=== PATIENT | female | born 1985 | race Caucasian/White ===

== ENCOUNTER 2018-11-04 23:02 | Inpatient (IN) | payer OTHER ==
[2018-11-05] MEDS ORDERED: ALBUTEROL SO4 2.5/IPRATROPIUM 0.5 INH SOL 3 ML VIAL.NEB. NEB ONE ×8 (00:03→16:30)
[2018-11-05] MEDS ORDERED: predniSONE 20 MG TABLET (UD) PO ONE (00:04)
--- NOTE | 2018-11-05 00:13 | PDOC ---
History of Present Illness - General Chief Complaint: Asthma Stated Complaint: ASTHMA History Source: Patient Exam Limitations: No Limitations - History of Present Illness Initial Comments: 11/05/18 00:06 33 yo F with h/o asthma, with frequent exacerbations since 04/24. has been on steroids over 6 times since then. pt states today she is here with sob, wheezing sore throat and cough. has been coughing up blood tinged sputum and yellow phlegm. no f/c no n/v no sickcontacts. pt states she took 20 mg prednisone prior to arrival and used albuterol 1 pump earlier. sees a trucker hand dr Rojas, states she has seen ENT and hasn't seen sandblast operator yet. 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 Past History - Past Medical History Allergies/Adverse Reactions: Allergies Allergy/AdvReac Type Severity Reaction Status Date / Time No Known Allergies Allergy Verified 11/04/18 23:29 Home Medications: Ambulatory Orders Metoclopramide HCl [Reglan] 10 mg PO Q6H PRN #20 tablet 04/08/16 Naproxen [Naprosyn -] 500 mg PO BID PRN #20 tablet 04/08/16 Asthma: Yes COPD: No - Surgical History Appendectomy: Yes - Suicide/Smoking/Psychosocial Hx Smoking History: Former smoker Have you smoked in the past 12 months: No Information on smoking cessation initiated: No Hx Alcohol Use: No Drug/Substance Use Hx: No Substance Use Type: None Hx Substance Use Treatment: No Review of Systems - Review of Systems Constitutional: No: Chills, Diaphoresis, Fever, Loss of Appetite HEENTM: Yes: Throat Pain. No: Eye Pain Respiratory: Yes: Cough, Shortness of Breath, Wheezing Cardiac (ROS): No: Chest Pain Musculoskeletal: No: Back Pain, Gout, Joint Pain Integumentary: Yes: Rash All Other Systems: Reviewed and Negative *Physical Exam - Vital Signs Last Vital Signs Temp Pulse Resp BP Pulse Ox 99.6 F 111 H 20 132/75 99 11/04/18 23:29 11/04/18 23:29 11/04/18 23:29 11/04/18 23:29 11/04/18 23:29 - Physical Exam Comments: 11/05/18 00:08 awake alert bilat expiratory wheezing. normal effort. no retractions. heart reg tacycardia. no mrg abd soft nt nd. ext [facility] ED Treatment Course - LABORATORY CBC & Chemistry Diagram: 11/05/18 03:45 11/05/18 03:45 Medical Decision Making - Medical Decision Making 11/05/18 00:10 33 yo F with h/o asthma, frequent exacerbations poorly controlled. suspect environmental triggers. plan nebs cxr r/o pneumonia. reassess. recommend allergy fu. pt on symbicort, also d/w possiblity of dog worsening sxs. or other exposers in home. 11/05/18 04:10 pt cxr with pna, due to asthma exacerbation and asthma, will admit. pt recently on abx, outpt. cally treat with azithromycin, ceftriaxone. microblog sent to [facility]. pt sees pulmonary dr quinonez, states no primary. *DC/Admit/Observation/Transfer Diagnosis at time of Disposition: Pneumonia, Asthma attack - Discharge Dispostion Decision to Admit order: Yes - Referrals - Patient Instructions - Post Discharge Activity
[2018-11-05] MEDS ORDERED: predniSONE 20 MG TABLET (UD) ONE (01:36)
[2018-11-05] MEDS ORDERED: AZITHROMYCIN IVPB 250 MG in DEXTROSE 5%-WATER - 250 ML IVPB ONE (03:06)
[2018-11-05] MEDS ORDERED: CEFTRIAXONE 1,000 MG in DEXTROSE 5%-WATER - 50 ML IVPB ONE (03:06)
[2018-11-05] MEDS ORDERED: CEFTRIAXONE 1 GM/50 ML BAG ONE (03:49)
[2018-11-05 04:13] LABS: BASO % 0.2 % (0-2.0); EOS % 0.3 % (0-4.5); HEMATOCRIT 37.9 % (32.4-45.2); HEMOGLOBIN 12.9 GM/dL (10.7-15.3); LYMPH % 3.4 % (8-40); MCH 28.3 pg (25.7-33.7); MCHC 34.1 g/dl (32.0-36.0); MEAN CELL VOLUME 83.1 fl (80-96); MEAN PLT VOLUME 8.9 fl (7.5-11.1); MONO % 2.1 % (3.8-10.2); PLATELET COUNT 214 K/MM3 (134-434); RBC 4.56 M/mm3 (3.60-5.2); RDW 13.4 % (11.6-15.6); WHITE BLOOD COUNT 10.3 K/mm3 (4.0-10.0)
--- NOTE | 2018-11-05 04:31 | PN ---
Teaching Attending Note Name of Resident: Jesse Rob ATTENDING PHYSICIAN STATEMENT I saw and evaluated the patient. I reviewed the resident's note and discussed the case with the resident. I agree with the resident's findings and plan as documented. SUBJECTIVE: Patient is a 33 year old woman with PMH of asthma, with frequent exacerbations since 04/24 presents with SOB, wheezing sore throat and cough . She has been on steroids over 6 times since 04/24. Has been coughing up blood tinged sputum and yellow phlegm. Says she took 20 mg prednisone prior to arrival and used albuterol 1 pump earlier. Sees a corporate learning consultant Dr Rojas. Also saw ENT but hasn' t seen train operations supervisor yet. 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 Denies fever, chills, nausea, vomiting or dizziness. Feels congested with sorethroat and pain in her posterior lower chest area due to coughing. Cough is productive of greenish sputum. Has urinary frequency but no dysuria. Has TREVINO and sleeps with four pillows at home. No leg swelling. Admits to alcohol use, cocaine and marijuana use. Generally nonadherent with medical care - cant remember her medications and does not remember whether she had Flu vaccination or not. LMP was 2 weeks ago, but says peiods are irregular due to an IUD. OBJECTIVE: Alert and in no respiratory distress Vital Signs Period Temp Pulse Resp BP Sys/Garcia Pulse Ox Last 24 Hr 99.6 F 111 20 132/75 99 HEENT: No Jaundice, eye redness or discharge, PERRLA, EOMI. Normocephalic, atraumatic. External ears are normal and hearing is grossly intact. No nasal discharge. Neck: Supple, nontender. No palpable adenopathy or thyromegaly. No JVD Chest: Good effort. Diminished breath sounds. Clear to auscultation and percussion. Heart: Regular. No S3, rub or murmur Abdomen: Not distended, soft, nontender and no HSM. No rebound or guarding. Normal bowel sounds. Ext: Peripheral pulses intact. No leg edema. Skin: Warm and dry. No petechiae, rash or ecchymosis. Neuro: Alert. Oriented x3. CN 2-12 grossly intact. Sensation grossly intact in all four extremities and DTR are symmetric. Psych: Appropriate mood and affect. Good insight. Home Medications Medication Instructions Recorded Metoclopramide HCl [Reglan] 10 mg PO Q6H PRN #20 tablet 04/08/16 Naproxen [Naprosyn -] 500 mg PO BID PRN #20 tablet 04/08/16 Abnormal Lab Results 11/05/18 03:45 WBC 10.3 H Absolute Neuts (auto) 9.7 H Neutrophils % 94.0 H D Lymphocytes % 3.4 L D Monocytes % 2.1 L ASSESSMENT AND PLAN: 1. Asthma exacerbation and Pneumonia - CXR shows cardiomegaly and RLL infiltrate with pulmonary congestion. EKG shows sinus tachycardia with T wave inversion in leads 3, V1 and V2. Will strept throat swab, flu swab and urine legionella antigen and UA. Blood cultures done in the ER. Will treat with Rocephin, azithromycin, duoneb and solumedrol 40 mg q 8 hours. Repeat EKG and get troponin. May have undiagnosed CHF. Will get ECHO, but in the meantime give 40 mg IV lasix , restrict dietary salt intake and get daily standing weight. Consult cardiology and get outpatient PFTs. May have a component of sleep apnea/obesity- hypoventilation syndrome. Most important, patient needs continuous education about her comorbid conditions and the importance of strict adherence to prescribed care. 2. Morbid obesity Counseled on the risks associated with obesity. Will provide patient all the necessary assistance, counseling and positive reinforcement to facilitate weight loss. Consult restaurant area manager. 3. DVT prophylaxis - Lovenox 40 mg SQ q 12 hours. 4. Advance directives - Full code
[2018-11-05 04:36] LABS: ALBUMIN 3.8 g/dl (3.4-5.0); ALK PHOS 53 U/L (45-117); ANION GAP 8 MMOL/L (8-16); BILIRUBIN,TOTAL 0.7 mg/dL (0.2-1); BLOOD UREA NITROGEN 12 mg/dL (7-18); CALCIUM 8.4 mg/dL (8.5-10.1); CHLORIDE 106 mmol/L (98-107); CO2 24 mmol/L (21-32); CREATININE 0.6 mg/dL (0.55-1.3); GLUCOSE,RANDOM 141 mg/dL (74-106); SGOT/AST 24 U/L (15-37); SGPT/ALT 20 U/L (13-61); SODIUM 137 mmol/L (136-145); TOT PROT 7.2 g/dl (6.4-8.2)
[2018-11-05] MEDS ORDERED: AZITHROMYCIN IVPB 500 MG/250 ML BAG IVPB ONE (04:40)
[2018-11-05 04:48] LABS: POTASSIUM 4.5 mmol/L (3.5-5.1)
--- NOTE | 2018-11-05 06:04 | HP ---
CHIEF COMPLAINT: Asthma exacerbation PCP: [facility] Axle And Frame Mechanic: Dr. Bob Salgado HISTORY OF PRESENT ILLNESS: Pt. is a 33 y.o. F presenting with shortness of breath, wheezing and and sinus congestions. Pt. states that she has been having multiple asthma exacerbations since April 2018 necessitating six courses of Prednisone and "5-12" Urgent Care/ Hospital visits over that time. Pt. states that she recently (last week)completed an antibiotic course for her sinus congestion per her visit with an ENT. Pt. states that she does not have a PCP and that she visits different Urgent Care centers and hospitals to receive treatment for her asthma exacerbations. Pt. states she was receiving "injections " for her asthma. Pt. does not remember her current medication list or her Pharmacy exactly but states that she was started on Symbicort by her Axle And Frame Mechanic and a Ventolin inhaler. Pt. endorses taking Prednisone on her own regimen that differs from what she was prescribed. She states that her last prescription was for 60mg x 5 days without taper. Pt. took 40 mg for 3 days and then stopped until she started feeling the current asthma exacerbation. Pt. endorses coughing up blood-tinged sputum at home six times, however has not recurred in the hospital. Pt. endorses 4 pillow orthopnea, inability to climb 2 flight of stairs without becoming short of breath even when she is not in the middle of an asthma exacerbation. Pt. states that the dyspnea on exertion has adversely affect her sex life. Pt. states that she "cant even bend down to tie her shoe without becoming short of breath. Pt. endorses chest soreness from coughing, nasal congestion, productive cough of now yellow-white sputum, increased urination, hoarse voice, sore throat, headache and fever of 103.1 at home. Pt. denies any diarrhea, constipation, blood in stool or urine, changes in vision, or any vomiting. ER course was notable for: (1)Duonebs x3, Azithro/Ceftriaxone, Prednisone 40mg (2)EKG, BCx. labs (3) Recent Travel: No PAST MEDICAL HISTORY: Asthma, Obesity PAST SURGICAL HISTORY: Appendectomy, x 2, B/l Bunionectomy Social History: Smoking: Quit in April, used to smoke socially (unable to quantify) Alcohol: Drinks more than 5 drinks on weekends, "states she drinks alot on weekends" Drugs: Tried Cocaine( last use was 1 month ago, inhaled, never IV), tried Marijuana oils (unable to use because it causes shortness of breath) Work: DRIVER SALES Living: Pt. endorses having dog, lives with and kids alone. Family History: Father- Asthma; Mother- Asthma, Myasthenia Gravis, HTN, Lupus; Aunt- Intubated for Asthma on multiple occasions and "hospitalized for Asthma every 3 months for exacerbations" Allergies Heat, Cold, Dust, mold HOME MEDICATIONS: Home Medications Medication Instructions Recorded Albuterol Sulfate Inhaler - 1 - 2 inh PO Q4H 11/05/18 [Ventolin Hfa Inhaler -] Prednisone [Deltasone] 40 mg PO DAILY 11/05/18 REVIEW OF SYSTEMS As per HPI PHYSICAL EXAMINATION Vital Signs - 24 hr 11/04/18 23:29 Temperature 99.6 F Pulse Rate 111 H Respiratory 20 Rate Blood Pressure 132/75 O2 Sat by Pulse 99 Oximetry (%) GENERAL: Awake, alert, and fully oriented, in no acute distress. HEAD: Normal with no signs of trauma. EYES: Pupils equal, round and reactive to light, extraocular movements intact, sclera anicteric, conjunctiva clear. No lid lag. EARS, NOSE, THROAT: B/l erythematous TM, nares patent with boggy erythematous nasal polyps?, oropharynx with mild erythema. Moist mucous membranes. NECK: Normal range of motion, supple, JVD +, without lymphadenopathy or masses. LUNGS: Breath sounds equal, clear to auscultation bilaterally. No wheezes, and no crackles. No accessory muscle use. HEART: Tachycardic regular rate and rhythm, normal S1 and S2 without murmur ABDOMEN: Soft, nontender, obese, not distended, normoactive bowel sounds, no guarding, no rebound, no masses. MUSCULOSKELETAL: Normal range of motion at all joints. No bony deformities or tenderness. No CVA tenderness. UPPER EXTREMITIES: 2+ radial pulses, warm, well-perfused. No cyanosis. No clubbing. No peripheral edema. LOWER EXTREMITIES: 2+ dorsal pedal pulses, warm, well-perfused. No calf tenderness. No peripheral edema. NEUROLOGICAL: Normal speech. PSYCHIATRIC: Cooperative. Good eye contact. Appropriate mood and affect. SKIN: Warm, dry, normal turgor, no rashes or lesions noted, normal capillary refill. Laboratory Results - last 24 hr 11/05/18 11/05/18 11/05/18 00:55 03:45 03:45 WBC 10.3 H RBC 4.56 Hgb 12.9 Hct 37.9 MCV 83.1 MCH 28.3 MCHC 34.1 RDW 13.4 Plt Count 214 D MPV 8.9 Absolute Neuts (auto) 9.7 H Neutrophils % 94.0 H D Lymphocytes % 3.4 L D Monocytes % 2.1 L Eosinophils % 0.3 D Basophils % 0.2 Nucleated RBC % 0 Sodium 137 Potassium 4.5 Chloride 106 Carbon Dioxide 24 Anion Gap 8 BUN 12 Creatinine 0.6 Creat Clearance w eGFR 113.77 Random Glucose 141 H Lactic Acid Calcium 8.4 L Total Bilirubin 0.7 AST 24 ALT 20 Alkaline Phosphatase 53 Total Protein 7.2 Albumin 3.8 Urine HCG, Qual Negative 11/05/18 03:45 WBC RBC Hgb Hct MCV MCH MCHC RDW Plt Count MPV Absolute Neuts (auto) Neutrophils % Lymphocytes % Monocytes % Eosinophils % Basophils % Nucleated RBC % Sodium Potassium Chloride Carbon Dioxide Anion Gap BUN Creatinine Creat Clearance w eGFR Random Glucose Lactic Acid 0.9 Calcium Total Bilirubin AST ALT Alkaline Phosphatase Total Protein Albumin Urine HCG, Qual ASSESSMENT/PLAN: Pt. is a 33 y.o. F w/ PMHx. of Asthma presents with shortness of breath, wheezing and and sinus congestions. #Asthma Exacerbation 2/2 Allergies vs. Pnuemonia? Medication Reconciliation Duonebs RQID Prednisone 40mg Q8H Pulmonology consult (Dr. Morejon) appreciated CXR appreciated: shows increased pulmonary vasculature and developing RLL PNA? Given Azithromycin and Ceftriaxone in ED f/u BCx. f/u UA, polyuria may be d/t prednisone use vs. UTI. LA: 0.9 f/u Influenza swab Would consider giving Pneumococal Vaccine Would consider referral to talkback host on discharge would consider starting daily antihistamine, Pt. states she has tried this in the past but unsure of compliance and duration. #R/o new onset CHF Pt. stated that her Axle And Frame Mechanic referred her to see marketing operations intern, however she has been unable to see one d/t Prior-authorization issues. f/u Echo Cardiology consult (Dr. Valenzuela) appreciated 40mg IV Lasix- Diagnostic and Therapeutic f/u Trop f/u BNP #FEN no IVF, encourage PO intake monitor electrolytes and replete as needed Na/cholesterol restricted diet #DVT Ppx. Lovenox 40mg SQ Visit type - Emergency Visit Emergency Visit: Yes ED Registration Date: 11/05/18 Care time: The patient presented to the Emergency Department on the above date and was hospitalized for further evaluation of their emergent condition. - New Patient This patient is new to me today: Yes Date on this admission: 11/05/18 - Critical Care Critical Care patient: No
[2018-11-05] MEDS ORDERED: FUROSEMIDE 40 MG/4 ML INJECTABLE VIAL IVPUSH ONE (06:05)
[2018-11-05 06:33] LABS: N-TERMINAL BNP 11.7 pg/ml (5-125)
[2018-11-05 07:59] LABS: ANISOCYTOSIS 1+; MACROCYTOSIS 0; PLATELET ESTIMATE NORMAL
[2018-11-05] MEDS ORDERED: FUROSEMIDE 40 MG/4 ML INJECTABLE VIAL ONE (08:23)
[2018-11-05] MEDS: ALBUTEROL SO4 2.5/IPRATROPIUM 0.5 INH SOL 3 ML VIAL.NEB. NEB SCH ×4 (09:13→20:37)
[2018-11-05] MEDS ORDERED: ACETAMINOPHEN 325 MG TABLET (FP) ONE (09:22)
[2018-11-05] MEDS: ACETAMINOPHEN 500 MG TABLET (FP) PO PRN (09:26)
--- NOTE | 2018-11-05 09:36 | CON.CARD ---
Consult Consult Specialty:: cardio - History of Present Illness Chief Complaint: sob History of Present Illness: 33 F here with sob. Pt with asthma and multiple recent exacerbations treated at multiple outside locations with fragmentation of care. Pt. endorses chest soreness from coughing, nasal congestion, productive cough of now yellow-white sputum, increased urination, hoarse voice, sore throat, headache and fever of 103.1 at home. Pt reports baseline, chronic/stable orthopnea and sob on stairs. CXR here read as PNA and vascular congestion also suspected--hence we are consulted for possibility of CHF. BNP is 11 she states that she has had no chest pain other than above related to coughing. at times chest feels "tight" related to airflow/asthma--this is stable sx long time. at times notes feet swollen when on her feet a lot of the day--can't say when it started but not recent onset and stable finding/not severe FH: known AL's in father's relatives. knows of no h/o cardiomyop/CHF - Alcohol/Substance Use Hx Alcohol Use: No - Smoking History Smoking history: Former smoker Have you smoked in the past 12 months: No Home Medications - Allergies Allergies/Adverse Reactions: Allergies Allergy/AdvReac Type Severity Reaction Status Date / Time No Known Allergies Allergy Verified 11/04/18 23:29 - Home Medications Home Medications: Ambulatory Orders Albuterol Sulfate Inhaler - [Ventolin Hfa Inhaler -] 1 - 2 inh PO Q4H 11/05/18 Azelastine HCl 205.5 mcg NS 11/05/18 Budesonide/Formeterol Fumarate [SYMBICORT 160/4.5mcg -] 1 inh PO BID 11/05/18 Flunisolide 25 ml NS 11/05/18 Montelukast Sodium [Singulair] 10 mg PO 11/05/18 Prednisone [Deltasone] 40 mg PO DAILY 11/05/18 Review of Systems - Review of Systems Constitutional: denies: Chills, Fever Eyes: denies: Eye Pain HENT: denies: Nasal Congestion Neck: denies: Stiffness Cardiovascular: denies: Palpitations Respiratory: reports: Cough, Orthopnea, Wheezing Gastrointestinal: denies: Diarrhea, Rectal Bleeding Genitourinary: denies: Burning, Hematuria Musculoskeletal: denies: Muscle Pain Integumentary: denies: Rash Neurological: denies: Numbness, Seizure, Syncope Endocrine: denies: Excessive Sweating Hematology/Lymphatic: denies: Excessive Bleeding Vital Signs: Vital Signs Temperature 98.0 F 11/05/18 08:00 Pulse Rate 100 H 11/05/18 08:00 Respiratory Rate 18 11/05/18 08:00 Blood Pressure 113/69 11/05/18 08:00 O2 Sat by Pulse Oximetry (%) 95 11/05/18 08:00 Constitutional: Yes: Well Nourished, No Distress Eyes: No: Sclera Icterus HENT: No: Nasal Congestion Neck: No: Decreased ROM Respiratory: Yes: CTA Bilaterally (signif decr airflow sounds diffusely). No: Accessory Muscle Use, Rales, Wheezes Gastrointestinal: Yes: Normal Bowel Sounds. No: Distention, Hepatomegaly, Palpable Mass, Tenderness Cardiovascular: Yes: Regular Rate and Rhythm JVD: No Carotid Bruit: No PMI: Non-Displaced Heart Sounds: Yes: S1, S2. No: Gallop Murmur: No: Systolic Murmur, Diastolic Murmur Musculoskeletal: Yes: Other (No kyphosis) Extremities: No: Cool, Cyanosis Edema: No Peripheral Pulses: 2+ Left Carotid, 2+ Right Carotid, 2+ Left Doralis Pedis, 2+ Right Dorsalis Pedis Integumentary: No: Jaundice Neurological: Yes: Alert, Oriented (x3) Psychiatric: No: Agitated - Other Data Labs, Other Data: CBC, BMP 11/05/18 03:45 11/05/18 03:45 Troponin, BNP 11/05/18 03:45 Troponin I < 0.02 B-Natriuretic Peptide 11.7 Troponin, BNP 11/05/18 03:45 Troponin I < 0.02 B-Natriuretic Peptide 11.7 Laboratory Tests 11/05/18 11/05/18 03:45 03:45 WBC 10.3 H Hgb 12.9 Plt Count 214 D Sodium 137 Potassium 4.5 Carbon Dioxide 24 BUN 12 Creatinine 0.6 AST 24 ALT 20 Alkaline Phosphatase 53 Troponin I < 0.02 B-Natriuretic Peptide 11.7 Assessment/Plan CXR: "new congestive changes with large heart and weak inspiration vs 2015" images reviewed: no effusions, no fluid in fissure, no pulm edema suspected, no vasc redistribution noted ECG x 2: sinus, no q's or ST-T abn SOB, a.e. asthma: -CXR not impressive for vasc congestion or other findings of heart failure in my opinion, nor does heart look impressively enlargd. BNP 11. -phys exam appears euvolemic -check echo -given lasix 40 IV x 1 in ER -do not think pt is in heart failure--defer further diuresis -asthma mgmt per pulm
--- NOTE | 2018-11-05 09:55 | EKG ---
Test Reason : Blood Pressure : / mmHG Vent. Rate : 104 BPM Atrial Rate : 104 BPM P-R Int : 162 ms QRS Dur : 080 ms QT Int : 338 ms P-R-T Axes : 056 049 020 degrees QTc Int : 444 ms SINUS TACHYCARDIA OTHERWISE NORMAL ECG WHEN COMPARED WITH ECG OF 05-NOV-2018 03:16, NO SIGNIFICANT CHANGE WAS FOUND Confirmed by YELENA DAVILA MD ([id number]) on 11/05/2018 9:55:34 AM Referred By: JOHNNIE DE LEON Confirmed By:YELENA DAVILA MD
--- NOTE | 2018-11-05 09:57 | EKG ---
Test Reason : Blood Pressure : / mmHG Vent. Rate : 104 BPM Atrial Rate : 104 BPM P-R Int : 152 ms QRS Dur : 076 ms QT Int : 348 ms P-R-T Axes : 054 065 007 degrees QTc Int : 457 ms SINUS TACHYCARDIA OTHERWISE NORMAL ECG NO PREVIOUS ECGS AVAILABLE Confirmed by YELENA DAVILA MD ([id number]) on 11/05/2018 9:57:14 AM Referred By: Confirmed By:YELENA DAVILA MD
[2018-11-05] MEDS ORDERED: PHENOL 177 ML SPRAY BOTTLE MM PRN (09:58)
--- NOTE | 2018-11-05 10:12 | PN ---
Physical Exam: SUBJECTIVE: Patient seen and examined at bedside. No new events. Continues to be short of breath but improved. She has chest discomfort when she coughs. Denies JUAN, palpitations, abdominal pain, nausea,vomiting, fever or chills. OBJECTIVE: Vital Signs Period Temp Pulse Resp BP Sys/Garcia Pulse Ox Last 24 Hr 98.0 F-100.6 F 100-111 18-20 113-132/69-75 95-99 GENERAL: AAOx3, NAD HEAD: NCAT EYES: PERRL, EOMI, sclera anicteric, conjunctiva clear. No ptosis. ENT: moist mucous membranes. NECK: Trachea midline, full range of motion, supple. LUNGS:Diminished breath sounds bilat., scattered expiratory wheezing > R, no crackles, no accessory muscle use. HEART:Tachycardic, S1, S2 without murmur, rub or gallop. ABDOMEN: Soft, Obese,NTND, NABS, no guarding, no rebound, no hepatosplenomegaly , no masses. EXTREMITIES: 2+ pulses, warm, well-perfused, trace LE edema. NEUROLOGICAL: Cranial nerves II through XII grossly intact. Normal speech, gait not observed. PSYCH: Normal mood, normal affect. SKIN: Warm, dry, normal turgor, no rashes or lesions noted Laboratory Results - last 24 hr 11/05/18 11/05/18 11/05/18 00:55 03:45 03:45 WBC 10.3 H RBC 4.56 Hgb 12.9 Hct 37.9 MCV 83.1 MCH 28.3 MCHC 34.1 RDW 13.4 Plt Count 214 D MPV 8.9 Absolute Neuts (auto) 9.7 H Neutrophils % 94.0 H D Neutrophils % (Manual) 98.0 H Band Neutrophils % 0.0 Lymphocytes % 3.4 L D Lymphocytes % (Manual) 2.0 L Monocytes % 2.1 L Monocytes % (Manual) 0 L Eosinophils % 0.3 D Eosinophils % (Manual) 0.0 Basophils % 0.2 Basophils % (Manual) 0.0 Myelocytes % (Man) 0 Promyelocytes % (Man) 0 Blast Cells % (Manual) 0 Nucleated RBC % 0 Metamyelocytes 0 Hypochromia 0 Platelet Estimate Normal Polychromasia 0 Poikilocytosis 0 Anisocytosis 1+ Microcytosis 1+ Macrocytosis 0 Sodium 137 Potassium 4.5 Chloride 106 Carbon Dioxide 24 Anion Gap 8 BUN 12 Creatinine 0.6 Creat Clearance w eGFR 113.77 Random Glucose 141 H Lactic Acid Calcium 8.4 L Total Bilirubin 0.7 AST 24 ALT 20 Alkaline Phosphatase 53 Troponin I < 0.02 B-Natriuretic Peptide 11.7 Total Protein 7.2 Albumin 3.8 Urine HCG, Qual Negative 11/05/18 03:45 WBC RBC Hgb Hct MCV MCH MCHC RDW Plt Count MPV Absolute Neuts (auto) Neutrophils % Neutrophils % (Manual) Band Neutrophils % Lymphocytes % Lymphocytes % (Manual) Monocytes % Monocytes % (Manual) Eosinophils % Eosinophils % (Manual) Basophils % Basophils % (Manual) Myelocytes % (Man) Promyelocytes % (Man) Blast Cells % (Manual) Nucleated RBC % Metamyelocytes Hypochromia Platelet Estimate Polychromasia Poikilocytosis Anisocytosis Microcytosis Macrocytosis Sodium Potassium Chloride Carbon Dioxide Anion Gap BUN Creatinine Creat Clearance w eGFR Random Glucose Lactic Acid 0.9 Calcium Total Bilirubin AST ALT Alkaline Phosphatase Troponin I B-Natriuretic Peptide Total Protein Albumin Urine HCG, Qual Active Medications Generic Name Dose Route Start Last Admin Trade Name Freq PRN Reason Stop Dose Admin Acetaminophen 1,000 mg 11/05/18 08:55 11/05/18 09:26 Tylenol - PO 975 mg Q6H PRN Administration PAIN OR FEVER Albuterol/Ipratropium 1 amp 11/05/18 08:00 11/05/18 09:13 Duoneb - NEB 1 amp RQID ELIZABETH Administration Enoxaparin Sodium 40 mg 11/05/18 10:00 Lovenox - SQ DAILY [facility] Methylprednisolone Sodium Succinate 40 mg 11/05/18 10:00 Solu-Medrol - IVPUSH Q8H-IV [facility] Phenol/Menthol 1 spray 11/05/18 09:58 Chloraseptic - MM Q6HPO PRN SORE THROAT ASSESSMENT/PLAN: 33 y.o. F w/ PMHx. of Asthma presents with shortness of breath, wheezing and and sinus congestions. Problem List - Problems (1) Chronic asthma with acute exacerbation Assessment/Plan: Severe persistent asthma with nightly attacks(sleeps with Inhaler under pillow) * Pulmonology consult pending. * Solumedrol 40mg IV Q6H * Azithro and Ceftriaxone x1 given in ED. * Continue Singulair 10mg PO daily. . * Duonebs QID * Albuterol PRN. * Supplemental O2 PRN , Maintain SpO2 >90% * Peak Flow measurement 350- for her age and height should be 408 (2) Pneumonia Assessment/Plan: * She recently (last week) completed a 5 day course of Azithromycin (Z-Pack) * Azithro and Ceftriaxone given in ER. * Will await Pulmonology recs to continue Abx. * blood and sputum cultures pending * Urine for PNA antigen pending. * Influenza and RSV pending. Qualifiers: Pneumonia type: due to unspecified organism Laterality: unspecified laterality Lung location: unspecified part of lung Qualified Code(s): J18.9 - Pneumonia, unspecified organism (3) Orthopnea Assessment/Plan: * Cardiology consult appreciated. * BNP 11 * CXR shows possible congestion * ECHO pending * Lasix 40 IV given in ED * monitor output. (4) Obesity, Class III, BMI 40-49.9 (morbid obesity) Assessment/Plan: * Counseled on the risks associated with obesity and how it can affect asthma severity. * Will provide patient all the necessary assistance, counseling and positive reinforcement to facilitate weight loss. * Consult metal weather stripper. (5) DVT prophylaxis Assessment/Plan: Lovenox 40mg SQ daily Visit type - Emergency Visit Emergency Visit: Yes ED Registration Date: 11/05/18 Care time: The patient presented to the Emergency Department on the above date and was hospitalized for further evaluation of their emergent condition. - New Patient This patient is new to me today: Yes Date on this admission: 11/06/18 - Critical Care Critical Care patient: No
[2018-11-05] MEDS: ENOXAPARIN NA (PORCINE) 40 MG/0.4 ML DISP.SYRIN SQ SCH (10:24)
[2018-11-05] MEDS: methylPREDNISolone NA SUCC 40 MG/1 ML VIAL IVPUSH SCH ×2 (10:24→18:19)
--- NOTE | 2018-11-05 12:32 | PN ---
Teaching Attending Note Name of Resident: Rakan Maddox ATTENDING PHYSICIAN STATEMENT I saw and evaluated the patient. I reviewed the resident's note and discussed the case with the resident. I agree with the resident's findings and plan as documented. SUBJECTIVE: Patient feels less SOB. She reports a cough with green sputum. OBJECTIVE: Vital Signs Period Temp Pulse Resp BP Sys/Garcia Pulse Ox Last 24 Hr 98.0 F-100.6 F 100-111 18-20 113-132/69-75 95-99 HEART: S1S2, tachycardic LUNGS: BS diminished throughout, bilateral wheezes ABDOMEN: Obese, soft, non-tender, non-distended, normal BS EXTREMITIES: No edema Laboratory Results - last 24 hr 11/05/18 11/05/18 11/05/18 00:55 03:45 03:45 WBC 10.3 H RBC 4.56 Hgb 12.9 Hct 37.9 MCV 83.1 MCH 28.3 MCHC 34.1 RDW 13.4 Plt Count 214 D MPV 8.9 Absolute Neuts (auto) 9.7 H Neutrophils % 94.0 H D Neutrophils % (Manual) 98.0 H Band Neutrophils % 0.0 Lymphocytes % 3.4 L D Lymphocytes % (Manual) 2.0 L Monocytes % 2.1 L Monocytes % (Manual) 0 L Eosinophils % 0.3 D Eosinophils % (Manual) 0.0 Basophils % 0.2 Basophils % (Manual) 0.0 Myelocytes % (Man) 0 Promyelocytes % (Man) 0 Blast Cells % (Manual) 0 Nucleated RBC % 0 Metamyelocytes 0 Hypochromia 0 Platelet Estimate Normal Polychromasia 0 Poikilocytosis 0 Anisocytosis 1+ Microcytosis 1+ Macrocytosis 0 Sodium 137 Potassium 4.5 Chloride 106 Carbon Dioxide 24 Anion Gap 8 BUN 12 Creatinine 0.6 Creat Clearance w eGFR 113.77 Random Glucose 141 H Lactic Acid Calcium 8.4 L Total Bilirubin 0.7 AST 24 ALT 20 Alkaline Phosphatase 53 Troponin I < 0.02 B-Natriuretic Peptide 11.7 Total Protein 7.2 Albumin 3.8 Urine HCG, Qual Negative 11/05/18 03:45 WBC RBC Hgb Hct MCV MCH MCHC RDW Plt Count MPV Absolute Neuts (auto) Neutrophils % Neutrophils % (Manual) Band Neutrophils % Lymphocytes % Lymphocytes % (Manual) Monocytes % Monocytes % (Manual) Eosinophils % Eosinophils % (Manual) Basophils % Basophils % (Manual) Myelocytes % (Man) Promyelocytes % (Man) Blast Cells % (Manual) Nucleated RBC % Metamyelocytes Hypochromia Platelet Estimate Polychromasia Poikilocytosis Anisocytosis Microcytosis Macrocytosis Sodium Potassium Chloride Carbon Dioxide Anion Gap BUN Creatinine Creat Clearance w eGFR Random Glucose Lactic Acid 0.9 Calcium Total Bilirubin AST ALT Alkaline Phosphatase Troponin I B-Natriuretic Peptide Total Protein Albumin Urine HCG, Qual Current Medications Generic Name Dose Route Start Last Admin Trade Name Freq PRN Reason Stop Dose Admin Acetaminophen 1,000 mg 11/05/18 08:55 11/05/18 09:26 Tylenol - PO 975 mg Q6H PRN Administration PAIN OR FEVER Albuterol/Ipratropium 1 amp 11/05/18 08:00 11/05/18 12:27 Duoneb - NEB 1 amp RQID ELIZABETH Administration Enoxaparin Sodium 40 mg 11/05/18 10:00 11/05/18 10:24 Lovenox - SQ 40 mg DAILY ELIZABETH Administration Methylprednisolone Sodium Succinate 40 mg 11/05/18 10:00 11/05/18 10:24 Solu-Medrol - IVPUSH 40 mg Q8H-IV ELIZABETH Administration Montelukast Sodium 10 mg 11/05/18 22:00 Singulair - PO HS ELIZABETH Non-Formulary Medication 205.5 mcg 11/06/18 10:00 Azelastine Hcl [Azelastine Hcl] NS DAILY [facility]ETH Phenol/Menthol 1 spray 11/05/18 09:58 Chloraseptic - MM Q6HPO PRN SORE THROAT ASSESSMENT AND PLAN: This is a 33 year old woman with a history of asthma, obesity who presented to the ED with shortness of breath, wheezing, sinus congestions. 1. Acute exacerbation of chronic persistent asthma - Continue SoluMedrol, Singulair, DuoNeb - Pulmonary consult 2. SIRS, possible sepsis - Doubt pneumonia - Possible URI/acute bronchitis - Ceftriaxone, Zithromax given in ED - Blood cultures pending 3. Doubt CHF - Lasix IV given in ED - Cardiology input appreciated - Echo pending Morbid obesity with BMI 41.0
--- NOTE | 2018-11-05 14:01 | ECHO ---
Name: YENNI QUISPE Exam:Adult Echocardiogram Study Date: 11/05/2018 08:17 AM Age: 33 yrs Reason For Study: WMA Height: 60 in Weight: 210 lb BSA: 1.9 m2 MMode/2D Measurements & Calculations IVSd: 0.84 cm Ao root diam: 2.6 cm LVIDd: 4.5 cm LA dimension: 3.4 cm LVIDs: 2.6 cm LVPWd: 1.1 cm EDV(Teich): 91.0 ml LVOT diam: 2.0 cm ESV(Teich): 24.3 ml LAV (MOD-bp): 42.4 ml Doppler Measurements & Calculations MV E max jason: 98.5 cm/sec Ao V2 max: 210.4 cm/sec MV A max jason: 98.0 cm/sec Ao max P.7 mmHg MV E/A: 1.0 MV dec time: 0.07 sec JAMAL(V,D): 2.1 cm2 LV V1 max P.1 mmHg PA V2 max: 124.9 cm/sec LV V1 max: 142.1 cm/sec PA max P.2 mmHg Med Peak E' Jason: 14.7 cm/sec Med E/e': 6.7 Lat Peak E' Jason: 18.8 cm/sec Lat E/e': 5.2 Procedure A complete two-dimensional transthoracic echocardiogram was performed (2D, M-mode, Doppler and color flow Doppler). Left Ventricle The left ventricle is normal in size. Left ventricular systolic function is normal. Ejection Fraction = >70%. No regional wall motion abnormalities noted. Right Ventricle The right ventricle is normal size. The right ventricular systolic function is normal. Atria The left atrial size is normal. LA volume index is 22 ml/m2. Right atrial size is normal. Mitral Valve The mitral valve is normal in structure and function. There is no mitral regurgitation noted. Tricuspid Valve The tricuspid valve is normal in structure and function. There is mild tricuspid regurgitation. Aortic Valve The aortic valve is normal in structure and function. No aortic regurgitation is present. Pulmonic Valve The pulmonic valve is not well visualized. Great Vessels The aortic root is normal size. Pericardium/Pleura There is no pericardial effusion. Interpretation Summary The left ventricle is normal in size. Left ventricular systolic function is normal. No regional wall motion abnormalities noted. Ejection Fraction = >70%. The right ventricular systolic function is normal. The left atrial size is normal. Right atrial size is normal. There is mild tricuspid regurgitation. There is no pericardial effusion. Previous study is not available for comparison Mc Meza MD 11/05/2018 02:01 PM
--- NOTE | 2018-11-05 14:30 | CON.PULM ---
Consult Consult Specialty:: PULM/CCM Referred by:: Hospitalist Reason for Consultation:: SOB - History of Present Illness Chief Complaint: SOB History of Present Illness: 33 F, likely allergic asthma. Baseline PEF around 350. Never intubated. Not steroid dependent. Has very fragmented care. Significant rhinitis symptoms. Had an appointment to see a Program Research Specialist but missed the appointment. Reports productive cough of yellow sputum, one episode of scant hemoptysis, hoarse voice, sore throat, and headache. BNP is 11 She does snore and does have symptoms consistent with OSAS. Her has told her that she has apneas and abnormal breathing while sleeping. CXR: do not suspect CHF. No acute infiltrates. - History Source History Provided By: Patient Limitations to Obtaining History: No Limitations - Past Medical History Pulmonary: Yes: Asthma, Bronchitis, Sleep Apnea. No: COPD, O2 Dependent, Pneumonia, Previously Intubated, Pulmonary Embolus, Pulmonary Fibrosis - Alcohol/Substance Use Hx Alcohol Use: No - Smoking History Smoking history: Former smoker Have you smoked in the past 12 months: No Home Medications - Allergies Allergies/Adverse Reactions: Allergies Allergy/AdvReac Type Severity Reaction Status Date / Time No Known Allergies Allergy Verified 11/04/18 23:29 - Home Medications Home Medications: Ambulatory Orders Albuterol Sulfate Inhaler - [Ventolin Hfa Inhaler -] 1 - 2 inh PO Q4H 11/05/18 Azelastine HCl 205.5 mcg NS 11/05/18 Budesonide/Formeterol Fumarate [SYMBICORT 160/4.5mcg -] 1 inh PO BID 11/05/18 Flunisolide 25 ml NS 11/05/18 Montelukast Sodium [Singulair] 10 mg PO 11/05/18 Prednisone [Deltasone] 40 mg PO DAILY 11/05/18 Review of Systems - Review of Systems Constitutional: reports: Fever, Malaise. denies: Chills, Night Sweats, Unintentional Wgt. Loss, Weakness Eyes: reports: No Symptoms HENT: reports: No Symptoms Neck: reports: No Symptoms Cardiovascular: reports: Chest Pain, Shortness of Breath. denies: Edema, Palpitations Respiratory: reports: Cough, Hemoptysis, Snoring, SOB, SOB on Exertion, Wheezing Gastrointestinal: reports: No Symptoms Genitourinary: reports: No Symptoms Breasts: reports: No Symptoms Reported Musculoskeletal: reports: No Symptoms Integumentary: reports: No Symptoms Neurological: reports: No Symptoms Endocrine: reports: No Symptoms Hematology/Lymphatic: reports: No Symptoms Psychiatric: reports: No Symptoms Physical Exam Vital Sings: Vital Signs Temperature 98.0 F 11/05/18 08:00 Pulse Rate 100 H 11/05/18 08:00 Respiratory Rate 18 11/05/18 08:00 Blood Pressure 113/69 11/05/18 08:00 O2 Sat by Pulse Oximetry (%) 95 11/05/18 08:00 Constitutional: Yes: No Distress, Calm Eyes: Yes: Conjunctiva Clear, EOM Intact HENT: Yes: Atraumatic, Normocephalic Neck: Yes: Supple, Trachea Midline Cardiovascular: Yes: Regular Rate and Rhythm Respiratory: Yes: Cough, Diminished, Rhonchi, SOB, SOB on Exertion, Tachypnea, Wheezes. No: Accessory Muscle Use, Rales, Stridor ...Inspection: Yes: WNL ...Clubbing: No Gastrointestinal: Yes: Normal Bowel Sounds, Soft Renal/: Yes: WNL Musculoskeletal: Yes: WNL Extremities: Yes: WNL Edema: No Peripheral Pulses WNL: Yes Integumentary: Yes: WNL Neurological: Yes: WNL, Alert, Oriented ...Motor Strength: WNL Psychiatric: Yes: WNL, Alert, Oriented Labs: CBC, BMP 11/05/18 03:45 11/05/18 03:45 Imaging - Results Chest X-ray: Report Reviewed, Image Reviewed Problem List - Problems (1) URI (upper respiratory infection) Code(s): J06.9 - ACUTE UPPER RESPIRATORY INFECTION, UNSPECIFIED (2) Chronic asthma with acute exacerbation Code(s): J45.901 - UNSPECIFIED ASTHMA WITH (ACUTE) EXACERBATION Qualifiers: Asthma severity: severe Asthma persistence: persistent Qualified Code(s) : J45.51 - Severe persistent asthma with (acute) exacerbation (3) Obesity, Class III, BMI 40-49.9 (morbid obesity) Code(s): E66.01 - MORBID (SEVERE) OBESITY DUE TO EXCESS CALORIES (4) Bronchitis Code(s): J40 - BRONCHITIS, NOT SPECIFIED ACUTE OR CHRONIC Assessment/Plan Medrol BD TX Singulair Sleep screen and will need formal workup after discharge O2 as needed No smoking PFTs after D/C Daily PEF Will need allergy evaluation after D/C as her asthma seems allergic based Will follow Thank you. Dr Antonio
[2018-11-05 17:18] LABS: EPI CELLS 5.4 /HPF (0-5); PH,URINE 6.5 (5.0-8.0); URINE APPEARANCE CLEAR; URINE BACTERIA 5.4 /hpf (NEGATIVE); URINE BILIRUBIN NEGATIVE (NEGATIVE); URINE CASTS 7 /hpf (0-8); URINE COLOR YELLOW; URINE GLUCOSE (UA) NEGATIVE (NEGATIVE); URINE KETONE NEGATIVE (NEGATIVE); URINE LEUK ESTERASE TRACE (NEGATIVE); URINE NITRITE NEGATIVE (NEGATIVE); URINE PROTEIN TRACE (NEGATIVE); URINE RBC 1 /hpf (0-4); URINE WBC 2 /hpf (0-5)
[2018-11-05] MEDS ORDERED: diphenhydrAMINE HCL 25 MG CAPSULE (FP) PO ONE (20:49)
[2018-11-05] MEDS ORDERED: PT OWN MED DRAWER 7, Y5N ONE (21:54)
[2018-11-05] MEDS: MONTELUKAST NA 10 MG TABLET PO SCH (22:00)
[2018-11-06] MEDS: methylPREDNISolone NA SUCC 40 MG/1 ML VIAL IVPUSH SCH ×3 (02:00→18:59)
--- NOTE | 2018-11-06 08:12 | PN ---
Teaching Attending Note Name of Resident: Darrell Mckeon ATTENDING PHYSICIAN STATEMENT I saw and evaluated the patient. I reviewed the resident's note and discussed the case with the resident. I agree with the resident's findings and plan as documented. SUBJECTIVE: Patient is slightly better but continues to wheeze. OBJECTIVE: Vital Signs Temperature 98.3 F 11/06/18 05:54 Pulse Rate 100 H 11/06/18 05:54 Respiratory Rate 20 11/06/18 05:54 Blood Pressure 126/70 11/06/18 05:54 O2 Sat by Pulse Oximetry (%) 95 11/06/18 05:00 GENERAL: AAOx3, NAD, HEAD: NCAT EYES: PERRL, EOMI, sclera anicteric, conjunctiva clear. ENT: moist mucous membranes. NECK: Trachea midline, full range of motion, supple. LUNGS:Diminished breath sounds bilat., scattered expiratory wheezing L > R, no crackles, no accessory muscle use. HEART: Tachycardic, S1, S2 without murmur, rub or gallop. ABDOMEN: Soft, NT,ND, no guarding, no rebound, no hepatosplenomegaly, no masses. EXTREMITIES: 2+ pulses, warm, well-perfused, trace LE edema. NEUROLOGICAL: Cranial nerves II through XII grossly intact. Normal speech, gait is stable PSYCH: Normal mood, normal affect. SKIN: Warm, dry, normal turgor, no rashes or lesions noted WBC 10.3 K/mm3 (4.0-10.0) H 11/05/18 03:45 RBC 4.56 M/mm3 (3.60-5.2) 11/05/18 03:45 Hgb 12.9 GM/dL (10.7-15.3) 11/05/18 03:45 Hct 37.9 % (32.4-45.2) 11/05/18 03:45 MCV 83.1 fl (80-96) 11/05/18 03:45 MCHC 34.1 g/dl (32.0-36.0) 11/05/18 03:45 RDW 13.4 % (11.6-15.6) 11/05/18 03:45 Plt Count 214 K/MM3 (134-434) D 11/05/18 03:45 MPV 8.9 fl (7.5-11.1) 11/05/18 03:45 CMP Sodium 137 mmol/L (136-145) 11/05/18 03:45 Potassium 4.5 mmol/L (3.5-5.1) 11/05/18 03:45 Chloride 106 mmol/L (98-107) 11/05/18 03:45 Carbon Dioxide 24 mmol/L (21-32) 11/05/18 03:45 Anion Gap 8 MMOL/L (8-16) 11/05/18 03:45 BUN 12 mg/dL (7-18) 11/05/18 03:45 Creatinine 0.6 mg/dL (0.55-1.3) 11/05/18 03:45 Creat Clearance w eGFR 113.77 (>60) 11/05/18 03:45 Random Glucose 141 mg/dL (74-106) H 11/05/18 03:45 Calcium 8.4 mg/dL (8.5-10.1) L 11/05/18 03:45 Total Bilirubin 0.7 mg/dL (0.2-1) 11/05/18 03:45 AST 24 U/L (15-37) 11/05/18 03:45 ALT 20 U/L (13-61) 11/05/18 03:45 Alkaline Phosphatase 53 U/L (45-117) 11/05/18 03:45 Total Protein 7.2 g/dl (6.4-8.2) 11/05/18 03:45 Albumin 3.8 g/dl (3.4-5.0) 11/05/18 03:45 CARDIAC ENZYMES Troponin I < 0.02 ng/ml (0.00-0.05) 11/05/18 03:45 Current Medications Generic Name Dose Route Start Last Admin Trade Name Freq PRN Reason Stop Dose Admin Acetaminophen 1,000 mg 11/05/18 08:55 11/05/18 09:26 Tylenol - PO 975 mg Q6H PRN Administration PAIN OR FEVER Albuterol/Ipratropium 1 amp 11/05/18 08:00 11/05/18 20:37 Duoneb - NEB 1 amp RQID ELIZABETH Administration Enoxaparin Sodium 40 mg 11/05/18 10:00 11/05/18 10:24 Lovenox - SQ 40 mg DAILY [facility] Administration Methylprednisolone Sodium Succinate 40 mg 11/05/18 10:00 11/06/18 02:00 Solu-Medrol - IVPUSH 40 mg Q8H-IV [facility] Administration Montelukast Sodium 10 mg 11/05/18 22:00 11/05/18 22:00 Singulair - PO 10 mg HS [facility] Administration Non-Formulary Medication 205.5 mcg 11/06/18 10:00 Azelastine Hcl [Azelastine Hcl] NS DAILY [facility] Phenol/Menthol 1 spray 11/05/18 09:58 Chloraseptic - MM Q6HPO PRN SORE THROAT Home Medications Medication Instructions Recorded Albuterol Sulfate Inhaler - 1 - 2 inh PO Q4H 11/05/18 [Ventolin Hfa Inhaler -] Budesonide/Formeterol Fumarate 1 inh PO BID 11/05/18 [SYMBICORT 160/4.5mcg -] Prednisone [Deltasone] 40 mg PO DAILY 11/05/18 ASSESSMENT AND PLAN: This is a 33 year old woman with a history of asthma, obesity who presented to the ED with shortness of breath, wheezing, sinus congestions. # Acute exacerbation of chronic persistent asthma: on SoluMedrol, Singulair, DuoNeb, continue , pulmonary consult , daily peak flow # Sepsis; due to possible URI/acute bronchitis; ceftriaxone, Zithromax given in ED, pending Blood cultures pending Cardio consult appreciated , as per cardio patient is not in CHF: s/p IV Lasix in ED, cardiology input appreciated, Echo is nl # Morbid obesity with BMI 41.0 DVT PX: SCDS, lovenox
[2018-11-06] MEDS: ALBUTEROL SO4 2.5/IPRATROPIUM 0.5 INH SOL 3 ML VIAL.NEB. NEB SCH ×4 (08:57→20:50)
[2018-11-06] MEDS: ENOXAPARIN NA (PORCINE) 40 MG/0.4 ML DISP.SYRIN SQ SCH (09:23)
[2018-11-06] MEDS: ACETAMINOPHEN 500 MG TABLET (FP) PO PRN ×2 (09:23→19:00)
[2018-11-06] MEDS ORDERED: PATIENT'S OWN MEDICATION (NON-FORMULARY) (Azelastine Hcl [Azelastine Hcl] 205.5 MCG) NS SCH (10:00)
--- NOTE | 2018-11-06 10:54 | PN ---
Progress Note (short form) - Note Progress Note: Breathing feels slightly better but still with significant wheezing. No CP. Sleep screen not completed yet. No hemoptysis. PEF: 280 Intake & Output 11/03/18 11/04/18 11/05/18 11/06/18 23:59 23:59 23:59 23:59 Intake Total 185 Balance 185 Weight 210 lb 206 lb 1 oz 209 lb Last Vital Signs Temp Pulse Resp BP Pulse Ox 98.3 F 100 H 20 126/70 95 11/06/18 05:54 11/06/18 05:54 11/06/18 05:54 11/06/18 05:54 11/06/18 05:00 Active Medications Acetaminophen (Tylenol -) 1,000 mg PO Q6H PRN PRN Reason: PAIN OR FEVER Last Admin: 11/06/18 09:23 Dose: 1,000 mg Albuterol/Ipratropium (Duoneb -) 1 amp NEB RQID [facility] Last Admin: 11/06/18 08:57 Dose: 1 amp Enoxaparin Sodium (Lovenox -) 40 mg SQ DAILY [facility] Last Admin: 11/06/18 09:23 Dose: 40 mg Methylprednisolone Sodium Succinate (Solu-Medrol -) 80 mg IVPUSH Q8H-IV [facility]IZ[facility]ETH Montelukast Sodium (Singulair -) 10 mg PO HS [facility] Last Admin: 11/05/18 22:00 Dose: 10 mg Non-Formulary Medication (Azelastine Hcl [Azelastine Hcl]) 205.5 mcg NS DAILY [facility] Phenol/Menthol (Chloraseptic -) 1 spray MM Q6HPO PRN PRN Reason: SORE THROAT Constitutional: Yes: Awake and alert, No Distress Eyes: Yes: Conjunctiva Clear, EOM Intact HENT: Yes: Atraumatic, Normocephalic Neck: Yes: Supple, Trachea Midline Cardiovascular: Yes: Regular Rate and Rhythm Respiratory: Yes: Cough, Diminished, Rhonchi, SOB on Exertion, Tachypnea, Wheezes. No: Accessory Muscle Use, Rales, Stridor ...Inspection: Yes: WNL ...Clubbing: No Gastrointestinal: Yes: Normal Bowel Sounds, Soft Renal/: Yes: WNL Musculoskeletal: Yes: WNL Extremities: Yes: WNL Edema: No Peripheral Pulses WNL: Yes Integumentary: Yes: WNL Neurological: Yes: WNL, Alert, Oriented ...Motor Strength: WNL Psychiatric: Yes: WNL, Alert, Oriented Labs: Laboratory Results - last 24 hr 11/05/18 11/05/18 16:30 16:30 Urine Color Yellow Urine Appearance Clear Urine pH 6.5 Ur Specific [place] 1.020 Urine Protein Trace Urine Glucose (UA) Negative Urine Ketones Negative Urine Blood Negative Urine Nitrite Negative Urine Bilirubin Negative Urine Urobilinogen 1.0 Ur Leukocyte Esterase Trace Urine WBC (Auto) 2 Urine RBC (Auto) 1 Urine Casts (Auto) 7 U Epithel Cells (Auto) 5.4 Urine Bacteria (Auto) 5.4 Influenza A (Rapid) Negative Influenza B (Rapid) Negative Problem List - Problems (1) URI (upper respiratory infection) Code(s): J06.9 - ACUTE UPPER RESPIRATORY INFECTION, UNSPECIFIED (2) Chronic asthma with acute exacerbation Code(s): J45.901 - UNSPECIFIED ASTHMA WITH (ACUTE) EXACERBATION Qualifiers: Asthma severity: severe Asthma persistence: persistent Qualified Code(s) : J45.51 - Severe persistent asthma with (acute) exacerbation (3) Obesity, Class III, BMI 40-49.9 (morbid obesity) Code(s): E66.01 - MORBID (SEVERE) OBESITY DUE TO EXCESS CALORIES (4) Bronchitis Code(s): J40 - BRONCHITIS, NOT SPECIFIED ACUTE OR CHRONIC Assessment/Plan Increase Medrol BD TX Singulair Sleep screen and will need formal workup after discharge O2 as needed No smoking PFTs after D/C Daily PEF Will need allergy evaluation after D/C as her asthma seems allergic based Dr Antonio Problem List - Problems (1) URI (upper respiratory infection) Code(s): J06.9 - ACUTE UPPER RESPIRATORY INFECTION, UNSPECIFIED (2) Chronic asthma with acute exacerbation Code(s): J45.901 - UNSPECIFIED ASTHMA WITH (ACUTE) EXACERBATION Qualifiers: Asthma severity: severe Asthma persistence: persistent Qualified Code(s) : J45.51 - Severe persistent asthma with (acute) exacerbation (3) Obesity, Class III, BMI 40-49.9 (morbid obesity) Code(s): E66.01 - MORBID (SEVERE) OBESITY DUE TO EXCESS CALORIES (4) Bronchitis Code(s): J40 - BRONCHITIS, NOT SPECIFIED ACUTE OR CHRONIC
--- NOTE | 2018-11-06 12:49 | PN ---
Physical Exam: SUBJECTIVE: Patient seen and examined a bedside this am. Coughing and wheezing. STAT duoneb treatment given. OBJECTIVE: Vital Signs Period Temp Pulse Resp BP Sys/Garcia Pulse Ox Last 24 Hr 97.6 F-98.7 F 100-106 16-20 124-128/70-81 94-95 GENERAL: NAD HEAD: Normal with no signs of trauma. EYES: EOMI Sclera Clear ENT: MMM NECK: Trachea midline, full range of motion, supple. LUNGS: Diffuse expiratory wheezing. HEART: RRR nl S1S2 ABDOMEN: NDNT No HSM EXTREMITIES: No CCE NEUROLOGICAL: Cranial nerves II through XII grossly intact. PSYCH: Normal mood, normal affect. SKIN: Warm, dry, normal turgor, no rashes or lesions noted Laboratory Results - last 24 hr 11/05/18 11/05/18 16:30 16:30 Urine Color Yellow Urine Appearance Clear Urine pH 6.5 Ur Specific [place] 1.020 Urine Protein Trace Urine Glucose (UA) Negative Urine Ketones Negative Urine Blood Negative Urine Nitrite Negative Urine Bilirubin Negative Urine Urobilinogen 1.0 Ur Leukocyte Esterase Trace Urine WBC (Auto) 2 Urine RBC (Auto) 1 Urine Casts (Auto) 7 U Epithel Cells (Auto) 5.4 Urine Bacteria (Auto) 5.4 Influenza A (Rapid) Negative Influenza B (Rapid) Negative Active Medications Generic Name Dose Route Start Last Admin Trade Name Freq PRN Reason Stop Dose Admin Acetaminophen 1,000 mg 11/05/18 08:55 11/06/18 09:23 Tylenol - PO 1,000 mg Q6H PRN Administration PAIN OR FEVER Albuterol/Ipratropium 1 amp 11/05/18 08:00 11/06/18 08:57 Duoneb - NEB 1 amp RQID ELIZABETH Administration Enoxaparin Sodium 40 mg 11/05/18 10:00 11/06/18 09:23 Lovenox - SQ 40 mg DAILY ELIZABETH Administration Methylprednisolone Sodium Succinate 80 mg 11/06/18 10:01 Solu-Medrol - IVPUSH Q8H-IV ELIZABETH Montelukast Sodium 10 mg 11/05/18 22:00 11/05/18 22:00 Singulair - PO 10 mg HS ELIZABETH Administration Non-Formulary Medication 205.5 mcg 11/06/18 10:00 Azelastine Hcl [Azelastine Hcl] NS DAILY ELIZABETH Phenol/Menthol 1 spray 11/05/18 09:58 Chloraseptic - MM Q6HPO PRN SORE THROAT ASSESSMENT/PLAN: 33 y.o. F w/ PMHx. of Asthma presents with shortness of breath, wheezing and and sinus congestions. # Chronic asthma with acute exacerbation/ r/o URI * Dr Antonio on board * Solumedrol 40mg IV Q6H INCREASED to 80 IV Q8H * Azithro and Ceftriaxone x1 given in ED. * Continue Singulair 10mg PO daily. . * Duonebs QID * Albuterol PRN. * Supplemental O2 PRN , Maintain SpO2 >90% * Urine Legionella/Strep Pneumo both Negative * Influenza negative * blood and sputum cultures both negative # Orthopnea * Dr Mcelroy on board * BNP 11 * CXR shows possible congestion * ECHO EF 70%, mild TR. Otherwise unremarkable * Lasix 40 IV given in ED * monitor output. FEN No Standing Fluids Monitor Electrolytes Regular Diet # DVT ppx Lovenox 40mg SQ daily Dispo: Med-Surg Visit type - Emergency Visit Emergency Visit: Yes ED Registration Date: 11/06/18 Care time: The patient presented to the Emergency Department on the above date and was hospitalized for further evaluation of their emergent condition. - New Patient This patient is new to me today: Yes Date on this admission: 11/06/18 - Critical Care Critical Care patient: No - Discharge Referral Referred to [facility] Med P.[facility] No
--- NOTE | 2018-11-06 16:51 | PN ---
Progress Note (short form) - Note Progress Note: s: no cp palps dizzy; still with mild sob o: Vital Signs Period Temp Pulse Resp BP Sys/Garcia Pulse Ox Last 24 Hr 97.5 F-98.7 F 100-106 16-20 117-126/64-81 94-95 Constitutional: Yes: Well Nourished, No Distress Eyes: No: Sclera Icterus Respiratory: Yes: bl wheeze, nl eff Gastrointestinal: Yes: Normal Bowel Sounds. No: Distention, Hepatomegaly, Palpable Mass, Tenderness Cardiovascular: Yes: Regular Rate and Rhythm JVD: No Heart Sounds: Yes: S1, S2. No: Gallop Murmur: No: Systolic Murmur, Diastolic Murmur Extremities: No: Cool, Cyanosis Edema: No Integumentary: No: Jaundice Neurological: Yes: Alert, Oriented (x3) Psychiatric: No: Agitated Current Medications Generic Name Dose Route Start Last Admin Trade Name Freq PRN Reason Stop Dose Admin Acetaminophen 1,000 mg 11/05/18 08:55 11/06/18 09:23 Tylenol - PO 1,000 mg Q6H PRN Administration PAIN OR FEVER Albuterol/Ipratropium 1 amp 11/05/18 08:00 11/06/18 16:17 Duoneb - NEB 1 amp RQID ELIZABETH Administration Enoxaparin Sodium 40 mg 11/05/18 10:00 11/06/18 09:23 Lovenox - SQ 40 mg DAILY ELIZABETH Administration Methylprednisolone Sodium Succinate 80 mg 11/06/18 10:01 Solu-Medrol - IVPUSH Q8H-IV ELIZABETH Montelukast Sodium 10 mg 11/05/18 22:00 11/05/18 22:00 Singulair - PO 10 mg HS ELIZABETH Administration Non-Formulary Medication 205.5 mcg 11/06/18 10:00 Azelastine Hcl [Azelastine Hcl] NS DAILY ELIZABETH Phenol/Menthol 1 spray 11/05/18 09:58 Chloraseptic - MM Q6HPO PRN SORE THROAT CBC, BMP 11/05/18 03:45 11/05/18 03:45 Assessment/Plan CXR: "new congestive changes with large heart and weak inspiration vs 2015" images reviewed: no effusions, no fluid in fissure, no pulm edema suspected, no vasc redistribution noted ECG x 2: sinus, no q's or ST-T abn echo 11/2018: nl lv/rv, mild tr SOB, a.e. asthma: -CXR not impressive for vasc congestion or other findings of heart failure on review, nor does heart look impressively enlargd. BNP 11. -phys exam appears euvolemic -echo unremarkable here -given lasix 40 IV x 1 in ER -do not think pt is in heart failure--defer further diuresis -asthma mgmt per pulm
[2018-11-06] MEDS: MONTELUKAST NA 10 MG TABLET PO SCH (21:35)
[2018-11-07] MEDS: methylPREDNISolone NA SUCC 40 MG/1 ML VIAL IVPUSH SCH ×4 (02:00→17:37)
[2018-11-07 07:06] LABS: HEMATOCRIT 39.2 % (32.4-45.2); HEMOGLOBIN 13.2 GM/dL (10.7-15.3); MCH 28.2 pg (25.7-33.7); MCHC 33.6 g/dl (32.0-36.0); MEAN CELL VOLUME 83.7 fl (80-96); MEAN PLT VOLUME 8.6 fl (7.5-11.1); PLATELET COUNT 261 K/MM3 (134-434); RBC 4.68 M/mm3 (3.60-5.2); RDW 13.5 % (11.6-15.6); WHITE BLOOD COUNT 10.2 K/mm3 (4.0-10.0)
[2018-11-07 07:43] LABS: ANION GAP 8 MMOL/L (8-16); BLOOD UREA NITROGEN 19 mg/dL (7-18); CALCIUM 8.7 mg/dL (8.5-10.1); CHLORIDE 106 mmol/L (98-107); CO2 24 mmol/L (21-32); CREATININE 0.6 mg/dL (0.55-1.3); GLUCOSE,RANDOM 152 mg/dL (74-106); PHOSPHOROUS 2.7 mg/dL (2.5-4.9); POTASSIUM 4.1 mmol/L (3.5-5.1); SODIUM 138 mmol/L (136-145)
[2018-11-07] MEDS: ALBUTEROL SO4 2.5/IPRATROPIUM 0.5 INH SOL 3 ML VIAL.NEB. NEB SCH ×4 (07:50→21:18)
[2018-11-07] MEDS: ENOXAPARIN NA (PORCINE) 40 MG/0.4 ML DISP.SYRIN SQ SCH ×2 (09:50→09:53)
--- NOTE | 2018-11-07 10:32 | PN ---
Physical Exam: SUBJECTIVE: Patient seen and examined at bedside. No acute events overnight. OBJECTIVE: Vital Signs Period Temp Pulse Resp BP Sys/Garcia Pulse Ox Last 24 Hr 97.5 F-98.6 F 100-103 16-20 117-134/64-77 94-97 GENERAL: NAD HEAD: Normal with no signs of trauma. EYES: EOMI Sclera Clear ENT: MMM NECK: Trachea midline, full range of motion, supple. LUNGS: Expiratory wheezing appreciated HEART: RRR nl S1S2 ABDOMEN: NDNT No HSM EXTREMITIES: No CCE NEUROLOGICAL: Cranial nerves II through XII grossly intact. PSYCH: Normal mood, normal affect. SKIN: Warm, dry, normal turgor, no rashes or lesions noted Laboratory Results - last 24 hr 11/07/18 11/07/18 05:30 05:30 WBC 10.2 H RBC 4.68 Hgb 13.2 Hct 39.2 MCV 83.7 MCH 28.2 MCHC 33.6 RDW 13.5 Plt Count 261 D MPV 8.6 Sodium 138 Potassium 4.1 Chloride 106 Carbon Dioxide 24 Anion Gap 8 BUN 19 H Creatinine 0.6 Creat Clearance w eGFR 113.77 Random Glucose 152 H Calcium 8.7 Phosphorus 2.7 Magnesium 2.0 Active Medications Generic Name Dose Route Start Last Admin Trade Name Freq PRN Reason Stop Dose Admin Acetaminophen 1,000 mg 11/05/18 08:55 11/06/18 19:00 Tylenol - PO 1,000 mg Q6H PRN Administration PAIN OR FEVER Albuterol/Ipratropium 1 amp 11/05/18 08:00 11/06/18 20:50 Duoneb - NEB 1 amp RQID ELIZABETH Administration Enoxaparin Sodium 40 mg 11/05/18 10:00 11/07/18 09:53 Lovenox - SQ Not Given DAILY ELIZABETH Methylprednisolone Sodium Succinate 80 mg 11/06/18 10:01 11/07/18 09:50 Solu-Medrol - IVPUSH 80 mg Q8H-IV ELIZABETH Administration Montelukast Sodium 10 mg 11/05/18 22:00 11/06/18 21:35 Singulair - PO 10 mg HS ELIZABETH Administration Phenol/Menthol 1 spray 11/05/18 09:58 Chloraseptic - MM Q6HPO PRN SORE THROAT ASSESSMENT/PLAN: 33 y.o. F w/ PMHx. of Asthma presents with shortness of breath, wheezing and and sinus congestions. # Chronic asthma with acute exacerbation/ r/o URI * Dr Antonio on board * Solumedrol 60 IV Q8H * Azithro and Ceftriaxone x1 given in ED. * Continue Singulair 10mg PO daily. . * Duonebs QID * Albuterol PRN. * Supplemental O2 PRN , Maintain SpO2 >90% * Urine Legionella/Strep Pneumo both Negative * Influenza negative * blood and sputum cultures both negative # Orthopnea * Dr Mcelroy on board * BNP 11 * CXR shows possible congestion * ECHO EF 70%, mild TR. Otherwise unremarkable * Lasix 40 IV given in ED * monitor output. FEN No Standing Fluids Monitor Electrolytes Regular Diet # DVT ppx Lovenox 40mg SQ daily Dispo: Med-Surg Visit type - Emergency Visit Emergency Visit: Yes ED Registration Date: 11/06/18 Care time: The patient presented to the Emergency Department on the above date and was hospitalized for further evaluation of their emergent condition. - New Patient This patient is new to me today: No - Critical Care Critical Care patient: No - Discharge Referral Referred to [facility] Med P.C.: No
[2018-11-07] MEDS ORDERED: DOCUSATE NA 100 MG/10 ML UNIT-DOSE CUPS PO PRN (10:44)
--- NOTE | 2018-11-07 11:05 | PN ---
Progress Note (short form) - Note Progress Note: s: no cp palps dizzy; sob improving o: Vital Signs Period Temp Pulse Resp BP Sys/Garcia Pulse Ox Last 24 Hr 97.5 F-98.6 F 100-103 16-20 117-134/64-77 94-97 Constitutional: Yes: Well Nourished, No Distress Eyes: No: Sclera Icterus Respiratory: Yes: bl wheeze, nl eff Gastrointestinal: Yes: Normal Bowel Sounds. No: Distention, Hepatomegaly, Palpable Mass, Tenderness Cardiovascular: Yes: Regular Rate and Rhythm JVD: No Heart Sounds: Yes: S1, S2. No: Gallop Murmur: No: Systolic Murmur, Diastolic Murmur Extremities: No: Cool, Cyanosis Edema: No Integumentary: No: Jaundice Neurological: Yes: Alert, Oriented (x3) Psychiatric: No: Agitated Current Medications Acetaminophen (Tylenol -) 1,000 mg PO Q6H PRN PRN Reason: PAIN OR FEVER Last Admin: 11/06/18 19:00 Dose: 1,000 mg Albuterol/Ipratropium (Duoneb -) 1 amp NEB RQID COUNTS INCLUDE 234 BEDS AT THE [facility] Last Admin: 11/06/18 20:50 Dose: 1 amp Docusate Sodium (Colace Liquid -) 100 mg PO DAILY PRN PRN Reason: CONSTIPATION Enoxaparin Sodium (Lovenox -) 40 mg SQ DAILY COUNTS INCLUDE 234 BEDS AT THE [facility] Last Admin: 11/07/18 09:53 Dose: Not Given Methylprednisolone Sodium Succinate (Solu-Medrol -) 80 mg IVPUSH Q8H-IV COUNTS INCLUDE 234 BEDS AT THE [facility] Last Admin: 11/07/18 09:50 Dose: 80 mg Montelukast Sodium (Singulair -) 10 mg PO HS COUNTS INCLUDE 234 BEDS AT THE [facility] Last Admin: 11/06/18 21:35 Dose: 10 mg Phenol/Menthol (Chloraseptic -) 1 spray MM Q6HPO PRN PRN Reason: SORE THROAT Assessment/Plan CXR: "new congestive changes with large heart and weak inspiration vs 2015" images reviewed: no effusions, no fluid in fissure, no pulm edema suspected, no vasc redistribution noted ECG x 2: sinus, no q's or ST-T abn echo 11/2018: nl lv/rv, mild tr SOB, a.e. asthma -CXR not impressive for vasc congestion or other findings of heart failure on review, nor does heart look impressively enlargd. BNP 11. -phys exam appears euvolemic -echo unremarkable here -given lasix 40 IV x 1 in ER -do not think pt is in heart failure--defer further diuresis -asthma mgmt per pulm
--- NOTE | 2018-11-07 13:54 | PN ---
Progress Note, Physician History of Present Illness: PULMONARY ALERT,LESS CONGESTED,LESS DYSPNEIC - Current Medication List Current Medications: Active Medications Acetaminophen (Tylenol -) 1,000 mg PO Q6H PRN PRN Reason: PAIN OR FEVER Last Admin: 11/06/18 19:00 Dose: 1,000 mg Albuterol/Ipratropium (Duoneb -) 1 amp NEB RQID [facility] Last Admin: 11/07/18 11:15 Dose: 1 amp Docusate Sodium (Colace Liquid -) 100 mg PO DAILY PRN PRN Reason: CONSTIPATION Last Admin: 11/07/18 11:25 Dose: 100 mg Enoxaparin Sodium (Lovenox -) 40 mg SQ DAILY [facility] Last Admin: 11/07/18 09:53 Dose: Not Given Methylprednisolone Sodium Succinate (Solu-Medrol -) 80 mg IVPUSH Q8H-IV [facility] Last Admin: 11/07/18 09:50 Dose: 80 mg Montelukast Sodium (Singulair -) 10 mg PO HS [facility] Last Admin: 11/06/18 21:35 Dose: 10 mg Phenol/Menthol (Chloraseptic -) 1 spray MM Q6HPO PRN PRN Reason: SORE THROAT - Objective Vital Signs: Vital Signs Temperature 98.0 F 11/07/18 09:12 Pulse Rate 103 H 11/07/18 09:12 Respiratory Rate 16 11/07/18 09:12 Blood Pressure 134/77 11/07/18 09:12 O2 Sat by Pulse Oximetry (%) 97 11/07/18 09:00 Constitutional: Yes: Well Nourished, Calm Eyes: Yes: WNL HENT: Yes: WNL Neck: Yes: WNL Cardiovascular: Yes: Regular Rate and Rhythm, S1, S2 Respiratory: Yes: Wheezes (ROSA WHEEZES) Gastrointestinal: Yes: Normal Bowel Sounds, Soft Extremities: Yes: WNL Edema: No Labs: CBC, BMP 11/07/18 05:30 11/07/18 05:30 Assessment/Plan Problem List - Problems (1) URI (upper respiratory infection) Code(s): J06.9 - ACUTE UPPER RESPIRATORY INFECTION, UNSPECIFIED (2) Chronic asthma with acute exacerbation Code(s): J45.901 - UNSPECIFIED ASTHMA WITH (ACUTE) EXACERBATION Qualifiers: Asthma severity: severe Asthma persistence: persistent Qualified Code(s) : J45.51 - Severe persistent asthma with (acute) exacerbation (3) Obesity, Class III, BMI 40-49.9 (morbid obesity) Code(s): E66.01 - MORBID (SEVERE) OBESITY DUE TO EXCESS CALORIES (4) Bronchitis Code(s): J40 - BRONCHITIS, NOT SPECIFIED ACUTE OR CHRONIC Assessment/Plan Medrol taper BD TX Singulair Sleep screen and will need formal workup after discharge O2 as needed No smoking PFTs after D/C Daily PEF Will need allergy evaluation after D/C as her asthma seems allergic based IGE level outpatient DR BRITTON
--- NOTE | 2018-11-07 15:40 | PN ---
Teaching Attending Note Name of Resident: Obi Molina ATTENDING PHYSICIAN STATEMENT I saw and evaluated the patient. I reviewed the resident's note and discussed the case with the resident. I agree with the resident's findings and plan as documented. SUBJECTIVE: No fever or chills . breathing is slightly better today. cont to have dry cough OBJECTIVE: NAD CV: RRR. Lungs: generalized wheezing, good air entry Ext : no edema or erythema ASSESSMENT AND PLAN: 33 y/o lady with h/o Asthma, who presented with SOB and cough and was found to have acute asthma exacerbation 1- Acute asthma exacerbation: sightly improved - steroids : now on 60 mg q 8hr - cont Albuterol nebs - add symbicort - cont singular - out pt allergy eval. DVT px
[2018-11-07] MEDS ORDERED: PT OWN MED DRAWER 7, Y5N ONE (21:35)
[2018-11-07] MEDS: MONTELUKAST NA 10 MG TABLET PO SCH (21:36)
[2018-11-07] MEDS: BUDESONIDE/FORMETEROL FUMARATE 160/4.5 mcg INHALER IH SCH (21:36)
[2018-11-08] MEDS: methylPREDNISolone NA SUCC 40 MG/1 ML VIAL IVPUSH SCH ×3 (02:31→17:34)
[2018-11-08] MEDS: ALBUTEROL SO4 2.5/IPRATROPIUM 0.5 INH SOL 3 ML VIAL.NEB. NEB SCH ×4 (07:50→22:00)
[2018-11-08 09:37] LABS: HEMATOCRIT 40.2 % (32.4-45.2); HEMOGLOBIN 13.7 GM/dL (10.7-15.3); MCH 28.2 pg (25.7-33.7); MCHC 34.2 g/dl (32.0-36.0); MEAN CELL VOLUME 82.6 fl (80-96); MEAN PLT VOLUME 8.2 fl (7.5-11.1); PLATELET COUNT 283 K/MM3 (134-434); RBC 4.86 M/mm3 (3.60-5.2); RDW 13.5 % (11.6-15.6); WHITE BLOOD COUNT 12.7 K/mm3 (4.0-10.0)
[2018-11-08 10:11] LABS: ANION GAP 9 MMOL/L (8-16); BLOOD UREA NITROGEN 17 mg/dL (7-18); CALCIUM 9.4 mg/dL (8.5-10.1); CHLORIDE 103 mmol/L (98-107); CO2 27 mmol/L (21-32); CREATININE 0.6 mg/dL (0.55-1.3); GLUCOSE,RANDOM 180 mg/dL (74-106); MAGNESIUM 2.1 mg/dL (1.8-2.4); SODIUM 138 mmol/L (136-145)
--- NOTE | 2018-11-08 10:30 | PN ---
Progress Note (short form) - Note Progress Note: Breathing feels slightly better but still with congested cough. Overall less wheezing. No CP. No hemoptysis. PEF: 260 Intake & Output 11/05/18 11/06/18 11/07/18 11/08/18 23:59 23:59 23:59 23:59 Intake Total 810 1510 200 Balance 810 1510 200 Weight 206 lb 1 oz 209 lb 210 lb 3 oz 208 lb 8 oz Last Vital Signs Temp Pulse Resp BP Pulse Ox 98.2 F 114 H 20 129/66 98 11/08/18 06:49 11/08/18 09:13 11/08/18 09:13 11/08/18 09:13 11/07/18 21:00 Active Medications Acetaminophen (Tylenol -) 1,000 mg PO Q6H PRN PRN Reason: PAIN OR FEVER Last Admin: 11/06/18 19:00 Dose: 1,000 mg Albuterol/Ipratropium (Duoneb -) 1 amp NEB RQID [facility] Last Admin: 11/07/18 21:18 Dose: 1 amp Budesonide/Formoterol Fumarate (Symbicort 160/4.5mcg -) 2 puff IH BID [facility] Last Admin: 11/07/18 21:36 Dose: 2 puff Docusate Sodium (Colace Liquid -) 100 mg PO DAILY PRN PRN Reason: CONSTIPATION Last Admin: 11/07/18 11:25 Dose: 100 mg Enoxaparin Sodium (Lovenox -) 40 mg SQ DAILY [facility] Last Admin: 11/07/18 09:53 Dose: Not Given Methylprednisolone Sodium Succinate (Solu-Medrol -) 60 mg IVPUSH Q8H-IV [facility] Last Admin: 11/08/18 02:31 Dose: 60 mg Montelukast Sodium (Singulair -) 10 mg PO HS [facility] Last Admin: 11/07/18 21:36 Dose: 10 mg Phenol/Menthol (Chloraseptic -) 1 spray MM Q6HPO PRN PRN Reason: SORE THROAT Constitutional: Yes: Awake and alert, No Distress Eyes: Yes: Conjunctiva Clear, EOM Intact HENT: Yes: Atraumatic, Normocephalic Neck: Yes: Supple, Trachea Midline Cardiovascular: Yes: Regular Rate and Rhythm Respiratory: Yes: Cough, Diminished, Rhonchi, Wheezes. No: Accessory Muscle Use , Rales, Stridor ...Inspection: Yes: WNL ...Clubbing: No Gastrointestinal: Yes: Normal Bowel Sounds, Soft Renal/: Yes: WNL Musculoskeletal: Yes: WNL Extremities: Yes: WNL Edema: No Peripheral Pulses WNL: Yes Integumentary: Yes: WNL Neurological: Yes: WNL, Alert, Oriented ...Motor Strength: WNL Psychiatric: Yes: WNL, Alert, Oriented Labs: Laboratory Results - last 24 hr 11/08/18 11/08/18 09:08 09:08 WBC 12.7 H RBC 4.86 Hgb 13.7 Hct 40.2 MCV 82.6 MCH 28.2 MCHC 34.2 RDW 13.5 Plt Count 283 MPV 8.2 Sodium 138 Potassium 4.0 Chloride 103 Carbon Dioxide 27 Anion Gap 9 BUN 17 Creatinine 0.6 Creat Clearance w eGFR 113.77 Random Glucose 180 H Calcium 9.4 Phosphorus 4.0 Magnesium 2.1 Problem List - Problems (1) URI (upper respiratory infection) Code(s): J06.9 - ACUTE UPPER RESPIRATORY INFECTION, UNSPECIFIED (2) Chronic asthma with acute exacerbation Code(s): J45.901 - UNSPECIFIED ASTHMA WITH (ACUTE) EXACERBATION Qualifiers: Asthma severity: severe Asthma persistence: persistent Qualified Code(s) : J45.51 - Severe persistent asthma with (acute) exacerbation (3) Obesity, Class III, BMI 40-49.9 (morbid obesity) Code(s): E66.01 - MORBID (SEVERE) OBESITY DUE TO EXCESS CALORIES (4) Bronchitis Code(s): J40 - BRONCHITIS, NOT SPECIFIED ACUTE OR CHRONIC Assessment/Plan Medrol at current dose BD TX Singulair Sleep screen and will need formal workup after discharge O2 as needed No smoking PFTs after D/C Daily PEF Will need allergy evaluation after D/C as her asthma seems allergic based Dr Antonio Problem List - Problems (1) URI (upper respiratory infection) Code(s): J06.9 - ACUTE UPPER RESPIRATORY INFECTION, UNSPECIFIED (2) Chronic asthma with acute exacerbation Code(s): J45.901 - UNSPECIFIED ASTHMA WITH (ACUTE) EXACERBATION Qualifiers: Asthma severity: severe Asthma persistence: persistent Qualified Code(s) : J45.51 - Severe persistent asthma with (acute) exacerbation (3) Obesity, Class III, BMI 40-49.9 (morbid obesity) Code(s): E66.01 - MORBID (SEVERE) OBESITY DUE TO EXCESS CALORIES (4) Bronchitis Code(s): J40 - BRONCHITIS, NOT SPECIFIED ACUTE OR CHRONIC
[2018-11-08] MEDS: ENOXAPARIN NA (PORCINE) 40 MG/0.4 ML DISP.SYRIN SQ SCH (10:51)
[2018-11-08] MEDS: BUDESONIDE/FORMETEROL FUMARATE 160/4.5 mcg INHALER IH SCH ×2 (10:51→22:16)
--- NOTE | 2018-11-08 12:26 | PN ---
Teaching Attending Note Name of Resident: Darrell Mckeon ATTENDING PHYSICIAN STATEMENT I saw and evaluated the patient. I reviewed the resident's note and discussed the case with the resident. I agree with the resident's findings and plan as documented. SUBJECTIVE: Still feels dyspneic, mostly on exertion and wheezy. No chest pain/ palps/productive cough. No fever/chills. OBJECTIVE: Afebrile, Hemodynamically Stable. Last Vital Signs Temp Pulse Resp BP Pulse Ox 98.2 F 114 H 20 129/66 98 11/08/18 06:49 11/08/18 09:13 11/08/18 09:13 11/08/18 09:13 11/08/18 09:00 HEENT -Atraumatic, Normocephalic. Heart - S1, S2, Tachy Lungs - bilateral polyphonic wheeze. Abdomen - Soft, non-tender. Bowel Sounds normal. Extremities - no edema, no calf tenderness Laboratory Results - last 24 hr 11/08/18 11/08/18 09:08 09:08 WBC 12.7 H RBC 4.86 Hgb 13.7 Hct 40.2 MCV 82.6 MCH 28.2 MCHC 34.2 RDW 13.5 Plt Count 283 MPV 8.2 Sodium 138 Potassium 4.0 Chloride 103 Carbon Dioxide 27 Anion Gap 9 BUN 17 Creatinine 0.6 Creat Clearance w eGFR 113.77 Random Glucose 180 H Calcium 9.4 Phosphorus 4.0 Magnesium 2.1 Current Medications Generic Name Dose Route Start Last Admin Trade Name Freq PRN Reason Stop Dose Admin Acetaminophen 1,000 mg 11/05/18 08:55 11/06/18 19:00 Tylenol - PO 1,000 mg Q6H PRN Administration PAIN OR FEVER Albuterol/Ipratropium 1 amp 11/05/18 08:00 11/08/18 07:50 Duoneb - NEB Not Given RQID ELIZABETH Budesonide/Formoterol Fumarate 2 puff 11/07/18 22:00 11/08/18 10:51 Symbicort 160/4.5mcg - IH 2 puff BID ELIZABETH Administration Docusate Sodium 100 mg 11/07/18 10:44 11/07/18 11:25 Colace Liquid - PO 100 mg DAILY PRN Administration CONSTIPATION Enoxaparin Sodium 40 mg 11/05/18 10:00 11/08/18 10:51 Lovenox - SQ 40 mg DAILY ELIZABETH Administration Methylprednisolone Sodium Succinate 60 mg 11/07/18 14:15 11/08/18 10:51 Solu-Medrol - IVPUSH 60 mg Q8H-IV ELIZABETH Administration Montelukast Sodium 10 mg 11/05/18 22:00 11/07/18 21:36 Singulair - PO 10 mg HS ELIZABETH Administration Phenol/Menthol 1 spray 11/05/18 09:58 Chloraseptic - MM Q6HPO PRN SORE THROAT ASSESSMENT AND PLAN: 33 year old female with history of Asthma, presented with SOB and dry cough. 1. Acute asthma exacerbation - ongoing dyspnea and wheeze. Continue IV Solumedrol, DoNebs, Singulair - needs another day at least of IV Steroid. Leukocytosis sec to Steroid. Continue Smbicort. Monitor Resp Status. BAM work-up, PSG/PFTs and Allergy testing as an out-patient. DVT Px - Lovenox SQ
--- NOTE | 2018-11-08 12:55 | PN ---
Physical Exam: SUBJECTIVE: Patient seen and examined at bedside. No acute events overnight. OBJECTIVE: Vital Signs Period Temp Pulse Resp BP Sys/Garcia Pulse Ox Last 24 Hr 98.2 F-99.0 F 101-114 20-20 120-133/66-87 98-98 GENERAL: No acute distress. AAOx3 HEAD: Normal with no signs of trauma. EYES: EOMI Sclera Clear ENT: MMM NECK: Trachea midline, full range of motion, supple. LUNGS: Diffuse expiratory wheezing HEART: RRR nl S1S2 ABDOMEN: NDNT No HSM EXTREMITIES: No CCE NEUROLOGICAL: Cranial nerves II through XII grossly intact. PSYCH: Normal mood, normal affect. SKIN: Warm, dry, normal turgor, no rashes or lesions noted Laboratory Results - last 24 hr 11/08/18 11/08/18 09:08 09:08 WBC 12.7 H RBC 4.86 Hgb 13.7 Hct 40.2 MCV 82.6 MCH 28.2 MCHC 34.2 RDW 13.5 Plt Count 283 MPV 8.2 Sodium 138 Potassium 4.0 Chloride 103 Carbon Dioxide 27 Anion Gap 9 BUN 17 Creatinine 0.6 Creat Clearance w eGFR 113.77 Random Glucose 180 H Calcium 9.4 Phosphorus 4.0 Magnesium 2.1 Active Medications Generic Name Dose Route Start Last Admin Trade Name Freq PRN Reason Stop Dose Admin Acetaminophen 1,000 mg 11/05/18 08:55 11/06/18 19:00 Tylenol - PO 1,000 mg Q6H PRN Administration PAIN OR FEVER Albuterol/Ipratropium 1 amp 11/05/18 08:00 11/08/18 12:10 Duoneb - NEB 1 amp RQID ELIZABETH Administration Budesonide/Formoterol Fumarate 2 puff 11/07/18 22:00 11/08/18 10:51 Symbicort 160/4.5mcg - IH 2 puff BID ELIZABETH Administration Docusate Sodium 100 mg 11/07/18 10:44 11/07/18 11:25 Colace Liquid - PO 100 mg DAILY PRN Administration CONSTIPATION Enoxaparin Sodium 40 mg 11/05/18 10:00 11/08/18 10:51 Lovenox - SQ 40 mg DAILY ELIZABETH Administration Methylprednisolone Sodium Succinate 60 mg 11/07/18 14:15 11/08/18 10:51 Solu-Medrol - IVPUSH 60 mg Q8H-IV ELIZABETH Administration Montelukast Sodium 10 mg 11/05/18 22:00 11/07/18 21:36 Singulair - PO 10 mg HS ELIZABETH Administration Phenol/Menthol 1 spray 11/05/18 09:58 Chloraseptic - MM Q6HPO PRN SORE THROAT ASSESSMENT/PLAN: 33 y.o. F w/ PMHx. of Asthma presents with shortness of breath, wheezing and and sinus congestions. # Chronic asthma with acute exacerbation * Dr Antonio on board * Solumedrol 60 IV Q8H * Azithro and Ceftriaxone x1 given in ED. * Continue Singulair 10mg PO daily. . * Duonebs QID * Albuterol PRN. * Supplemental O2 PRN , Maintain SpO2 >90% * Urine Legionella/Strep Pneumo both Negative * Influenza negative * blood and sputum cultures both negative * Reccomend outpatient sleep study. possible. Discussion of possible Xolair as outpatient per pulm # Orthopnea * Dr Mcelroy on board * BNP 11 * CXR shows possible congestion * ECHO EF 70%, mild TR. Otherwise unremarkable * Lasix 40 IV given in ED * monitor output. FEN No Standing Fluids Monitor Electrolytes Regular Diet # DVT ppx Lovenox 40mg SQ daily Dispo: Med-Surg Visit type - Emergency Visit Emergency Visit: Yes ED Registration Date: 11/06/18 Care time: The patient presented to the Emergency Department on the above date and was hospitalized for further evaluation of their emergent condition. - New Patient This patient is new to me today: No - Critical Care Critical Care patient: No - Discharge Referral Referred to [facility] Med P.C[facility] No
[2018-11-08] MEDS: MONTELUKAST NA 10 MG TABLET PO SCH (22:16)
[2018-11-08 23:16] VITALS: BMI 40.6
[2018-11-09] MEDS: methylPREDNISolone NA SUCC 40 MG/1 ML VIAL IVPUSH SCH ×3 (01:53→18:44)
[2018-11-09] MEDS: ALBUTEROL SO4 2.5/IPRATROPIUM 0.5 INH SOL 3 ML VIAL.NEB. NEB SCH ×4 (07:40→20:27)
[2018-11-09 08:22] LABS: HEMATOCRIT 39.7 % (32.4-45.2); HEMOGLOBIN 13.3 GM/dL (10.7-15.3); MCH 27.7 pg (25.7-33.7); MCHC 33.5 g/dl (32.0-36.0); MEAN CELL VOLUME 82.7 fl (80-96); MEAN PLT VOLUME 8.2 fl (7.5-11.1); PLATELET COUNT 276 K/MM3 (134-434); RDW 13.5 % (11.6-15.6); WHITE BLOOD COUNT 11.7 K/mm3 (4.0-10.0)
[2018-11-09 08:39] LABS: ANION GAP 10 MMOL/L (8-16); BLOOD UREA NITROGEN 20 mg/dL (7-18); CALCIUM 9.1 mg/dL (8.5-10.1); CHLORIDE 102 mmol/L (98-107); CO2 27 mmol/L (21-32); CREATININE 0.6 mg/dL (0.55-1.3); GLUCOSE,RANDOM 117 mg/dL (74-106); MAGNESIUM 2.3 mg/dL (1.8-2.4); POTASSIUM 4.4 mmol/L (3.5-5.1); SODIUM 139 mmol/L (136-145)
[2018-11-09] MEDS: ENOXAPARIN NA (PORCINE) 40 MG/0.4 ML DISP.SYRIN SQ SCH (09:39)
[2018-11-09] MEDS: BUDESONIDE/FORMETEROL FUMARATE 160/4.5 mcg INHALER IH SCH ×2 (09:40→21:20)
--- NOTE | 2018-11-09 10:11 | PN ---
Physical Exam: SUBJECTIVE: Patient seen and examined at bedside. No acute events overnight. Had sleep study done overnight. OBJECTIVE: Vital Signs Period Temp Pulse Resp BP Sys/Garcia Pulse Ox Last 24 Hr 98.3 F-99.2 F 79-93 20-20 100-131/55-80 98 GENERAL: NAD resting in bed comfortably HEAD: Normal with no signs of trauma. EYES: EOMI Sclera Clear ENT: MMM NECK: Trachea midline, full range of motion, supple. LUNGS: Diffuse expiratory wheezing persists HEART: RRR nl S1S2 ABDOMEN: NDNT No HSM EXTREMITIES: No CCE NEUROLOGICAL: Cranial nerves II through XII grossly intact. PSYCH: Normal mood, normal affect. SKIN: Warm, dry, normal turgor, no rashes or lesions noted Laboratory Results - last 24 hr 11/08/18 11/09/18 11/09/18 09:08 06:25 06:25 WBC 11.7 H RBC 4.80 Hgb 13.3 Hct 39.7 MCV 82.7 MCH 27.7 MCHC 33.5 RDW 13.5 Plt Count 276 MPV 8.2 Sodium 138 139 Potassium 4.0 4.4 Chloride 103 102 Carbon Dioxide 27 27 Anion Gap 9 10 BUN 17 20 H Creatinine 0.6 0.6 Creat Clearance w eGFR 113.77 113.77 Random Glucose 180 H 117 H Calcium 9.4 9.1 Phosphorus 4.0 Magnesium 2.1 2.3 Active Medications Generic Name Dose Route Start Last Admin Trade Name Freq PRN Reason Stop Dose Admin Acetaminophen 1,000 mg 11/05/18 08:55 11/06/18 19:00 Tylenol - PO 1,000 mg Q6H PRN Administration PAIN OR FEVER Albuterol/Ipratropium 1 amp 11/05/18 08:00 11/09/18 07:40 Duoneb - NEB 1 amp RQID ELIZABETH Administration Budesonide/Formoterol Fumarate 2 puff 11/07/18 22:00 11/09/18 09:40 Symbicort 160/4.5mcg - IH 2 puff BID ELIZABETH Administration Docusate Sodium 100 mg 11/07/18 10:44 11/07/18 11:25 Colace Liquid - PO 100 mg DAILY PRN Administration CONSTIPATION Enoxaparin Sodium 40 mg 11/05/18 10:00 11/09/18 09:39 Lovenox - SQ 40 mg DAILY ELIZABETH Administration Methylprednisolone Sodium Succinate 60 mg 11/07/18 14:15 11/09/18 09:39 Solu-Medrol - IVPUSH 60 mg Q8H-IV ELIZABETH Administration Montelukast Sodium 10 mg 11/05/18 22:00 11/08/18 22:16 Singulair - PO 10 mg HS ELIZABETH Administration Phenol/Menthol 1 spray 11/05/18 09:58 Chloraseptic - MM Q6HPO PRN SORE THROAT ASSESSMENT/PLAN: 33 y.o. F w/ PMHx. of Asthma presents with shortness of breath, wheezing and and sinus congestions. # Chronic asthma with acute exacerbation * Dr Antonio on board * Solumedrol 60 IV Q8H DECREASED to 40 IV Q8H * Azithro and Ceftriaxone x1 given in ED. * Continue Singulair 10mg PO daily. * Symbicort Ih 2 puffs Daily * Duonebs QID * Albuterol PRN. * Supplemental O2 PRN , Maintain SpO2 >90% * Urine Legionella/Strep Pneumo both Negative * Influenza negative * blood and sputum cultures both negative * Per Pulm--> Will need allergy evaluation after D/C as her asthma seems allergic based FEN No Standing Fluids Monitor Electrolytes Regular Diet # DVT ppx Lovenox 40mg SQ daily Visit type - Emergency Visit Emergency Visit: Yes ED Registration Date: 11/06/18 Care time: The patient presented to the Emergency Department on the above date and was hospitalized for further evaluation of their emergent condition. - New Patient This patient is new to me today: No - Critical Care Critical Care patient: No - Discharge Referral Referred to [facility] Med P.C.: No
--- NOTE | 2018-11-09 16:40 | PN ---
Progress Note, Physician History of Present Illness: PULMONARY ALERT,FEELING BETTER,LESS DYSPNEIC,PEAK FLOW 250-300 - Current Medication List Current Medications: Active Medications Acetaminophen (Tylenol -) 1,000 mg PO Q6H PRN PRN Reason: PAIN OR FEVER Last Admin: 11/06/18 19:00 Dose: 1,000 mg Albuterol/Ipratropium (Duoneb -) 1 amp NEB RQID [facility] Last Admin: 11/09/18 11:34 Dose: 1 amp Budesonide/Formoterol Fumarate (Symbicort 160/4.5mcg -) 2 puff IH BID [facility] Last Admin: 11/09/18 09:40 Dose: 2 puff Docusate Sodium (Colace Liquid -) 100 mg PO DAILY PRN PRN Reason: CONSTIPATION Last Admin: 11/07/18 11:25 Dose: 100 mg Enoxaparin Sodium (Lovenox -) 40 mg SQ DAILY [facility] Last Admin: 11/09/18 09:39 Dose: 40 mg Methylprednisolone Sodium Succinate (Solu-Medrol -) 60 mg IVPUSH Q8H-IV [facility] Last Admin: 11/09/18 09:39 Dose: 60 mg Montelukast Sodium (Singulair -) 10 mg PO HS [facility] Last Admin: 11/08/18 22:16 Dose: 10 mg Phenol/Menthol (Chloraseptic -) 1 spray MM Q6HPO PRN PRN Reason: SORE THROAT - Objective Vital Signs: Vital Signs Temperature 98.2 F 11/09/18 15:25 Pulse Rate 87 11/09/18 15:25 Respiratory Rate 20 11/09/18 09:00 Blood Pressure 125/77 11/09/18 15:25 O2 Sat by Pulse Oximetry (%) 97 11/09/18 09:00 Constitutional: Yes: Well Nourished, Calm Eyes: Yes: WNL HENT: Yes: WNL Neck: Yes: WNL Cardiovascular: Yes: Tachycardia, S1, S2 Respiratory: Yes: Wheezes (SCATTERED ROSA WHEEZES) Gastrointestinal: Yes: Normal Bowel Sounds, Soft Extremities: Yes: WNL Edema: No Labs: CBC, BMP 11/09/18 06:25 11/09/18 06:25 Assessment/Plan Problem List - Problems (1) URI (upper respiratory infection) Code(s): J06.9 - ACUTE UPPER RESPIRATORY INFECTION, UNSPECIFIED (2) Chronic asthma with acute exacerbation Code(s): J45.901 - UNSPECIFIED ASTHMA WITH (ACUTE) EXACERBATION Qualifiers: Asthma severity: severe Asthma persistence: persistent Qualified Code(s) : J45.51 - Severe persistent asthma with (acute) exacerbation (3) Obesity, Class III, BMI 40-49.9 (morbid obesity) Code(s): E66.01 - MORBID (SEVERE) OBESITY DUE TO EXCESS CALORIES (4) Bronchitis Code(s): J40 - BRONCHITIS, NOT SPECIFIED ACUTE OR CHRONIC Assessment/Plan Medrol taper BD TX Singulair Sleep screen and will need formal workup after discharge O2 as needed No smoking PFTs after D/C Daily PEF Will need allergy evaluation after D/C as her asthma seems allergic based IGE level outpatient DR BRITTON
--- NOTE | 2018-11-09 19:00 | PN ---
Teaching Attending Note Name of Resident: Obi Molina ATTENDING PHYSICIAN STATEMENT I saw and evaluated the patient. I reviewed the resident's note and discussed the case with the resident. I agree with the resident's findings and plan as documented. SUBJECTIVE: No fever or chills. breathing is better OBJECTIVE: NAD CV: RRR. Lungs: scattered wheezing. good air entry Ext : no edema or erythema ASSESSMENT AND PLAN: 33 y/o lady with h/o Asthma, who presented with SOB and cough and was found to have acute asthma exacerbation 1- Acute asthma exacerbation:cont to improve - steroids taper - cont Albuterol nebs - cont symbicort - cont singular - out pt allergy eval and PFTs - check pre-post DVT px . ? switch to po steroids and dc tomorrow.
[2018-11-09] MEDS: MONTELUKAST NA 10 MG TABLET PO SCH (21:20)
[2018-11-10] MEDS: methylPREDNISolone NA SUCC 40 MG/1 ML VIAL IVPUSH SCH ×2 (01:30→09:00)
[2018-11-10 07:57] VITALS: BP 143/95; PULSE 75; TEMP 98.2
[2018-11-10 08:22] LABS: ANION GAP 7 MMOL/L (8-16); BLOOD UREA NITROGEN 21 mg/dL (7-18); CALCIUM 8.5 mg/dL (8.5-10.1); CHLORIDE 102 mmol/L (98-107); CO2 28 mmol/L (21-32); CREATININE 0.7 mg/dL (0.55-1.3); GLUCOSE,RANDOM 114 mg/dL (74-106); MAGNESIUM 2.3 mg/dL (1.8-2.4); POTASSIUM 4.4 mmol/L (3.5-5.1); SODIUM 138 mmol/L (136-145)
[2018-11-10 08:26] LABS: HEMATOCRIT 40.4 % (32.4-45.2); HEMOGLOBIN 13.4 GM/dL (10.7-15.3); MCH 27.7 pg (25.7-33.7); MCHC 33.3 g/dl (32.0-36.0); MEAN CELL VOLUME 83.2 fl (80-96); MEAN PLT VOLUME 8.1 fl (7.5-11.1); PLATELET COUNT 285 K/MM3 (134-434); RBC 4.85 M/mm3 (3.60-5.2); RDW 13.4 % (11.6-15.6); WHITE BLOOD COUNT 13.3 K/mm3 (4.0-10.0)
[2018-11-10] MEDS: ALBUTEROL SO4 2.5/IPRATROPIUM 0.5 INH SOL 3 ML VIAL.NEB. NEB SCH (08:30)
[2018-11-10] MEDS: BUDESONIDE/FORMETEROL FUMARATE 160/4.5 mcg INHALER IH SCH ×2 (08:59→10:19)
[2018-11-10] MEDS: ENOXAPARIN NA (PORCINE) 40 MG/0.4 ML DISP.SYRIN SQ SCH ×2 (09:00→10:16)
--- NOTE | 2018-11-10 09:55 | PN ---
Teaching Attending Note Name of Resident: Obi Molina ATTENDING PHYSICIAN STATEMENT I saw and evaluated the patient. I reviewed the resident's note and discussed the case with the resident. I agree with the resident's findings and plan as documented. SUBJECTIVE: No fever or chills . SOB is better. her IV line hurts but she refused its change . OBJECTIVE: NAD CV: RRR. Lungs: minimal scattered wheezing. good air entry Ext: no edema or erythema. ASSESSMENT AND PLAN: 33 y/o lady with h/o Asthma, who presented with SOB and cough and was found to have acute asthma exacerbation 1- Acute asthma exacerbation: much improved - steroids taper to be switched to po prednisone - cont Albuterol nebs . will prescribe nebulizer machine and medicine at dc - cont symbicort at dc - cont singular - did not require O2 with ambulation - out pt allergy eval and PFTs dispo : DC home today. d/w Pulm by team
--- NOTE | 2018-11-10 10:09 | DS ---
Physical Exam: SUBJECTIVE: Patient seen and examined OBJECTIVE: Vital Signs Period Temp Pulse Resp BP Sys/Garcia Pulse Ox Last 24 Hr 98.2 F-98.7 F 75-113 15-20 125-143/77-95 98-98 PHYSICAL EXAM GENERAL: The patient is awake, alert, and fully oriented, in no acute distress. HEAD: Normal with no signs of trauma. EYES: PERRL, extraocular movements intact, sclera anicteric, conjunctiva clear. ENT: Ears normal, nares patent, oropharynx clear without exudates, moist mucous membranes. NECK: Trachea midline, full range of motion, supple. LUNGS: Breath sounds equal, clear to auscultation bilaterally, no wheezes, no crackles, no accessory muscle use. HEART: Regular rate and rhythm, S1, S2 without murmur, rub or gallop. ABDOMEN: Soft, nontender, nondistended, normoactive bowel sounds, no guarding, no rebound, no hepatosplenomegaly, no masses. EXTREMITIES: 2+ pulses, warm, well-perfused, no edema. NEUROLOGICAL: Cranial nerves II through XII grossly intact. Normal speech, gait not observed. PSYCH: Normal mood, normal affect. SKIN: Warm, dry, normal turgor, no rashes or lesions noted. LABS Laboratory Results - last 24 hr 11/10/18 11/10/18 07:00 07:00 WBC 13.3 H RBC 4.85 Hgb 13.4 Hct 40.4 MCV 83.2 MCH 27.7 MCHC 33.3 RDW 13.4 Plt Count 285 MPV 8.1 Sodium 138 Potassium 4.4 Chloride 102 Carbon Dioxide 28 Anion Gap 7 L BUN 21 H Creatinine 0.7 Creat Clearance w eGFR 95.23 Random Glucose 114 H Calcium 8.5 Phosphorus 4.0 Magnesium 2.3 HOSPITAL COURSE: Date of Admission:11/06/18 Date of Discharge: 11/10/18 Discharge Summary Reason For Visit: PNEUMONIA EXACERBATION OF ASHMA Current Active Problems Asthma attack (Acute) DVT prophylaxis (Acute) Chronic asthma with acute exacerbation (Chronic) Obesity, Class III, BMI 40-49.9 (morbid obesity) (Chronic) Condition: Improved - Instructions Diet, Activity, Other Instructions: You were seen here for your asthma exacerbation. You were treated with steroids and improved. You were seen by our pulmonologists during your stay here. and were recommended to have a sleep study screen and an allergy testing screen. MEDICATIONS: You will be sent home with a steroid taper by mouth to take. Please follow the instructions with the medication as stopping steroids abruptly can cause adverse effects Please continue taking your Singulair 10 NIGHTLY Please continue with your Symbicort TWICE DAILY Follow-up: Please follow-up with your primary care physician Dr. Salgado. If you would prefer another primary care physician please follow-up with Dr. Molina [phone] in 1 week Please follow-up with our pulmonologists who saw you here (Dr. Antonio). His information was provided in the discharge packet for you in 1 week Referrals: Gela Salgado [Other] Griffin Antonio MD [Staff Physician] - 1 Week Andreas Madera MD [Staff Physician] - (Dr. Molina) Disposition: HOME - Home Medications Comprehensive Discharge Medication List: Ambulatory Orders Albuterol 0.083% Nebulizer Gwendolyn [Ventolin 0.083% Nebulizer Soln -] 1 amp NEB Q4H PRN #30 neb 11/10/18 Albuterol Sulfate Inhaler - [Ventolin HFA Inhaler -] 1 - 2 inh PO Q4H PRN #1 inhaler 11/10/18 Budesonide/Formeterol Fumarate [SYMBICORT 160/4.5mcg -] 1 inh IH BID #1 inhaler 11/10/18 Montelukast Sodium [Singulair] 10 mg PO HS #30 tablet 11/10/18 Nebulizer [Compact Compressor Nebulizer] 1 each MC Q4H PRN #1 each 11/10/18 Prednisone [Deltasone] See Taper PO DAILY #20 tablet 11/10/18 - Discharge Referral Referred to [facility] No
[2018-11-10] MEDS ORDERED: PT OWN MED DRAWER 7, Y5N ONE ×2 (10:18→12:16)
[2018-11-10] MEDS: ACETAMINOPHEN 500 MG TABLET (FP) PO PRN (10:19)
== END 2018-11-10 13:11 | disposition home or self-care (01) | DRG 141 ==
LOC: JER 23:02 → JERBED 11-05 04:11 → J6S 11-05 19:02 → OBSVTOIN 11-06 10:36
PROVIDERS: ADMIT Internal Medicine; ATTEND Internal Medicine
DX: J45.51 Severe persistent asthma with (acute) exacerbation (principal); E66.01 Morbid (severe) obesity due to excess calories; Z68.41 Body mass index [BMI] 40.0-44.9, adult; J06.9 Acute upper respiratory infection, unspecified; J40 Bronchitis, not specified as acute or chronic; D72.829 Elevated white blood cell count, unspecified
CPT/HCPCS: 36415; 71046-TC-FY; 80048; 80053; 81003; 83605; 83735; 83880; 84100; 84484; 84703; 85025; 85027; 87040; 87070; 87205; 87804; 87899; 93005; 93010; 93306-TC; 94150; 94640; 94761; 99283-25; G0378

== ENCOUNTER 2019-03-13 14:10 | Inpatient (IN) | payer OTHER | END 2019-03-14 19:11 | disposition home or self-care (01) | LOC: J7W 03-14 02:28 → JERFT 14:10 → JERBED 20:38 ==

== ENCOUNTER 2020-08-23 21:52 | Emergency (ER) | payer OTHER ==
[2020-08-23 22:03] VITALS: BP 136/64; PULSE 93; TEMP 98.2; BMI 41.0
== END 2020-08-24 00:52 | disposition home or self-care (01) ==
LOC: JER 21:52
DX: R22.42 Localized swelling, mass and lump, left lower limb (principal)
CPT/HCPCS: 73610-TC-LT-FY; 73630-TC-LT; 99283-25

== ENCOUNTER 2020-09-29 22:54 | Inpatient (IN) | payer OTHER ==
[2020-09-29 23:13] VITALS: BMI 42.7
[2020-09-30] MEDS ORDERED: ALBUTEROL SO4 2.5/IPRATROPIUM 0.5 INH SOL 3 ML VIAL.NEB. NEB ONE ×3 (00:07→11:55)
[2020-09-30] MEDS: ALBUTEROL SO4 2.5/IPRATROPIUM 0.5 INH SOL 3 ML VIAL.NEB. NEB SCH ×4 (00:19→12:03)
[2020-09-30] MEDS ORDERED: predniSONE 20 MG TABLET (UD) PO ONE (01:14)
[2020-09-30] MEDS ORDERED: methylPREDNISolone NA SUCC 125 MG/2 ML VIAL IVPUSH ONE (01:16)
[2020-09-30 01:18] LABS: BASO % 0.5 % (0-2.0); EOS % 8.9 % (0-4.5); HEMATOCRIT 38.1 % (32.4-45.2); LYMPH % 26.7 % (8-40); MCH 28.1 pg (25.7-33.7); MCHC 34.1 g/dl (32.0-36.0); MEAN CELL VOLUME 82.5 fl (80-96); MEAN PLT VOLUME 8.1 fl (7.5-11.1); MONO % 7.9 % (3.8-10.2); PLATELET COUNT 251 K/MM3 (134-434); RBC 4.62 M/mm3 (3.60-5.2); RDW 12.9 % (11.6-15.6); WHITE BLOOD COUNT 7.8 K/mm3 (4.0-10.0)
[2020-09-30 01:35] LABS: CHLORIDE 108 mmol/L (98-107); SODIUM 142 mmol/L (136-145)
[2020-09-30 01:37] LABS: CALCIUM 8.8 mg/dL (8.5-10.1)
[2020-09-30 01:38] LABS: ALBUMIN 3.7 g/dl (3.4-5.0); ANION GAP 8 MMOL/L (8-16); BLOOD UREA NITROGEN 23.2 mg/dL (7-18); CO2 27 mmol/L (21-32); GLUCOSE,RANDOM 94 mg/dL (74-106)
[2020-09-30 01:41] LABS: CREATININE 0.6 mg/dL (0.55-1.3); SGOT/AST 15 U/L (15-37); SGPT/ALT 24 U/L (13-61)
[2020-09-30 01:42] LABS: BILIRUBIN,TOTAL 0.4 mg/dL (0.2-1)
[2020-09-30 01:44] LABS: ALK PHOS 45 U/L (45-117)
[2020-09-30] MEDS ORDERED: diphenhydrAMINE HCL 25 MG CAPSULE (FP) PO ONE (01:45)
[2020-09-30] MEDS ORDERED: MAGNESIUM SULF 50% (8.12 MEQ/2 ML-1 GM VIAL) IVPB ONE (01:46)
[2020-09-30] MEDS ORDERED: methylPREDNISolone NA SUCC 125 MG/2 ML VIAL ONE (01:55)
[2020-09-30] MEDS ORDERED: MAGNESIUM SULFATE IN WATER 2 GM/50 ML IVPB IVPB ONE (01:55)
[2020-09-30] MEDS ORDERED: ALBUTEROL SO4 0.083% IH SOL 2.5 MG/3 ML VIAL.NEB. NEB ONE ×2 (01:58→03:29)
[2020-09-30 02:14] LABS: URINE APPEARANCE CLEAR; URINE BILIRUBIN NEGATIVE (NEGATIVE); URINE COLOR YELLOW; URINE GLUCOSE (UA) NEGATIVE (NEGATIVE); URINE KETONE NEGATIVE (NEGATIVE); URINE LEUK ESTERASE NEGATIVE (NEGATIVE); URINE NITRITE NEGATIVE (NEGATIVE); URINE PROTEIN NEGATIVE (NEGATIVE)
[2020-09-30 02:17] LABS: EPI CELLS 11 /uL (0-25.1); HYALINE CASTS 0 /uL (0-3.1); URINE BACTERIA 491 /uL (0-1359); URINE RBC 7 /uL (0-23.9); URINE WBC 10 /uL (0-25.8)
[2020-09-30 07:51] LABS: HEMATOCRIT 37.7 % (32.4-45.2); HEMOGLOBIN 12.9 GM/dL (10.7-15.3); MCH 28.8 pg (25.7-33.7); MCHC 34.3 g/dl (32.0-36.0); MEAN CELL VOLUME 83.9 fl (80-96); MEAN PLT VOLUME 8.5 fl (7.5-11.1); PLATELET COUNT 253 K/MM3 (134-434); RBC 4.49 M/mm3 (3.60-5.2); RDW 12.8 % (11.6-15.6)
[2020-09-30] MEDS ORDERED: ALBUTEROL SO4 2.5/IPRATROPIUM 0.5 INH SOL 3 ML VIAL.NEB. NEB SCH (08:00)
[2020-09-30] MEDS ORDERED: methylPREDNISolone NA SUCC 40 MG/1 ML VIAL IVPUSH SCH (10:00)
[2020-09-30] MEDS ORDERED: ENOXAPARIN NA (PORCINE) 40 MG/0.4 ML DISP.SYRIN SQ SCH (10:15)
[2020-09-30] MEDS ORDERED: ENOXAPARIN NA (PORCINE) 40 MG/0.4 ML DISP.SYRIN SQ ONE (10:29)
[2020-09-30] MEDS ORDERED: methylPREDNISolone NA SUCC 40 MG/1 ML VIAL ONE ×2 (10:29)
[2020-09-30] MEDS ORDERED: LORATADINE 10 MG TABLET PO ONE (10:34)
[2020-09-30] MEDS ORDERED: ACETAMINOPHEN 325 MG TABLET (FP) PO PRN (10:35)
[2020-09-30] MEDS ORDERED: ACETAMINOPHEN 325 MG TABLET (FP) ONE (10:51)
[2020-09-30] MEDS ORDERED: LORATADINE 10 MG TABLET ONE (10:51)
[2020-09-30 12:05] VITALS: TEMP 99
[2020-09-30 15:37] VITALS: BP 118/86; PULSE 109
== END 2020-09-30 16:00 | disposition home or self-care (01) | DRG 141 ==
LOC: JER 22:54 → JERBED 09-30 02:27
PROVIDERS: ADMIT Hospitalist; ATTEND Internal Medicine
DX: J45.51 Severe persistent asthma with (acute) exacerbation (principal); R21 Rash and other nonspecific skin eruption; R51.9 Headache, unspecified; G47.30 Sleep apnea, unspecified; D72.10 Eosinophilia, unspecified
CPT/HCPCS: 36415; 71045-TC-FY; 80053; 81003; 82550; 83735; 84484; 84703; 85025; 85027; 85379; 87077; 87086; 93005; 93010; 99285-25; C9803; U0003

== ENCOUNTER 2020-11-20 21:40 | Emergency (ER) | payer OTHER ==
[2020-11-20 21:43] VITALS: TEMP 98; BMI 42.7
[2020-11-20] MEDS ORDERED: MAGNESIUM SULF 50% (8.12 MEQ/2 ML-1 GM VIAL) IVPB ONE ×2 (22:02→22:06)
[2020-11-20] MEDS ORDERED: DEXAMETHASONE SOD PHOSPHATE 10 MG/1 ML VIAL IVPUSH ONE (22:08)
[2020-11-20] MEDS ORDERED: ALBUTEROL SO4 2.5/IPRATROPIUM 0.5 INH SOL 3 ML VIAL.NEB. NEB ONE (22:08)
[2020-11-20] MEDS ORDERED: MAGNESIUM SULFATE IN WATER 2 GM/50 ML IVPB IVPB ONE (22:11)
[2020-11-20] MEDS ORDERED: DEXAMETHASONE SOD PHOSPHATE 10 MG/1 ML VIAL ONE (22:11)
[2020-11-20 22:39] LABS: VENOUS BASE EXCESS 1.8 mmol/L (-2-2); VENOUS O2 SATURATION 42.2 % (70-80); VENOUS PCO2 56.5 mmHg (38-52); VENOUS PH 7.329 (7.310-7.410)
[2020-11-20 22:40] LABS: BASO % 0.4 % (0-2.0); EOS % 4.7 % (0-4.5); HEMATOCRIT 39.4 % (32.4-45.2); HEMOGLOBIN 13.4 GM/dL (10.7-15.3); LYMPH % 24.4 % (8-40); MCH 28.4 pg (25.7-33.7); MCHC 34.1 g/dl (32.0-36.0); MEAN CELL VOLUME 83.4 fl (80-96); MEAN PLT VOLUME 8.2 fl (7.5-11.1); MONO % 5.7 % (3.8-10.2); NEUT % 64.8 % (42.8-82.8); PLATELET COUNT 261 K/MM3 (134-434); RBC 4.73 M/mm3 (3.60-5.2); RDW 13.3 % (11.6-15.6); WHITE BLOOD COUNT 10.3 K/mm3 (4.0-10.0)
[2020-11-20 23:04] LABS: CALCIUM 9.3 mg/dL (8.5-10.1)
[2020-11-20 23:05] LABS: ALBUMIN 3.7 g/dl (3.4-5.0); BLOOD UREA NITROGEN 17.3 mg/dL (7-18)
[2020-11-20 23:08] LABS: CREATININE 0.7 mg/dL (0.55-1.3)
[2020-11-20 23:10] LABS: BILIRUBIN,TOTAL 0.3 mg/dL (0.2-1); TOT PROT 6.9 g/dl (6.4-8.2)
[2020-11-20 23:30] VITALS: BP 126/62; PULSE 92
== END 2020-11-20 23:50 | disposition home or self-care (01) ==
LOC: JER 21:40
PROC: 3E0F7GC Introduction of Other Therapeutic Substance into Respiratory Tract, Via Natural or Artificial Opening (ICD-10-PCS; principal; 2020-11-20)
PROC: 3E033GC Introduction of Other Therapeutic Substance into Peripheral Vein, Percutaneous Approach (ICD-10-PCS; 2020-11-20)
PROC: 3E033GC Introduction of Other Therapeutic Substance into Peripheral Vein, Percutaneous Approach (ICD-10-PCS; 2020-11-20)
DX: J45.901 Unspecified asthma with (acute) exacerbation (principal)
CPT/HCPCS: 36415; 71045-TC-FY; 80053; 82803; 84703; 85025; 93005; 93010; 99285-25; J1100

== ENCOUNTER 2021-01-04 08:32 | Emergency (ER) | payer OTHER ==
[2021-01-04 08:43] VITALS: BP 123/78; TEMP 98.2; BMI 43.9
[2021-01-04] MEDS ORDERED: ALBUTEROL SO4 2.5/IPRATROPIUM 0.5 INH SOL 3 ML VIAL.NEB. NEB ONE ×4 (09:18→10:43)
[2021-01-04] MEDS ORDERED: predniSONE 20 MG TABLET (UD) PO ONE (09:21)
[2021-01-04 09:22] VITALS: PULSE 81
[2021-01-04] MEDS ORDERED: predniSONE 10 MG TABLET (UD) ONE (09:33)
[2021-01-04] MEDS ORDERED: predniSONE 20 MG TABLET (UD) ONE (09:33)
[2021-01-04] MEDS ORDERED: ALBUTEROL SO4 0.042% IH SOL 1.25 MG/3 ML VIAL.NEB NEB ONE (10:32)
[2021-01-04] MEDS ORDERED: ALBUTEROL SO4 0.083% IH SOL 2.5 MG/3 ML VIAL.NEB. NEB ONE ×2 (10:43→11:36)
== END 2021-01-04 11:45 | disposition home or self-care (01) ==
LOC: JER 08:32
PROC: 3E0F7GC Introduction of Other Therapeutic Substance into Respiratory Tract, Via Natural or Artificial Opening (ICD-10-PCS; principal; 2021-01-04)
DX: J45.909 Unspecified asthma, uncomplicated (principal)
CPT/HCPCS: 99284-25

== ENCOUNTER 2021-01-10 19:19 | Emergency (ER) | payer OTHER ==
[2021-01-10 19:34] VITALS: BP 133/90; TEMP 98.4; BMI 33.2
[2021-01-10] MEDS ORDERED: DEXAMETHASONE SOD PHOSPHATE 10 MG/1 ML VIAL IVPUSH ONE (19:58)
[2021-01-10] MEDS ORDERED: MAGNESIUM SULF 50% (8.12 MEQ/2 ML-1 GM VIAL) IVPB ONE (19:59)
[2021-01-10] MEDS ORDERED: MAGNESIUM SULFATE IN WATER 2 GM/50 ML IVPB IVPB ONE (20:01)
[2021-01-10] MEDS ORDERED: DEXAMETHASONE SOD PHOSPHATE 10 MG/1 ML VIAL ONE (20:01)
[2021-01-10] MEDS ORDERED: ACETAMINOPHEN 325 MG TABLET (FP) PO ONE (20:07)
[2021-01-10] MEDS ORDERED: ACETAMINOPHEN 325 MG TABLET (FP) ONE (20:15)
[2021-01-10] MEDS: ALBUTEROL SO4 2.5/IPRATROPIUM 0.5 INH SOL 3 ML VIAL.NEB. NEB SCH ×4 (20:15→21:02)
[2021-01-10 22:10] VITALS: PULSE 79
== END 2021-01-10 22:10 | disposition home or self-care (01) ==
LOC: JER 19:19
PROC: 3E0F7GC Introduction of Other Therapeutic Substance into Respiratory Tract, Via Natural or Artificial Opening (ICD-10-PCS; principal; 2021-01-10)
PROC: 3E033GC Introduction of Other Therapeutic Substance into Peripheral Vein, Percutaneous Approach (ICD-10-PCS; 2021-01-10)
PROC: 3E033GC Introduction of Other Therapeutic Substance into Peripheral Vein, Percutaneous Approach (ICD-10-PCS; 2021-01-10)
DX: J45.41 Moderate persistent asthma with (acute) exacerbation (principal)
CPT/HCPCS: 99284-25; J1100

== ENCOUNTER 2021-01-18 13:46 | Inpatient (IN) | payer OTHER ==
[2021-01-18] MEDS ORDERED: ALBUTEROL SO4 2.5/IPRATROPIUM 0.5 INH SOL 3 ML VIAL.NEB. NEB ONE ×2 (13:57→14:06)
[2021-01-18] MEDS ORDERED: ACETAMINOPHEN INJECTION 100 ML IVPB ONE (14:15)
[2021-01-18] MEDS ORDERED: ACETAMINOPHEN 325 MG TABLET (FP) PO ONE (14:16)
[2021-01-18] MEDS ORDERED: DEXAMETHASONE SOD PHOSPHATE 10 MG/1 ML VIAL IVPUSH ONE (14:16)
[2021-01-18] MEDS ORDERED: MAGNESIUM SULF 50% (8.12 MEQ/2 ML-1 GM VIAL) IVPB ONE (14:16)
[2021-01-18] MEDS ORDERED: TERBUTALINE SULFATE 1 MG/1 ML VIAL SQ ONE ×2 (14:21→14:32)
[2021-01-18] MEDS ORDERED: DEXAMETHASONE SOD PHOSPHATE 10 MG/1 ML VIAL ONE (14:32)
[2021-01-18] MEDS ORDERED: MAGNESIUM SULFATE IN WATER 2 GM/50 ML IVPB IVPB ONE (14:33)
[2021-01-18 14:56] LABS: VENOUS BASE EXCESS -2.5 mmol/L (-2-2); VENOUS O2 SATURATION 80.9 % (70-80); VENOUS PCO2 42.1 mmHg (38-52); VENOUS PH 7.354 (7.310-7.410)
[2021-01-18 14:58] LABS: BASO % 0.1 % (0-2.0); EOS % 1.6 % (0-4.5); HEMATOCRIT 39.3 % (32.4-45.2); HEMOGLOBIN 13.3 GM/dL (10.7-15.3); LYMPH % 3.2 % (8-40); MCH 27.7 pg (25.7-33.7); MCHC 33.8 g/dl (32.0-36.0); MEAN CELL VOLUME 81.8 fl (80-96); MEAN PLT VOLUME 8.1 fl (7.5-11.1); MONO % 2.1 % (3.8-10.2); PLATELET COUNT 241 10^3/uL (134-434); RBC 4.81 M/mm3 (3.60-5.2); RDW 13.5 % (11.6-15.6); WHITE BLOOD COUNT 15.5 K/mm3 (4.0-10.0)
[2021-01-18 15:14] LABS: CALCIUM 9.2 mg/dL (8.5-10.1)
[2021-01-18 15:18] LABS: CREATININE 0.6 mg/dL (0.55-1.3)
[2021-01-18 15:20] LABS: BILIRUBIN,TOTAL 0.5 mg/dL (0.2-1); TOT PROT 7.5 g/dl (6.4-8.2)
[2021-01-18 15:45] LABS: ANISOCYTOSIS 0; MACROCYTOSIS 0; PLATELET ESTIMATE NORMAL
[2021-01-18] MEDS ORDERED: ACETAMINOPHEN 325 MG TABLET (FP) ONE (16:12)
[2021-01-18] MEDS ORDERED: diphenhydrAMINE HCL 25 MG CAPSULE (FP) PO PRN (18:19)
[2021-01-18] MEDS: ALBUTEROL SO4 2.5/IPRATROPIUM 0.5 INH SOL 3 ML VIAL.NEB. NEB PRN ×2 (18:34→23:10)
[2021-01-18 20:06] VITALS: BMI 43.7
[2021-01-18] MEDS: BUDESONIDE/FORMETEROL FUMARATE 80/4.5 mcg INHALER IH SCH (21:19)
[2021-01-18] MEDS: methylPREDNISolone NA SUCC 40 MG/1 ML VIAL IVPUSH SCH (21:19)
[2021-01-18] MEDS ORDERED: guaiFENesin/D-M SUGAR-FREE/ACLHOL-FREE 5 ML UNIT DOSE PO ONE (21:38)
[2021-01-18] MEDS: BENZOCAINE/MENTH/CETYLPYRD CL 1 EACH LOZENGE MM PRN (22:29)
[2021-01-19] MEDS: methylPREDNISolone NA SUCC 40 MG/1 ML VIAL IVPUSH SCH ×4 (02:39→21:18)
[2021-01-19 08:21] LABS: HEMATOCRIT 38.9 % (32.4-45.2); HEMOGLOBIN 13.1 GM/dL (10.7-15.3); MCH 27.5 pg (25.7-33.7); MCHC 33.8 g/dl (32.0-36.0); MEAN CELL VOLUME 81.4 fl (80-96); MEAN PLT VOLUME 8.2 fl (7.5-11.1); PLATELET COUNT 255 10^3/uL (134-434); RBC 4.78 M/mm3 (3.60-5.2); RDW 13.7 % (11.6-15.6); WHITE BLOOD COUNT 14.9 K/mm3 (4.0-10.0)
[2021-01-19 08:50] LABS: ALBUMIN 3.6 g/dl (3.4-5.0); BLOOD UREA NITROGEN 10.9 mg/dL (7-18); CALCIUM 9.2 mg/dL (8.5-10.1); MAGNESIUM 2.6 mg/dL (1.8-2.4)
[2021-01-19 08:53] LABS: CREATININE 0.5 mg/dL (0.55-1.3); PHOSPHOROUS 2.9 mg/dL (2.5-4.9)
[2021-01-19 08:55] LABS: BILIRUBIN,TOTAL 0.4 mg/dL (0.2-1); TOT PROT 7.1 g/dl (6.4-8.2)
[2021-01-19] MEDS: ENOXAPARIN NA (PORCINE) 40 MG/0.4 ML DISP.SYRIN SQ SCH ×2 (09:20→09:27)
[2021-01-19] MEDS: PANTOPRAZOLE SODIUM 40 MG VIAL IVPUSH SCH (09:20)
[2021-01-19] MEDS: BUDESONIDE/FORMETEROL FUMARATE 80/4.5 mcg INHALER IH SCH ×2 (09:20→21:19)
[2021-01-19] MEDS: ALBUTEROL SO4 2.5/IPRATROPIUM 0.5 INH SOL 3 ML VIAL.NEB. NEB PRN (09:34)
[2021-01-19] MEDS: IBUPROFEN 400 MG TABLET (FP) PO PRN (11:25)
[2021-01-19] MEDS: ALBUTEROL SO4 2.5/IPRATROPIUM 0.5 INH SOL 3 ML VIAL.NEB. NEB SCH ×3 (12:55→20:25)
[2021-01-19] MEDS: MONTELUKAST NA 10 MG TABLET PO SCH (21:19)
[2021-01-20] MEDS: MELATONIN 5 MG TABLETS PO SCH ×2 (01:26→23:17)
[2021-01-20] MEDS: methylPREDNISolone NA SUCC 40 MG/1 ML VIAL IVPUSH SCH ×4 (05:40→21:18)
[2021-01-20] MEDS: ALBUTEROL SO4 2.5/IPRATROPIUM 0.5 INH SOL 3 ML VIAL.NEB. NEB SCH ×4 (08:25→20:11)
[2021-01-20 09:12] LABS: HEMOGLOBIN 13.3 GM/dL (10.7-15.3); LYMPH % 3.1 % (8-40); MCH 27.5 pg (25.7-33.7); MCHC 33.2 g/dl (32.0-36.0); MEAN CELL VOLUME 82.8 fl (80-96); MEAN PLT VOLUME 8.6 fl (7.5-11.1); MONO % 3.3 % (3.8-10.2); NEUT % 93.6 % (42.8-82.8); PLATELET COUNT 271 10^3/uL (134-434); RBC 4.83 M/mm3 (3.60-5.2); RDW 13.4 % (11.6-15.6); WHITE BLOOD COUNT 16.8 K/mm3 (4.0-10.0)
[2021-01-20 09:40] LABS: ANISOCYTOSIS 0; HELMET CELLS 0; HOWELL-JOLLY BODIES 0; MACROCYTOSIS 0; OVALOCYTE 0; PLATELET ESTIMATE NORMAL; ROULEAU 0; SICKELED CELLS 0; TARGET CELLS 0; TEAR DROP CELLS 0; TOXIC GRANULATION 0
[2021-01-20 09:50] LABS: CALCIUM 9.3 mg/dL (8.5-10.1)
[2021-01-20 09:51] LABS: ALBUMIN 3.7 g/dl (3.4-5.0); BLOOD UREA NITROGEN 15.8 mg/dL (7-18)
[2021-01-20 09:54] LABS: CREATININE 0.6 mg/dL (0.55-1.3)
[2021-01-20 09:55] LABS: BILIRUBIN,TOTAL 0.8 mg/dL (0.2-1); TOT PROT 7.1 g/dl (6.4-8.2)
[2021-01-20] MEDS: ENOXAPARIN NA (PORCINE) 40 MG/0.4 ML DISP.SYRIN SQ SCH (10:06)
[2021-01-20] MEDS: PANTOPRAZOLE SODIUM 40 MG VIAL IVPUSH SCH (10:07)
[2021-01-20] MEDS: BUDESONIDE/FORMETEROL FUMARATE 80/4.5 mcg INHALER IH SCH ×2 (10:09→21:20)
[2021-01-20] MEDS: IBUPROFEN 400 MG TABLET (FP) PO PRN ×2 (10:11→21:17)
[2021-01-20] MEDS: MONTELUKAST NA 10 MG TABLET PO SCH (21:17)
[2021-01-21] MEDS: methylPREDNISolone NA SUCC 40 MG/1 ML VIAL IVPUSH SCH ×3 (02:06→17:22)
[2021-01-21] MEDS: ALBUTEROL SO4 2.5/IPRATROPIUM 0.5 INH SOL 3 ML VIAL.NEB. NEB SCH ×4 (07:20→20:45)
[2021-01-21] MEDS: IBUPROFEN 400 MG TABLET (FP) PO PRN (10:03)
[2021-01-21] MEDS: PANTOPRAZOLE SODIUM 40 MG VIAL IVPUSH SCH (10:05)
[2021-01-21] MEDS: ENOXAPARIN NA (PORCINE) 40 MG/0.4 ML DISP.SYRIN SQ SCH (10:09)
[2021-01-21] MEDS: BUDESONIDE/FORMETEROL FUMARATE 80/4.5 mcg INHALER IH SCH ×2 (10:10→21:34)
[2021-01-21] MEDS: MONTELUKAST NA 10 MG TABLET PO SCH (21:33)
[2021-01-21] MEDS ORDERED: PT OWN MED DRAWER 7, Y5N ONE (21:37)
[2021-01-21] MEDS: BENZOCAINE/MENTH/CETYLPYRD CL 1 EACH LOZENGE MM PRN (21:38)
[2021-01-22] MEDS: methylPREDNISolone NA SUCC 40 MG/1 ML VIAL IVPUSH SCH ×4 (01:39→21:02)
[2021-01-22] MEDS ORDERED: diphenhydrAMINE HCL 25 MG CAPSULE (FP) PO ONE ×2 (02:33→20:43)
[2021-01-22] MEDS: MELATONIN 5 MG TABLETS PO SCH ×2 (02:46→21:02)
[2021-01-22] MEDS: ALBUTEROL SO4 2.5/IPRATROPIUM 0.5 INH SOL 3 ML VIAL.NEB. NEB SCH ×4 (08:15→20:15)
[2021-01-22 09:02] LABS: BASO % 0.1 % (0-2.0); HEMATOCRIT 42.4 % (32.4-45.2); HEMOGLOBIN 13.9 GM/dL (10.7-15.3); LYMPH % 4.5 % (8-40); MCH 27.1 pg (25.7-33.7); MCHC 32.8 g/dl (32.0-36.0); MEAN CELL VOLUME 82.9 fl (80-96); MEAN PLT VOLUME 8.1 fl (7.5-11.1); MONO % 4.3 % (3.8-10.2); NEUT % 91.1 % (42.8-82.8); PLATELET COUNT 283 10^3/uL (134-434); RBC 5.11 M/mm3 (3.60-5.2); RDW 13.4 % (11.6-15.6); WHITE BLOOD COUNT 14.1 K/mm3 (4.0-10.0)
[2021-01-22 09:12] LABS: CALCIUM 9.5 mg/dL (8.5-10.1)
[2021-01-22 09:13] LABS: BLOOD UREA NITROGEN 18.3 mg/dL (7-18); MAGNESIUM 2.5 mg/dL (1.8-2.4)
[2021-01-22 09:16] LABS: CREATININE 0.6 mg/dL (0.55-1.3)
[2021-01-22 11:20] LABS: ANISOCYTOSIS 1+; MACROCYTOSIS 1+; PLATELET ESTIMATE NORMAL
[2021-01-22] MEDS: PANTOPRAZOLE SODIUM 40 MG VIAL IVPUSH SCH (11:36)
[2021-01-22] MEDS: ENOXAPARIN NA (PORCINE) 40 MG/0.4 ML DISP.SYRIN SQ SCH (11:37)
[2021-01-22] MEDS: BUDESONIDE/FORMETEROL FUMARATE 80/4.5 mcg INHALER IH SCH ×2 (11:38→21:03)
[2021-01-22] MEDS: MONTELUKAST NA 10 MG TABLET PO SCH (21:02)
[2021-01-22] MEDS ORDERED: MELATONIN 5 MG TABLETS PO ONE (23:36)
[2021-01-22] MEDS ORDERED: traZODone HCL 50 MG TABLET (FP) PO ONE (23:51)
[2021-01-23] MEDS ORDERED: PT OWN MED DRAWER 7, Y5N ONE (04:53)
[2021-01-23] MEDS: ALBUTEROL SO4 2.5/IPRATROPIUM 0.5 INH SOL 3 ML VIAL.NEB. NEB SCH ×4 (08:00→21:15)
[2021-01-23] MEDS: predniSONE 20 MG TABLET (UD) PO SCH (10:39)
[2021-01-23] MEDS: PANTOPRAZOLE SODIUM 40 MG VIAL IVPUSH SCH (10:39)
[2021-01-23] MEDS: ENOXAPARIN NA (PORCINE) 40 MG/0.4 ML DISP.SYRIN SQ SCH (10:40)
[2021-01-23] MEDS: BUDESONIDE/FORMETEROL FUMARATE 80/4.5 mcg INHALER IH SCH ×2 (10:42→21:41)
[2021-01-23] MEDS: MONTELUKAST NA 10 MG TABLET PO SCH (21:41)
[2021-01-23] MEDS: MELATONIN 5 MG TABLETS PO SCH (21:41)
[2021-01-23] MEDS ORDERED: ZOLPIDEM TARTRATE 5 MG TABLET PO ONE (22:00)
[2021-01-24] MEDS: ALBUTEROL SO4 2.5/IPRATROPIUM 0.5 INH SOL 3 ML VIAL.NEB. NEB SCH ×4 (08:09→20:55)
[2021-01-24] MEDS: ENOXAPARIN NA (PORCINE) 40 MG/0.4 ML DISP.SYRIN SQ SCH (09:53)
[2021-01-24] MEDS: predniSONE 20 MG TABLET (UD) PO SCH (09:53)
[2021-01-24] MEDS: PANTOPRAZOLE SODIUM 40 MG VIAL IVPUSH SCH (09:54)
[2021-01-24] MEDS: BUDESONIDE/FORMETEROL FUMARATE 80/4.5 mcg INHALER IH SCH ×2 (09:54→21:40)
[2021-01-24 10:02] LABS: BASO % 0.1 % (0-2.0); EOS % 0.9 % (0-4.5); HEMATOCRIT 41.2 % (32.4-45.2); HEMOGLOBIN 13.9 GM/dL (10.7-15.3); LYMPH % 18.5 % (8-40); MCH 27.6 pg (25.7-33.7); MCHC 33.8 g/dl (32.0-36.0); MEAN CELL VOLUME 81.8 fl (80-96); MEAN PLT VOLUME 7.9 fl (7.5-11.1); MONO % 7.6 % (3.8-10.2); NEUT % 72.9 % (42.8-82.8); PLATELET COUNT 268 10^3/uL (134-434); RBC 5.04 M/mm3 (3.60-5.2); RDW 13.2 % (11.6-15.6); WHITE BLOOD COUNT 12.5 K/mm3 (4.0-10.0)
[2021-01-24 10:10] LABS: ALBUMIN 3.3 g/dl (3.4-5.0); BLOOD UREA NITROGEN 26.3 mg/dL (7-18); CALCIUM 9.3 mg/dL (8.5-10.1)
[2021-01-24 10:14] LABS: CREATININE 0.8 mg/dL (0.55-1.3)
[2021-01-24 10:15] LABS: BILIRUBIN,TOTAL 0.5 mg/dL (0.2-1); TOT PROT 6.5 g/dl (6.4-8.2)
[2021-01-24] MEDS: FLUTICASONE PROP 0.05% 16 GM NASAL SPRAY NS SCH (11:26)
[2021-01-24 11:30] LABS: ANISOCYTOSIS 0; MACROCYTOSIS 0; PLATELET ESTIMATE NORMAL
[2021-01-24] MEDS: MONTELUKAST NA 10 MG TABLET PO SCH (21:31)
[2021-01-24] MEDS: MELATONIN 5 MG TABLETS PO SCH (21:31)
[2021-01-25] MEDS: ALBUTEROL SO4 2.5/IPRATROPIUM 0.5 INH SOL 3 ML VIAL.NEB. NEB SCH ×6 (01:00→20:37)
[2021-01-25 09:16] LABS: EOS % 1.4 % (0-4.5); HEMATOCRIT 38.5 % (32.4-45.2); HEMOGLOBIN 12.6 GM/dL (10.7-15.3); LYMPH % 16.8 % (8-40); MCH 27.1 pg (25.7-33.7); MCHC 32.7 g/dl (32.0-36.0); MEAN CELL VOLUME 82.8 fl (80-96); MEAN PLT VOLUME 7.8 fl (7.5-11.1); MONO % 7.1 % (3.8-10.2); NEUT % 74.7 % (42.8-82.8); PLATELET COUNT 260 10^3/uL (134-434); RBC 4.65 M/mm3 (3.60-5.2); RDW 13.3 % (11.6-15.6); WHITE BLOOD COUNT 11.6 K/mm3 (4.0-10.0)
[2021-01-25] MEDS ORDERED: PT OWN MED DRAWER 7, Y5N ONE (09:20)
[2021-01-25] MEDS: predniSONE 20 MG TABLET (UD) PO SCH (09:21)
[2021-01-25] MEDS: ENOXAPARIN NA (PORCINE) 40 MG/0.4 ML DISP.SYRIN SQ SCH (09:21)
[2021-01-25] MEDS: PANTOPRAZOLE 40 MG TABLET PO SCH (09:21)
[2021-01-25] MEDS: BUDESONIDE/FORMETEROL FUMARATE 80/4.5 mcg INHALER IH SCH ×2 (09:23→21:21)
[2021-01-25] MEDS: FLUTICASONE PROP 0.05% 16 GM NASAL SPRAY NS SCH (09:23)
[2021-01-25 09:59] LABS: ANISOCYTOSIS 0; HELMET CELLS 0; HOWELL-JOLLY BODIES 0; MACROCYTOSIS 0; OVALOCYTE 0; PLATELET ESTIMATE NORMAL; ROULEAU 0; SICKELED CELLS 0; TARGET CELLS 0; TEAR DROP CELLS 0; TOXIC GRANULATION 0
[2021-01-25 10:25] LABS: CALCIUM 8.7 mg/dL (8.5-10.1)
[2021-01-25 10:26] LABS: BLOOD UREA NITROGEN 25.7 mg/dL (7-18)
[2021-01-25 10:29] LABS: CREATININE 0.6 mg/dL (0.55-1.3)
[2021-01-25 10:30] LABS: TOT PROT 5.7 g/dl (6.4-8.2)
[2021-01-25 11:05] LABS: BILIRUBIN,TOTAL 0.6 mg/dL (0.2-1)
[2021-01-25] MEDS ORDERED: DOCUSATE SODIUM 100 MG CAPSULE (FP) PO ONE (20:46)
[2021-01-25] MEDS ORDERED: SENNOSIDES 8.6MG TABLET (FP) PO ONE (20:46)
[2021-01-25] MEDS ORDERED: SIMETHICONE 80 MG TAB.CHEW (FP) PO ONE (20:47)
[2021-01-25] MEDS: MONTELUKAST NA 10 MG TABLET PO SCH (21:20)
[2021-01-25] MEDS: MELATONIN 5 MG TABLETS PO SCH (21:21)
[2021-01-26] MEDS: ALBUTEROL SO4 2.5/IPRATROPIUM 0.5 INH SOL 3 ML VIAL.NEB. NEB SCH ×2 (04:31)
[2021-01-26] MEDS: predniSONE 20 MG TABLET (UD) PO SCH (09:29)
[2021-01-26] MEDS: FLUTICASONE PROP 0.05% 16 GM NASAL SPRAY NS SCH (09:29)
[2021-01-26] MEDS: PANTOPRAZOLE 40 MG TABLET PO SCH (09:29)
[2021-01-26] MEDS: BUDESONIDE/FORMETEROL FUMARATE 80/4.5 mcg INHALER IH SCH (09:30)
[2021-01-26 09:53] VITALS: BP 149/86; PULSE 87; TEMP 98.6
== END 2021-01-26 14:01 | disposition home or self-care (01) | DRG 141 ==
LOC: JER 13:46 → JERBED 14:22 → J5S 17:45 → JERBED 01-23 21:05 → J5S 01-23 21:06
PROVIDERS: ATTEND Internal Medicine
DX: J45.51 Severe persistent asthma with (acute) exacerbation (principal); J45.909 Unspecified asthma, uncomplicated; E66.9 Obesity, unspecified; E78.5 Hyperlipidemia, unspecified; K21.9 Gastro-esophageal reflux disease without esophagitis; Z68.41 Body mass index [BMI] 40.0-44.9, adult
CPT/HCPCS: 36415; 71045-TC-FY; 80048; 80053; 82803; 83735; 84100; 84703; 85025; 85027; 87804; 87807; 93005; 93010; 94150; 94640; 99285-25; C9803; J1100; U0003; U0005

== ENCOUNTER 2021-03-12 21:17 | Inpatient (IN) | payer OTHER ==
[2021-03-12] MEDS ORDERED: ALBUTEROL SO4 2.5/IPRATROPIUM 0.5 INH SOL 3 ML VIAL.NEB. NEB ONE (22:09)
[2021-03-12] MEDS: ALBUTEROL SO4 2.5/IPRATROPIUM 0.5 INH SOL 3 ML VIAL.NEB. NEB SCH ×2 (22:13→22:30)
[2021-03-12] MEDS ORDERED: predniSONE 20 MG TABLET (UD) PO ONE (22:13)
[2021-03-12] MEDS ORDERED: predniSONE 20 MG TABLET (UD) ONE (22:24)
[2021-03-12 23:51] LABS: BASO % 0.8 % (0-2.0); EOS % 9.9 % (0-4.5); HEMATOCRIT 37.5 % (32.4-45.2); HEMOGLOBIN 12.9 GM/dL (10.7-15.3); LYMPH % 29.6 % (8-40); MCHC 34.4 g/dl (32.0-36.0); MEAN CELL VOLUME 81.4 fl (80-96); MEAN PLT VOLUME 7.7 fl (7.5-11.1); MONO % 7.6 % (3.8-10.2); NEUT % 52.1 % (42.8-82.8); PLATELET COUNT 252 10^3/uL (134-434); RBC 4.61 M/mm3 (3.60-5.2); RDW 13.7 % (11.6-15.6); WHITE BLOOD COUNT 8.1 K/mm3 (4.0-10.0)
[2021-03-13 00:19] LABS: CALCIUM 8.6 mg/dL (8.5-10.1)
[2021-03-13 00:20] LABS: ALBUMIN 4.1 g/dl (3.4-5.0); BLOOD UREA NITROGEN 17.9 mg/dL (7-18)
[2021-03-13 00:23] LABS: CREATININE 0.9 mg/dL (0.55-1.3)
[2021-03-13 00:24] LABS: BILIRUBIN,TOTAL 0.5 mg/dL (0.2-1); TOT PROT 7.4 g/dl (6.4-8.2)
[2021-03-13] MEDS ORDERED: ALBUTEROL SO4 0.083% IH SOL 2.5 MG/3 ML VIAL.NEB. NEB PRN (06:35)
[2021-03-13] MEDS: ALBUTEROL SO4 2.5/IPRATROPIUM 0.5 INH SOL 3 ML VIAL.NEB. NEB SCH ×4 (08:05→19:59)
[2021-03-13] MEDS ORDERED: ACETAMINOPHEN 325 MG TABLET (FP) ONE (08:07)
[2021-03-13] MEDS: ACETAMINOPHEN 325 MG TABLET (FP) PO PRN ×2 (08:44→15:19)
[2021-03-13] MEDS ORDERED: methylPREDNISolone NA SUCC 40 MG/1 ML VIAL ONE (08:48)
[2021-03-13] MEDS ORDERED: methylPREDNISolone NA SUCC 40 MG/1 ML VIAL IVPB SCH (09:00)
[2021-03-13] MEDS ORDERED: predniSONE 20 MG TABLET (UD) PO SCH (10:00)
[2021-03-13] MEDS: PANTOPRAZOLE 40 MG TABLET PO SCH (11:25)
[2021-03-13 13:18] VITALS: BMI 43.2
[2021-03-13] MEDS ORDERED: diphenhydrAMINE HCL 25 MG CAPSULE (FP) PO PRN (15:15)
[2021-03-13] MEDS: methylPREDNISolone NA SUCC 40 MG/1 ML VIAL IVPB SCH ×2 (21:37→22:24)
[2021-03-13] MEDS ORDERED: MONTELUKAST NA 10 MG TABLET PO SCH (22:00)
[2021-03-13] MEDS: methylPREDNISolone NA SUCC 40 MG/1 ML VIAL IVPUSH SCH (22:24)
[2021-03-14] MEDS: ALBUTEROL SO4 2.5/IPRATROPIUM 0.5 INH SOL 3 ML VIAL.NEB. NEB SCH ×3 (07:29→15:45)
[2021-03-14 08:43] LABS: BASO % 0.3 % (0-2.0); EOS % 0.1 % (0-4.5); HEMATOCRIT 38.4 % (32.4-45.2); HEMOGLOBIN 13.4 GM/dL (10.7-15.3); LYMPH % 7.3 % (8-40); MCH 28.6 pg (25.7-33.7); MCHC 34.8 g/dl (32.0-36.0); MEAN CELL VOLUME 82.1 fl (80-96); MEAN PLT VOLUME 8.3 fl (7.5-11.1); MONO % 4.7 % (3.8-10.2); NEUT % 87.6 % (42.8-82.8); PLATELET COUNT 293 10^3/uL (134-434); RBC 4.68 M/mm3 (3.60-5.2); RDW 13.5 % (11.6-15.6)
[2021-03-14 09:11] LABS: CALCIUM 8.7 mg/dL (8.5-10.1)
[2021-03-14 09:12] LABS: MAGNESIUM 2.2 mg/dL (1.8-2.4)
[2021-03-14 09:15] LABS: CREATININE 0.6 mg/dL (0.55-1.3); PHOSPHOROUS 3.5 mg/dL (2.5-4.9)
[2021-03-14 09:34] LABS: BLOOD UREA NITROGEN 12.6 mg/dL (7-18)
[2021-03-14] MEDS: PANTOPRAZOLE 40 MG TABLET PO SCH (10:08)
[2021-03-14] MEDS: methylPREDNISolone NA SUCC 40 MG/1 ML VIAL IVPUSH SCH (10:08)
[2021-03-14 12:19] VITALS: BP 126/63; PULSE 83; TEMP 98.2
== END 2021-03-14 16:39 | disposition home or self-care (01) | DRG 141 ==
LOC: JER 21:17 → JERBED 03-13 03:50 → J5S 03-13 09:13
PROVIDERS: ADMIT Internal Medicine; ATTEND Internal Medicine
DX: J45.41 Moderate persistent asthma with (acute) exacerbation (principal); G47.33 Obstructive sleep apnea (adult) (pediatric); E66.01 Morbid (severe) obesity due to excess calories; Z68.41 Body mass index [BMI] 40.0-44.9, adult
CPT/HCPCS: 36415; 71045-TC-FY; 80048; 80053; 83735; 84100; 84443; 84703; 85025; 94640; 99285-25; C9803; U0003; U0005

== ENCOUNTER 2021-05-20 17:42 | Emergency (ER) | payer OTHER ==
[2021-05-20 18:03] VITALS: BP 119/78; PULSE 88; TEMP 98.1; BMI 42.2
[2021-05-20] MEDS ORDERED: ALBUTEROL SO4 2.5/IPRATROPIUM 0.5 INH SOL 3 ML VIAL.NEB. NEB ONE ×2 (18:39→19:51)
[2021-05-20] MEDS ORDERED: MAGNESIUM SULF 50% (8.12 MEQ/2 ML-1 GM VIAL) IVPB ONE ×2 (18:40→19:51)
[2021-05-20] MEDS ORDERED: DEXAMETHASONE SOD PHOSPHATE 10 MG/1 ML VIAL IVPUSH ONE (18:40)
[2021-05-20] MEDS ORDERED: methylPREDNISolone NA SUCC 125 MG/2 ML VIAL IVPUSH ONE (18:47)
[2021-05-20] MEDS ORDERED: methylPREDNISolone NA SUCC 125 MG/2 ML VIAL ONE (19:51)
[2021-05-20] MEDS ORDERED: MAGNESIUM 1GM/D5W - 1 GM/100 ML IVPB IVPB ONE (19:52)
[2021-05-20 20:26] LABS: BASO % 1.3 % (0-2.0); HEMATOCRIT 39.5 % (32.4-45.2); HEMOGLOBIN 13.5 GM/dL (10.7-15.3); LYMPH % 20.1 % (8-40); MCHC 34.3 g/dl (32.0-36.0); MEAN CELL VOLUME 81.6 fl (80-96); MEAN PLT VOLUME 8.1 fl (7.5-11.1); MONO % 7.8 % (3.8-10.2); NEUT % 61.8 % (42.8-82.8); PLATELET COUNT 270 10^3/uL (134-434); RBC 4.84 M/mm3 (3.60-5.2); RDW 13.7 % (11.6-15.6); WHITE BLOOD COUNT 9.6 K/mm3 (4.0-10.0)
[2021-05-20 20:47] LABS: CALCIUM 8.6 mg/dL (8.5-10.1)
[2021-05-20 20:48] LABS: ALBUMIN 3.5 g/dl (3.4-5.0); BLOOD UREA NITROGEN 16.8 mg/dL (7-18)
[2021-05-20 20:51] LABS: CREATININE 0.7 mg/dL (0.55-1.3)
[2021-05-20 20:53] LABS: BILIRUBIN,TOTAL 0.4 mg/dL (0.2-1); TOT PROT 7.1 g/dl (6.4-8.2)
== END 2021-05-20 22:51 | disposition home or self-care (01) ==
LOC: JER 17:42
PROC: 3E033NZ Introduction of Analgesics, Hypnotics, Sedatives into Peripheral Vein, Percutaneous Approach (ICD-10-PCS; principal; 2021-05-20)
PROC: 3E0F7GC Introduction of Other Therapeutic Substance into Respiratory Tract, Via Natural or Artificial Opening (ICD-10-PCS; 2021-05-20)
PROC: 3E033GC Introduction of Other Therapeutic Substance into Peripheral Vein, Percutaneous Approach (ICD-10-PCS; 2021-05-20)
PROC: 3E033GC Introduction of Other Therapeutic Substance into Peripheral Vein, Percutaneous Approach (ICD-10-PCS; 2021-05-20)
PROC: 3E033GC Introduction of Other Therapeutic Substance into Peripheral Vein, Percutaneous Approach (ICD-10-PCS; 2021-05-20)
DX: J45.901 Unspecified asthma with (acute) exacerbation (principal)
CPT/HCPCS: 36415; 80053; 84703; 85025; 99284-25; J1100

== ENCOUNTER 2021-09-02 14:20 | Day surgery (SDC) | payer OTHER ==
[2021-09-02] MEDS ORDERED: MIDAZOLAM HCL 2 MG/2 ML SINGLE DOSE VIAL ONE (14:49)
[2021-09-02] MEDS ORDERED: PROPOFOL 20 ML ONE ×2 (14:49)
[2021-09-02] MEDS ORDERED: SUCCINYLCHOLINE CHLORIDE 200 MG/10 ML SYRINGE ONE (14:51)
[2021-09-02] MEDS ORDERED: LIDOCAINE 1%/EPI 1:100000 (20 ML MULTI DOSE VIAL) ONE (15:18)
[2021-09-02] MEDS ORDERED: ALBUTEROL SO4 HFA INHALER IH ONE (15:28)
[2021-09-02] MEDS ORDERED: DEXAMETHASONE SOD PHOSPHATE 4 MG/1 ML VIAL ONE (15:42)
[2021-09-02] MEDS ORDERED: AMPICILLIN NA/SULBACTAM NA 1.5 GM VIAL IVPB ONE ×2 (15:50)
[2021-09-02] MEDS ORDERED: NEOSTIGMINE METHYLSULFATE 0.5 MG/ML - 10 ML MDV ONE (17:38)
[2021-09-02] MEDS ORDERED: LIDOCAINE 1%/EPI 1:100000 (20 ML MULTI DOSE VIAL) IJ ONE (17:40)
[2021-09-02] MEDS ORDERED: ONDANSETRON 4 MG/2 ML VIAL IVPUSH PRN (18:15)
[2021-09-02] MEDS ORDERED: LACTATED RINGERS SOLUTION 1,000 ML IV SCH (18:15)
[2021-09-02] MEDS ORDERED: oxyCODONE HCL 5 MG TABLET PO PRN (18:15)
[2021-09-02] MEDS ORDERED: oxyCODONE HCL 5 MG TABLET ONE (19:16)
[2021-09-02 19:57] VITALS: BP 117/64; PULSE 62; TEMP 97.1
== END 2021-09-02 19:59 | disposition home or self-care (01) ==
LOC: JASU-SURG 14:20
PROVIDERS: ATTEND Otolaryngology
PROC: 09TV8ZZ Resection of Left Ethmoid Sinus, Via Natural or Artificial Opening Endoscopic (ICD-10-PCS; 2021-09-02)
PROC: 09TU8ZZ Resection of Right Ethmoid Sinus, Via Natural or Artificial Opening Endoscopic (ICD-10-PCS; 2021-09-02)
PROC: 09BR8ZX Excision of Left Maxillary Sinus, Via Natural or Artificial Opening Endoscopic, Diagnostic (ICD-10-PCS; 2021-09-02)
PROC: 09BQ8ZX Excision of Right Maxillary Sinus, Via Natural or Artificial Opening Endoscopic, Diagnostic (ICD-10-PCS; 2021-09-02)
PROC: 099R8ZZ Drainage of Left Maxillary Sinus, Via Natural or Artificial Opening Endoscopic (ICD-10-PCS; 2021-09-02)
PROC: 099Q8ZZ Drainage of Right Maxillary Sinus, Via Natural or Artificial Opening Endoscopic (ICD-10-PCS; 2021-09-02)
PROC: 8E09XBZ Computer Assisted Procedure of Head and Neck Region (ICD-10-PCS; principal; 2021-09-02 11:00)
DX: J32.4 Chronic pansinusitis (principal); J33.8 Other polyp of sinus; R09.81 Nasal congestion; G47.30 Sleep apnea, unspecified; J45.909 Unspecified asthma, uncomplicated
CPT/HCPCS: 81025; 87070; 87186; 87205; 88304-TC; 88311-TC; 94760

== ENCOUNTER 2021-11-05 22:24 | Emergency (ER) | payer OTHER ==
[2021-11-05 22:36] VITALS: BP 125/78; TEMP 98; BMI 41.0
[2021-11-05] MEDS ORDERED: ALBUTEROL SO4 2.5/IPRATROPIUM 0.5 INH SOL 3 ML VIAL.NEB. NEB ONE (22:49)
[2021-11-05] MEDS ORDERED: DEXAMETHASONE SOD PHOSPHATE 10 MG/1 ML VIAL IVPUSH ONE (22:50)
[2021-11-05] MEDS ORDERED: EPINEPHrine/PF 1 MG/1 ML (1:1,000) AMPULE ONE (22:51)
[2021-11-05] MEDS ORDERED: MAGNESIUM 1GM/D5W - 1 GM/100 ML IVPB IVPB ONE (23:00)
[2021-11-05] MEDS ORDERED: DEXAMETHASONE SOD PHOSPHATE 10 MG/1 ML VIAL ONE (23:00)
[2021-11-05] MEDS: ALBUTEROL SO4 2.5/IPRATROPIUM 0.5 INH SOL 3 ML VIAL.NEB. NEB SCH ×4 (23:00→23:45)
[2021-11-05] MEDS ORDERED: MAGNESIUM SULF 50% (8.12 MEQ/2 ML-1 GM VIAL) ONE (23:00)
[2021-11-05] MEDS ORDERED: EPINEPHrine 1:1,000 1,000 MCG/ML ML SQ ONE (23:54)
[2021-11-06 02:15] VITALS: PULSE 100
== END 2021-11-06 02:16 | disposition home or self-care (01) ==
LOC: JER 22:24
PROC: 3E0F7GC Introduction of Other Therapeutic Substance into Respiratory Tract, Via Natural or Artificial Opening (ICD-10-PCS; principal; 2021-11-05)
PROC: 3E033GC Introduction of Other Therapeutic Substance into Peripheral Vein, Percutaneous Approach (ICD-10-PCS; 2021-11-05)
PROC: 3E033GC Introduction of Other Therapeutic Substance into Peripheral Vein, Percutaneous Approach (ICD-10-PCS; 2021-11-05)
DX: J45.909 Unspecified asthma, uncomplicated (principal)
CPT/HCPCS: 99284-25; J1100

== ENCOUNTER 2021-12-06 19:44 | Inpatient (IN) | payer OTHER ==
[2021-12-06] MEDS ORDERED: ALBUTEROL SO4 2.5/IPRATROPIUM 0.5 INH SOL 3 ML VIAL.NEB. NEB ONE ×3 (20:09→20:12)
[2021-12-06] MEDS ORDERED: methylPREDNISolone NA SUCC 125 MG/2 ML VIAL IVPUSH ONE (20:14)
[2021-12-06] MEDS: ALBUTEROL SO4 2.5/IPRATROPIUM 0.5 INH SOL 3 ML VIAL.NEB. NEB SCH ×2 (20:28→20:29)
[2021-12-06] MEDS ORDERED: ACETAMINOPHEN 1000 MG/100 ML BAG IVPB ONE (20:29)
[2021-12-06] MEDS ORDERED: methylPREDNISolone NA SUCC 125 MG/2 ML VIAL ONE (20:30)
[2021-12-06] MEDS ORDERED: ACETAMINOPHEN INJECTION 100 ML IVPB ONE (20:35)
[2021-12-06] MEDS ORDERED: ALBUTEROL SO4 0.083% IH SOL 2.5 MG/3 ML VIAL.NEB. NEB ONE ×3 (20:48→22:23)
[2021-12-06] MEDS ORDERED: MAGNESIUM SULF 50% (8.12 MEQ/2 ML-1 GM VIAL) IVPB ONE (21:20)
[2021-12-06] MEDS ORDERED: MAGNESIUM SULFATE IN WATER 2 GM/50 ML IVPB IVPB ONE (21:30)
[2021-12-06 21:48] LABS: BASO % 0.7 % (0-2.0); EOS % 12.9 % (0-4.5); HEMATOCRIT 35.8 % (32.4-45.2); HEMOGLOBIN 12.4 GM/dL (10.7-15.3); LYMPH % 18.9 % (8-40); MCH 28.1 pg (25.7-33.7); MCHC 34.6 g/dl (32.0-36.0); MEAN CELL VOLUME 81.1 fl (80-96); MEAN PLT VOLUME 7.8 fl (7.5-11.1); MONO % 4.4 % (3.8-10.2); NEUT % 63.1 % (42.8-82.8); PLATELET COUNT 257 10^3/uL (134-434); RBC 4.42 M/mm3 (3.60-5.2); RDW 13.8 % (11.6-15.6); WHITE BLOOD COUNT 9.1 K/mm3 (4.0-10.0)
[2021-12-06 22:09] LABS: BLOOD UREA NITROGEN 20.3 mg/dL (7-18); CALCIUM 8.2 mg/dL (8.5-10.1)
[2021-12-06 22:10] LABS: ALBUMIN 3.4 g/dl (3.4-5.0)
[2021-12-06 22:13] LABS: CREATININE 0.7 mg/dL (0.55-1.3)
[2021-12-06 22:14] LABS: BILIRUBIN,TOTAL 0.4 mg/dL (0.2-1); TOT PROT 6.4 g/dl (6.4-8.2)
[2021-12-06] MEDS ORDERED: POTASSIUM CHLORIDE TABS 20 MEQ TABLET.ER (FP) PO ONE ×2 (22:58→23:26)
[2021-12-06] MEDS ORDERED: ALBUTEROL SO4 0.083% IH SOL 2.5 MG/3 ML VIAL.NEB. NEB PRN (23:01)
[2021-12-06] MEDS ORDERED: ACETAMINOPHEN 325 MG TABLET (FP) PO PRN (23:01)
[2021-12-06] MEDS ORDERED: POLYETHYLENE GLYCOL (HEALTHYLAX) 3350 17 GM PACKET PO PRN (23:01)
[2021-12-06] MEDS ORDERED: PANTOPRAZOLE SODIUM 40 MG VIAL IVPUSH ONE (23:13)
[2021-12-07] MEDS: methylPREDNISolone NA SUCC 40 MG/1 ML VIAL IVPUSH SCH ×4 (02:27→21:05)
[2021-12-07] MEDS: MELATONIN 5 MG TABLETS PO PRN (02:50)
[2021-12-07 03:32] VITALS: BMI 40.8
[2021-12-07 08:17] LABS: EOS % 0.1 % (0-4.5); HEMOGLOBIN 13.1 GM/dL (10.7-15.3); LYMPH % 5.4 % (8-40); MCH 27.6 pg (25.7-33.7); MCHC 33.6 g/dl (32.0-36.0); MEAN CELL VOLUME 81.9 fl (80-96); MEAN PLT VOLUME 8.3 fl (7.5-11.1); MONO % 0.9 % (3.8-10.2); NEUT % 93.6 % (42.8-82.8); PLATELET COUNT 309 10^3/uL (134-434); RBC 4.76 M/mm3 (3.60-5.2); RDW 13.2 % (11.6-15.6); WHITE BLOOD COUNT 6.3 K/mm3 (4.0-10.0)
[2021-12-07 08:23] LABS: PROTHROMBIN TIME (PATIENT) 11.5 SEC (9.7-13.0)
[2021-12-07 08:26] LABS: ACTIVATED PTT 29.6 SECONDS (25.2-36.5)
[2021-12-07 08:35] LABS: CALCIUM 9.3 mg/dL (8.5-10.1)
[2021-12-07 08:36] LABS: BLOOD UREA NITROGEN 14.2 mg/dL (7-18); MAGNESIUM 2.6 mg/dL (1.8-2.4)
[2021-12-07 08:39] LABS: CREATININE 0.6 mg/dL (0.55-1.3)
[2021-12-07] MEDS: FLUTICASONE PROP 0.05% 16 GM NASAL SPRAY NS SCH (09:09)
[2021-12-07] MEDS: ENOXAPARIN NA (PORCINE) 40 MG/0.4 ML DISP.SYRIN SQ SCH ×2 (09:09→09:47)
[2021-12-07] MEDS: PANTOPRAZOLE 40 MG TABLET PO SCH (09:09)
[2021-12-07] MEDS: LORATADINE 10 MG TABLET PO SCH (09:09)
[2021-12-07 09:27] LABS: ANISOCYTOSIS 0; HELMET CELLS 0; HOWELL-JOLLY BODIES 0; MACROCYTOSIS 0; OVALOCYTE 0; ROULEAU 0; SICKELED CELLS 0; TARGET CELLS 0; TEAR DROP CELLS 0; TOXIC GRANULATION 0
[2021-12-07] MEDS ORDERED: FLUTICASONE/UMECLIDIN/VILANTER(100-62.5-25 TRELEGY ELLIPTA) INAHLER IH SCH (10:00)
[2021-12-07] MEDS: IBUPROFEN 400 MG TABLET (FP) PO PRN ×2 (12:22→21:13)
[2021-12-07] MEDS: INSULIN SLIDING SCALE (NOVOLOG) 1 VIAL SQ SCH ×2 (17:15→22:19)
[2021-12-07] MEDS: MONTELUKAST NA 10 MG TABLET PO SCH (21:05)
[2021-12-08] MEDS: MELATONIN 5 MG TABLETS PO PRN (01:05)
[2021-12-08] MEDS: methylPREDNISolone NA SUCC 40 MG/1 ML VIAL IVPUSH SCH ×4 (03:30→21:35)
[2021-12-08] MEDS: INSULIN SLIDING SCALE (NOVOLOG) 1 VIAL SQ SCH ×4 (06:26→21:40)
[2021-12-08 08:02] LABS: HEMATOCRIT 40.7 % (32.4-45.2); HEMOGLOBIN 13.5 GM/dL (10.7-15.3); MCH 27.3 pg (25.7-33.7); MCHC 33.1 g/dl (32.0-36.0); MEAN CELL VOLUME 82.3 fl (80-96); MEAN PLT VOLUME 8.9 fl (7.5-11.1); PLATELET COUNT 307 10^3/uL (134-434); RBC 4.94 M/mm3 (3.60-5.2); RDW 13.4 % (11.6-15.6); WHITE BLOOD COUNT 15.9 K/mm3 (4.0-10.0)
[2021-12-08 08:26] LABS: CHLORIDE 107 mmol/L (98-107); SODIUM 138 mmol/L (136-145)
[2021-12-08 08:32] LABS: ALBUMIN 3.8 g/dl (3.4-5.0); ANION GAP 7 MMOL/L (8-16); BLOOD UREA NITROGEN 14.8 mg/dL (7-18); CALCIUM 9.5 mg/dL (8.5-10.1); CO2 24 mmol/L (21-32); GLUCOSE,RANDOM 147 mg/dL (74-106)
[2021-12-08 08:33] LABS: MAGNESIUM 2.5 mg/dL (1.8-2.4)
[2021-12-08 08:34] LABS: SGPT/ALT 17 U/L (13-61)
[2021-12-08 08:35] LABS: CREATININE 0.7 mg/dL (0.55-1.3); SGOT/AST 11 U/L (15-37)
[2021-12-08 08:36] LABS: TOT PROT 7.4 g/dl (6.4-8.2)
[2021-12-08 08:37] LABS: BILIRUBIN,TOTAL 0.3 mg/dL (0.2-1)
[2021-12-08 08:38] LABS: ALK PHOS 49 U/L (45-117)
[2021-12-08] MEDS: PANTOPRAZOLE 40 MG TABLET PO SCH (09:47)
[2021-12-08] MEDS: LORATADINE 10 MG TABLET PO SCH (09:47)
[2021-12-08] MEDS: FLUTICASONE PROP 0.05% 16 GM NASAL SPRAY NS SCH (09:52)
[2021-12-08] MEDS: ENOXAPARIN NA (PORCINE) 40 MG/0.4 ML DISP.SYRIN SQ SCH (09:52)
[2021-12-08] MEDS: FLUTICASONE/UMECLIDIN/VILANTER(200-62.5-25 TRELEGY ELLIPTA) INAHLER IH SCH (09:56)
[2021-12-08] MEDS ORDERED: PRENATAL VITAMINS W/ FOLIC ACID TABLET (FP) PO SCH (10:00)
[2021-12-08 13:53] LABS: ANISOCYTOSIS 0; MACROCYTOSIS 0; PLATELET ESTIMATE NORMAL
[2021-12-08] MEDS: MONTELUKAST NA 10 MG TABLET PO SCH (21:35)
[2021-12-08] MEDS ORDERED: ACETAMINOPHEN 1000 MG/100 ML BAG IVPB ONE (22:10)
[2021-12-08] MEDS ORDERED: MAG HYDROX/AL HYDROX/SIMETH 30 ML UNIT-DOSE CUP PO ONE (23:03)
[2021-12-09] MEDS: INSULIN SLIDING SCALE (NOVOLOG) 1 VIAL SQ SCH ×2 (06:18→10:38)
[2021-12-09] MEDS ORDERED: SENNOSIDES 8.6MG TABLET (FP) PO PRN (07:12)
[2021-12-09] MEDS ORDERED: BISACODYL 5 MG TABLET.DR (FP) PO PRN (07:13)
[2021-12-09] MEDS: DOCUSATE SODIUM 100 MG CAPSULE (FP) PO SCH ×2 (08:28→13:48)
[2021-12-09 09:24] LABS: BASO % 0.1 % (0-2.0); EOS % 0.1 % (0-4.5); HEMATOCRIT 41.4 % (32.4-45.2); HEMOGLOBIN 14.1 GM/dL (10.7-15.3); LYMPH % 10.8 % (8-40); MCH 27.9 pg (25.7-33.7); MCHC 34.2 g/dl (32.0-36.0); MEAN CELL VOLUME 81.5 fl (80-96); MEAN PLT VOLUME 7.8 fl (7.5-11.1); MONO % 5.8 % (3.8-10.2); NEUT % 83.2 % (42.8-82.8); PLATELET COUNT 313 10^3/uL (134-434); RBC 5.08 M/mm3 (3.60-5.2); RDW 13.6 % (11.6-15.6); WHITE BLOOD COUNT 12.1 K/mm3 (4.0-10.0)
[2021-12-09 09:52] LABS: CALCIUM 9.7 mg/dL (8.5-10.1)
[2021-12-09 09:53] LABS: ALBUMIN 3.8 g/dl (3.4-5.0); BLOOD UREA NITROGEN 19.4 mg/dL (7-18); MAGNESIUM 2.4 mg/dL (1.8-2.4)
[2021-12-09 09:56] LABS: CREATININE 0.7 mg/dL (0.55-1.3)
[2021-12-09 09:57] LABS: TOT PROT 7.4 g/dl (6.4-8.2)
[2021-12-09 09:58] LABS: BILIRUBIN,TOTAL 0.5 mg/dL (0.2-1)
[2021-12-09] MEDS ORDERED: POLYETHYLENE GLYCOL (HEALTHYLAX) 3350 17 GM PACKET PO SCH (10:00)
[2021-12-09] MEDS: FLUTICASONE PROP 0.05% 16 GM NASAL SPRAY NS SCH (10:47)
[2021-12-09] MEDS: LORATADINE 10 MG TABLET PO SCH (10:48)
[2021-12-09] MEDS: FLUTICASONE/UMECLIDIN/VILANTER(200-62.5-25 TRELEGY ELLIPTA) INAHLER IH SCH (10:48)
[2021-12-09] MEDS: methylPREDNISolone NA SUCC 40 MG/1 ML VIAL IVPUSH SCH (10:48)
[2021-12-09] MEDS: PANTOPRAZOLE 40 MG TABLET PO SCH (10:48)
[2021-12-09] MEDS: ENOXAPARIN NA (PORCINE) 40 MG/0.4 ML DISP.SYRIN SQ SCH ×2 (10:48→11:01)
[2021-12-09 15:35] VITALS: BP 125/80; PULSE 70; TEMP 98.2
== END 2021-12-09 15:38 | disposition home or self-care (01) | DRG 141 ==
LOC: JER 19:44 → JERBED 22:24 → J4S 12-07 02:17
PROVIDERS: ADMIT Hospitalist; ATTEND Nurse Practitioner Acute Care
DX: J45.41 Moderate persistent asthma with (acute) exacerbation (principal); G47.33 Obstructive sleep apnea (adult) (pediatric); E87.5 Hyperkalemia; E66.01 Morbid (severe) obesity due to excess calories; Z68.41 Body mass index [BMI] 40.0-44.9, adult; T38.0X5A Adverse effect of glucocorticoids and synthetic analogues, initial encounter; R73.9 Hyperglycemia, unspecified; D25.9 Leiomyoma of uterus, unspecified; R09.02 Hypoxemia; Z91.09 Other allergy status, other than to drugs and biological substances
CPT/HCPCS: 36415; 71045-TC-FY; 74018-TC-FY; 74178-TC; 76830-TC; 76856-TC; 80048; 80053; 82962; 83036; 83735; 84703; 85025; 85610; 85730; 86140; 93005; 93010; 94640; 99285-25; C9803-CS; Q9967; U0003; U0005

== ENCOUNTER 2022-10-23 23:18 | Emergency (ER) | payer OTHER ==
[2022-10-23 23:27] VITALS: RESP 18; BMI 44.9
[2022-10-24] MEDS ORDERED: DEXAMETHASONE 4 MG TABLET (FP) PO ONE (00:27)
[2022-10-24] MEDS ORDERED: DEXAMETHASONE SOD PHOSPHATE 10 MG/1 ML VIAL PO ONE (00:34)
[2022-10-24] MEDS ORDERED: DEXAMETHASONE SOD PHOSPHATE 10 MG/1 ML VIAL ONE (00:35)
[2022-10-24 01:55] VITALS: BP 114/62; PULSE 89; TEMP 97.8
== END 2022-10-24 01:35 | disposition home or self-care (01) ==
LOC: JER 23:18
DX: O99.513 Diseases of the respiratory system complicating pregnancy, third trimester (principal); J45.901 Unspecified asthma with (acute) exacerbation; J02.9 Acute pharyngitis, unspecified; Z3A.34 34 weeks gestation of pregnancy; Z20.822 Contact with and (suspected) exposure to COVID-19
CPT/HCPCS: 0241U-QW; 87651; 99283-25; J1100

== ENCOUNTER 2022-11-14 04:30 | Inpatient (IN) | payer OTHER ==
[2022-11-14] MEDS ORDERED: ONDANSETRON 4 MG/2 ML VIAL IVPUSH PRN (05:28)
[2022-11-14] MEDS ORDERED: morphine SULFATE/PF 1 MG/2 ML (2cc Syringe - QUVA) SPIN ONE (05:28)
[2022-11-14] MEDS ORDERED: ACETAMINOPHEN 1000 MG/100 ML BAG IVPB ONE (05:29)
[2022-11-14 05:41] LABS: PROTHROMBIN TIME (PATIENT) 11.6 SEC (9.7-13.0)
[2022-11-14 05:42] VITALS: BMI 44.9
[2022-11-14 05:44] LABS: ACTIVATED PTT 26.6 SECONDS (25.2-36.5)
[2022-11-14 05:53] LABS: CALCIUM 8.6 mg/dL (8.5-10.1)
[2022-11-14 05:54] LABS: BLOOD UREA NITROGEN 9.8 mg/dL (7-18)
[2022-11-14 05:57] LABS: CREATININE 0.4 mg/dL (0.55-1.3)
[2022-11-14 05:58] LABS: BASO % 0.3 % (0-2.0); EOS % 0.9 % (0-4.5); HEMATOCRIT 34.2 % (32.4-45.2); HEMOGLOBIN 12.2 GM/dL (10.7-15.3); LYMPH % 10.1 % (8-40); MCH 27.7 pg (25.7-33.7); MCHC 35.6 g/dl (32.0-36.0); MEAN CELL VOLUME 77.8 fl (80-96); MEAN PLT VOLUME 9.1 fl (7.5-11.1); NEUT % 80.7 % (42.8-82.8); PLATELET COUNT 217 10^3/uL (134-434); RBC 4.39 M/mm3 (3.60-5.2); RDW 13.9 % (11.6-15.6); WHITE BLOOD COUNT 10.6 K/mm3 (4.0-10.0)
[2022-11-14] MEDS ORDERED: FENTANYL CITRATE/PF 50 MCG/ML VIAL ONE (06:20)
[2022-11-14] MEDS ORDERED: MIDAZOLAM HCL 2 MG/2 ML SINGLE DOSE VIAL ONE ×2 (06:59→07:32)
[2022-11-14] MEDS ORDERED: ceFAZolin SODIUM 1 GM VIAL ONE (07:24)
[2022-11-14] MEDS ORDERED: ONDANSETRON 4 MG/2 ML VIAL ONE ×2 (07:24)
[2022-11-14] MEDS ORDERED: KETOROLAC TROMETHAMINE 30 MG/1 ML VIAL ONE (07:24)
[2022-11-14] MEDS ORDERED: OXYTOCIN 10 UNITS/ML VIAL ONE (07:24)
[2022-11-14] MEDS ORDERED: KETAMINE HCL 500 MG/10 ML VIAL ONE (07:57)
[2022-11-14] MEDS ORDERED: PROPOFOL 20 ML ONE (07:59)
[2022-11-14] MEDS ORDERED: GLYCOPYRROLATE 0.2 MG/1 ML VIAL ONE (08:03)
[2022-11-14] MEDS ORDERED: TRANEXAMIC ACID 1000 MG/10 ML VIAL ONE (08:05)
[2022-11-14] MEDS ORDERED: ONDANSETRON 4 MG/2 ML VIAL IVPB PRN (08:46)
[2022-11-14] MEDS ORDERED: ACETAMINOPHEN 1000 MG/100 ML BAG IVPB PRN (08:46)
[2022-11-14] MEDS ORDERED: IBUPROFEN 800 MG/8 ML IJ IVPB PRN (08:46)
[2022-11-14] MEDS: OXYTOCIN 20 UNITS in 0.9% NS 20 UNIT/1,000 ML INFUS.BAG IV SCH ×2 (08:50→20:02)
[2022-11-14] MEDS: ACETAMINOPHEN 1000 MG/100 ML BAG IVPB SCH ×2 (09:30→17:26)
[2022-11-14] MEDS ORDERED: ACETAMINOPHEN INJECTION 100 ML IVPB ONE (09:47)
[2022-11-14] MEDS ORDERED: IBUPROFEN 800 MG/8 ML IJ IVPB SCH (10:00)
[2022-11-14] MEDS ORDERED: ACETAMINOPHEN 1000 MG/100 ML BAG IVPB SCH (10:30)
[2022-11-14 12:55] LABS: BASO % 0.1 % (0-2.0); EOS % 0.3 % (0-4.5); HEMATOCRIT 29.2 % (32.4-45.2); HEMOGLOBIN 10.1 GM/dL (10.7-15.3); MCH 27.4 pg (25.7-33.7); MCHC 34.6 g/dl (32.0-36.0); MEAN CELL VOLUME 79.3 fl (80-96); MEAN PLT VOLUME 8.1 fl (7.5-11.1); MONO % 6.8 % (3.8-10.2); NEUT % 85.8 % (42.8-82.8); PLATELET COUNT 189 10^3/uL (134-434); RBC 3.69 M/mm3 (3.60-5.2); WHITE BLOOD COUNT 11.4 K/mm3 (4.0-10.0)
[2022-11-14] MEDS ORDERED: CEFAZOLIN 1 GM in DEXTROSE 5%-WATER - 50 ML IVPB SCH (14:30)
[2022-11-14] MEDS: IBUPROFEN 800 MG/8 ML IJ IVPB SCH ×2 (15:09→23:11)
[2022-11-15] MEDS: ACETAMINOPHEN 1000 MG/100 ML BAG IVPB SCH ×2 (02:04→10:02)
[2022-11-15] MEDS: IBUPROFEN 800 MG/8 ML IJ IVPB SCH (07:39)
[2022-11-15 07:53] LABS: BASO % 0.2 % (0-2.0); HEMATOCRIT 23.3 % (32.4-45.2); HEMOGLOBIN 8.3 GM/dL (10.7-15.3); LYMPH % 8.2 % (8-40); MCH 28.2 pg (25.7-33.7); MCHC 35.6 g/dl (32.0-36.0); MEAN CELL VOLUME 79.3 fl (80-96); MEAN PLT VOLUME 8.9 fl (7.5-11.1); MONO % 7.2 % (3.8-10.2); NEUT % 83.4 % (42.8-82.8); PLATELET COUNT 173 10^3/uL (134-434); RBC 2.94 M/mm3 (3.60-5.2); RDW 13.6 % (11.6-15.6); WHITE BLOOD COUNT 9.3 K/mm3 (4.0-10.0)
[2022-11-15] MEDS ORDERED: BISACODYL 10 MG SUPP.RECT RC PRN (08:46)
[2022-11-15] MEDS: ACETAMINOPHEN 325 MG TABLET (FP) PO SCH ×3 (10:36→22:31)
[2022-11-15] MEDS: FERROUS SO4 325 MG TABLET (FP) PO SCH (10:56)
[2022-11-15] MEDS: KETOROLAC TROMETHAMINE 30 MG/1 ML VIAL IVPUSH PRN ×2 (11:32→20:34)
[2022-11-15] MEDS: IBUPROFEN 600 MG TABLET (FP) PO SCH ×3 (11:46→22:31)
[2022-11-15] MEDS: SIMETHICONE 80 MG TAB.CHEW (FP) PO PRN ×2 (15:18→20:34)
[2022-11-15] MEDS ORDERED: ACETAMINOPHEN 500 MG TABLET (FP) PO PRN (15:30)
[2022-11-15] MEDS ORDERED: IBUPROFEN 600 MG TABLET (FP) PO PRN (20:00)
[2022-11-15] MEDS: SENNOSIDES/DOCUSATE COMBO (SENNA PLUS) TABLET (UD) PO PRN (21:11)
[2022-11-16] MEDS: SIMETHICONE 80 MG TAB.CHEW (FP) PO PRN ×2 (02:24→09:43)
[2022-11-16] MEDS: ACETAMINOPHEN 325 MG TABLET (FP) PO SCH ×2 (02:37→04:36)
[2022-11-16] MEDS: IBUPROFEN 600 MG TABLET (FP) PO SCH ×3 (02:38→14:27)
[2022-11-16] MEDS ORDERED: KETOROLAC TROMETHAMINE 10 MG TABLET PO PRN (08:50)
[2022-11-16] MEDS: FERROUS SO4 325 MG TABLET (FP) PO SCH (09:16)
[2022-11-16 09:36] LABS: BASO % 0.6 % (0-2.0); EOS % 1.5 % (0-4.5); HEMATOCRIT 24.1 % (32.4-45.2); HEMOGLOBIN 8.4 GM/dL (10.7-15.3); LYMPH % 11.2 % (8-40); MCH 27.6 pg (25.7-33.7); MCHC 34.7 g/dl (32.0-36.0); MEAN CELL VOLUME 79.5 fl (80-96); MEAN PLT VOLUME 8.6 fl (7.5-11.1); MONO % 6.6 % (3.8-10.2); NEUT % 80.1 % (42.8-82.8); PLATELET COUNT 191 10^3/uL (134-434); RBC 3.03 M/mm3 (3.60-5.2); RDW 13.9 % (11.6-15.6); WHITE BLOOD COUNT 8.5 K/mm3 (4.0-10.0)
[2022-11-16] MEDS ORDERED: ACETAMINOPHEN 325 MG TABLET (FP) PO SCH (09:50)
[2022-11-16] MEDS: ACETAMINOPHEN 500 MG TABLET (FP) PO SCH ×3 (11:22→23:42)
[2022-11-16] MEDS: KETOROLAC TROMETHAMINE 10 MG TABLET PO SCH ×2 (14:35→21:18)
[2022-11-16] MEDS: SENNOSIDES/DOCUSATE COMBO (SENNA PLUS) TABLET (UD) PO PRN (21:17)
[2022-11-17] MEDS: ACETAMINOPHEN 500 MG TABLET (FP) PO SCH ×3 (02:52→20:32)
[2022-11-17] MEDS: KETOROLAC TROMETHAMINE 10 MG TABLET PO SCH ×4 (03:18→21:59)
[2022-11-17] MEDS: SENNOSIDES/DOCUSATE COMBO (SENNA PLUS) TABLET (UD) PO PRN (09:01)
[2022-11-17] MEDS: SIMETHICONE 80 MG TAB.CHEW (FP) PO PRN ×2 (09:02→20:32)
[2022-11-17] MEDS ORDERED: ACETAMINOPHEN/CAFFEINE/BUTALBITAL 1 TAB PO ONE (10:02)
[2022-11-17] MEDS: FERROUS SO4 325 MG TABLET (FP) PO SCH (11:33)
[2022-11-17] MEDS: PANTOPRAZOLE SOD 40 MG SUSPENSION PACKET PO SCH (15:29)
[2022-11-17] MEDS: FAMOTIDINE 20 MG TABLET PO SCH (15:30)
[2022-11-17 21:40] VITALS: RESP 16
[2022-11-18] MEDS: ACETAMINOPHEN 500 MG TABLET (FP) PO SCH ×2 (02:37→12:57)
[2022-11-18] MEDS ORDERED: IBUPROFEN 600 MG TABLET (FP) PO SCH (04:00)
[2022-11-18] MEDS ORDERED: IBUPROFEN 600 MG TABLET (FP) PO PRN (04:00)
[2022-11-18] MEDS: FAMOTIDINE 20 MG TABLET PO SCH (09:40)
[2022-11-18] MEDS: FERROUS SO4 325 MG TABLET (FP) PO SCH (09:47)
[2022-11-18] MEDS: PANTOPRAZOLE SOD 40 MG SUSPENSION PACKET PO SCH (10:09)
[2022-11-18 11:03] VITALS: BP 121/90; PULSE 83; TEMP 98
== END 2022-11-18 14:10 | disposition home or self-care (01) | DRG 540 ==
LOC: JDEL 04:30 → JLDR 04:55 → J3W 10:00
PROVIDERS: ADMIT Obstetrics & Gynecology; ATTEND Obstetrics & Gynecology
PROC: 10D00Z1 Extraction of Products of Conception, Low, Open Approach (ICD-10-PCS; principal; 2022-11-14)
DX: O34.211 Maternal care for low transverse scar from previous cesarean delivery (principal); Z37.0 Single live birth; O42.92 Full-term premature rupture of membranes, unspecified as to length of time between rupture and onset of labor; O34.13 Maternal care for benign tumor of corpus uteri, third trimester; D25.9 Leiomyoma of uterus, unspecified; N73.6 Female pelvic peritoneal adhesions (postinfective); Z86.59 Personal history of other mental and behavioral disorders; F53.0 Postpartum depression; Z3A.37 37 weeks gestation of pregnancy
CPT/HCPCS: 36415; 80048; 85025; 85610; 85730; 86780; 86850; 86900; 86901; 87340; 88307-TC; 94010; C9803-CS; U0003; U0005

== ENCOUNTER 2022-11-27 08:30 | Inpatient (IN) | payer OTHER ==
[~2022-11-27 08:30] MED LIST: ALBUTEROL SO4 2.5/IPRATROPIUM 0.5 INH SOL 3 ML VIAL.NEB. NEB ONE
[2022-11-27 08:40] VITALS: BMI 40.0
[2022-11-27] MEDS ORDERED: ALBUTEROL SO4 2.5/IPRATROPIUM 0.5 INH SOL 3 ML VIAL.NEB. NEB ONE ×4 (08:40→23:35)
[2022-11-27] MEDS ORDERED: MAGNESIUM SULF 50% (8.12 MEQ/2 ML-1 GM VIAL) IVPB ONE (09:01)
[2022-11-27] MEDS ORDERED: methylPREDNISolone NA SUCC 125 MG/2 ML VIAL IVPB ONE (09:01)
[2022-11-27] MEDS ORDERED: MAGNESIUM 1GM/D5W - 1 GM/100 ML IVPB IVPB ONE (09:06)
[2022-11-27] MEDS ORDERED: MAGNESIUM SULFATE IN WATER 2 GM/50 ML IVPB IVPB ONE (09:07)
[2022-11-27] MEDS ORDERED: methylPREDNISolone NA SUCC 125 MG/2 ML VIAL ONE (09:07)
[2022-11-27] MEDS ORDERED: CLOTRIMAZOLE 1%TOPICAL SOLUTION 30 ML BOTTLE TP ONE (09:50)
[2022-11-27 10:00] LABS: BASO % 0.4 % (0-2.0); EOS % 0.9 % (0-4.5); HEMATOCRIT 27.5 % (32.4-45.2); HEMOGLOBIN 9.5 GM/dL (10.7-15.3); LYMPH % 10.8 % (8-40); MCH 26.6 pg (25.7-33.7); MCHC 34.5 g/dl (32.0-36.0); MEAN CELL VOLUME 76.9 fl (80-96); MEAN PLT VOLUME 7.6 fl (7.5-11.1); MONO % 12.9 % (3.8-10.2); PLATELET COUNT 447 10^3/uL (134-434); RBC 3.58 M/mm3 (3.60-5.2); RDW 13.6 % (11.6-15.6)
[2022-11-27 10:01] LABS: VENOUS PH 7.39 (7.310-7.410)
[2022-11-27 10:02] LABS: VENOUS BASE EXCESS 2.1 mmol/L (-2-2); VENOUS O2 SATURATION 43.7 % (70-80); VENOUS PCO2 46.5 mmHg (38-52)
[2022-11-27 10:09] LABS: INR 1.14 (0.83-1.09); PROTHROMBIN TIME (PATIENT) 13.2 SEC (9.7-13.0)
[2022-11-27 10:12] LABS: ACTIVATED PTT 28.6 SECONDS (25.2-36.5)
[2022-11-27 10:18] LABS: POTASSIUM 3.4 mmol/L (3.5-5.1)
[2022-11-27 10:20] LABS: CALCIUM 9.3 mg/dL (8.5-10.1)
[2022-11-27 10:21] LABS: ALBUMIN 2.9 g/dl (3.4-5.0); BLOOD UREA NITROGEN 12.8 mg/dL (7-18)
[2022-11-27 10:24] LABS: CREATININE 0.7 mg/dL (0.55-1.3)
[2022-11-27 10:25] LABS: BILIRUBIN,TOTAL 0.2 mg/dL (0.2-1); TOT PROT 7.2 g/dl (6.4-8.2)
[2022-11-27] MEDS ORDERED: POTASSIUM CHLORIDE TABS 20 MEQ TABLET.ER (FP) PO ONE ×2 (10:44→12:09)
[2022-11-27] MEDS ORDERED: SODIUM CHLORIDE 0.9% 500 ML INFUS.BAG IV ONE (11:25)
[2022-11-27 12:54] LABS: EPI CELLS 21 /uL (0-25.1); HYALINE CASTS 0 /uL (0-3.1); PH,URINE 5.5 (5.0-8.0); URINE APPEARANCE CLEAR; URINE BACTERIA 22 /uL (0-1359); URINE BILIRUBIN NEGATIVE (NEGATIVE); URINE COLOR YELLOW; URINE GLUCOSE (UA) NEGATIVE (NEGATIVE); URINE KETONE NEGATIVE (NEGATIVE); URINE LEUK ESTERASE 2+ (NEGATIVE); URINE NITRITE NEGATIVE (NEGATIVE); URINE PROTEIN NEGATIVE (NEGATIVE); URINE RBC 15 /uL (0-23.9); URINE WBC 111 /uL (0-25.8)
[2022-11-27] MEDS ORDERED: ALBUTEROL SO4 0.083% IH SOL 2.5 MG/3 ML VIAL.NEB. NEB ONE (13:23)
[2022-11-27] MEDS ORDERED: OSELTAMIVIR PHOSPHATE 45 MG CAPSULE PO ONE (13:37)
[2022-11-27] MEDS ORDERED: ACETAMINOPHEN 325 MG TABLET (FP) PO PRN (13:52)
[2022-11-27] MEDS ORDERED: LACTATED RINGERS SOLUTION 1,000 ML IV SCH (14:00)
[2022-11-27] MEDS: ALBUTEROL SO4 0.083% IH SOL 2.5 MG/3 ML VIAL.NEB. NEB SCH (20:00)
[2022-11-27] MEDS: OSELTAMIVIR PHOSPHATE 75 MG CAPSULE PO SCH (21:39)
[2022-11-27] MEDS: MONTELUKAST NA 10 MG TABLET PO SCH (21:40)
[2022-11-27] MEDS: CLOTRIMAZOLE 1%TOPICAL SOLUTION 30 ML BOTTLE TP SCH (21:42)
[2022-11-28] MEDS ORDERED: ALBUTEROL SO4 2.5/IPRATROPIUM 0.5 INH SOL 3 ML VIAL.NEB. NEB ONE (00:15)
[2022-11-28] MEDS ORDERED: ALBUTEROL SO4 0.083% IH SOL 2.5 MG/3 ML VIAL.NEB. NEB ONE (03:00)
[2022-11-28] MEDS: ALBUTEROL SO4 0.083% IH SOL 2.5 MG/3 ML VIAL.NEB. NEB SCH (07:02)
[2022-11-28] MEDS ORDERED: predniSONE 20 MG TABLET (UD) PO SCH (10:00)
[2022-11-28 10:09] LABS: BASO % 0.3 % (0-2.0); EOS % 1.1 % (0-4.5); HEMATOCRIT 25.5 % (32.4-45.2); HEMOGLOBIN 8.8 GM/dL (10.7-15.3); LYMPH % 6.5 % (8-40); MCH 26.5 pg (25.7-33.7); MCHC 34.7 g/dl (32.0-36.0); MEAN CELL VOLUME 76.4 fl (80-96); MEAN PLT VOLUME 7.7 fl (7.5-11.1); MONO % 9.1 % (3.8-10.2); PLATELET COUNT 440 10^3/uL (134-434); RBC 3.33 M/mm3 (3.60-5.2); RDW 14.5 % (11.6-15.6); WHITE BLOOD COUNT 7.8 K/mm3 (4.0-10.0)
[2022-11-28 10:18] LABS: INR 1.04 (0.83-1.09); PROTHROMBIN TIME (PATIENT) 12.1 SEC (9.7-13.0)
[2022-11-28 10:21] LABS: ACTIVATED PTT 24.9 SECONDS (25.2-36.5)
[2022-11-28] MEDS: LORATADINE 10 MG TABLET PO SCH ×2 (10:24→10:46)
[2022-11-28] MEDS: OSELTAMIVIR PHOSPHATE 75 MG CAPSULE PO SCH ×2 (10:24→22:12)
[2022-11-28] MEDS: PANTOPRAZOLE 40 MG TABLET PO SCH (10:24)
[2022-11-28] MEDS: ENOXAPARIN NA (PORCINE) 40 MG/0.4 ML DISP.SYRIN SQ SCH (10:24)
[2022-11-28] MEDS: BUDESONIDE/FORMETEROL FUMARATE 80/4.5 mcg INHALER IH SCH (10:25)
[2022-11-28] MEDS: ALBUTEROL SO4 HFA INHALER IH PRN (10:26)
[2022-11-28] MEDS: BENZOCAINE/MENTH/CETYLPYRD CL 1 EACH LOZENGE MM PRN (10:27)
[2022-11-28] MEDS: FLUTICASONE PROP 0.05% 16 GM NASAL SPRAY NS SCH (10:28)
[2022-11-28 10:35] LABS: POTASSIUM 3.6 mmol/L (3.5-5.1)
[2022-11-28 10:40] LABS: CALCIUM 8.9 mg/dL (8.5-10.1)
[2022-11-28 10:41] LABS: ALBUMIN 2.5 g/dl (3.4-5.0)
[2022-11-28 10:44] LABS: CREATININE 0.6 mg/dL (0.55-1.3); PHOSPHOROUS 2.5 mg/dL (2.5-4.9)
[2022-11-28 10:46] LABS: BILIRUBIN,TOTAL 0.2 mg/dL (0.2-1); TOT PROT 6.3 g/dl (6.4-8.2)
[2022-11-28 10:49] LABS: N-TERMINAL BNP 44.4 pg/ml (5-125)
[2022-11-28] MEDS: ALBUTEROL SO4 2.5/IPRATROPIUM 0.5 INH SOL 3 ML VIAL.NEB. NEB SCH ×3 (11:30→20:05)
[2022-11-28] MEDS: guaiFENesin 600 MG TABLET.ER (FP) PO SCH ×2 (12:46→22:12)
[2022-11-28] MEDS: CLOTRIMAZOLE 1%TOPICAL SOLUTION 30 ML BOTTLE TP SCH ×2 (12:57→22:12)
[2022-11-28] MEDS: methylPREDNISolone NA SUCC 40 MG/1 ML VIAL IVPUSH SCH (17:41)
[2022-11-28] MEDS: MONTELUKAST NA 10 MG TABLET PO SCH (22:12)
[2022-11-29] MEDS: methylPREDNISolone NA SUCC 40 MG/1 ML VIAL IVPUSH SCH ×3 (02:07→17:45)
[2022-11-29] MEDS: ALBUTEROL SO4 HFA INHALER IH PRN (04:53)
[2022-11-29] MEDS: ALBUTEROL SO4 2.5/IPRATROPIUM 0.5 INH SOL 3 ML VIAL.NEB. NEB SCH ×4 (07:25→19:42)
[2022-11-29] MEDS: FLUTICASONE PROP 0.05% 16 GM NASAL SPRAY NS SCH (09:16)
[2022-11-29] MEDS: OSELTAMIVIR PHOSPHATE 75 MG CAPSULE PO SCH ×2 (09:16→21:25)
[2022-11-29] MEDS: guaiFENesin 600 MG TABLET.ER (FP) PO SCH ×2 (09:16→21:24)
[2022-11-29] MEDS: PANTOPRAZOLE 40 MG TABLET PO SCH (09:16)
[2022-11-29] MEDS: BENZOCAINE/MENTH/CETYLPYRD CL 1 EACH LOZENGE MM PRN (09:17)
[2022-11-29] MEDS: BUDESONIDE/FORMETEROL FUMARATE 80/4.5 mcg INHALER IH SCH (09:17)
[2022-11-29 11:32] LABS: HEMATOCRIT 26.3 % (32.4-45.2); HEMOGLOBIN 9.2 GM/dL (10.7-15.3); MCH 26.6 pg (25.7-33.7); MEAN PLT VOLUME 7.5 fl (7.5-11.1); PLATELET COUNT 516 10^3/uL (134-434); RBC 3.46 M/mm3 (3.60-5.2); RDW 14.7 % (11.6-15.6); WHITE BLOOD COUNT 6.9 K/mm3 (4.0-10.0)
[2022-11-29] MEDS: CLOTRIMAZOLE 1%TOPICAL SOLUTION 30 ML BOTTLE TP SCH (11:54)
[2022-11-29] MEDS: ENOXAPARIN NA (PORCINE) 40 MG/0.4 ML DISP.SYRIN SQ SCH (11:56)
[2022-11-29] MEDS: FLUTICASONE/UMECLIDIN/VILANTER(100-62.5-25 TRELEGY ELLIPTA) INAHLER IH SCH (11:56)
[2022-11-29] MEDS: NYSTATIN POWDER 100,000 UNITS/GM - 15 GM TOPICAL POWDER TP SCH (15:54)
[2022-11-29] MEDS: POLYETHYLENE GLYCOL (HEALTHYLAX) 3350 17 GM PACKET PO SCH (15:54)
[2022-11-29] MEDS: MONTELUKAST NA 10 MG TABLET PO SCH (21:24)
[2022-11-29] MEDS: SENNOSIDES 8.6MG TABLET (FP) PO SCH (21:25)
[2022-11-30] MEDS: methylPREDNISolone NA SUCC 125 MG/2 ML VIAL IM SCH ×2 (01:52→10:52)
[2022-11-30] MEDS: ALBUTEROL SO4 2.5/IPRATROPIUM 0.5 INH SOL 3 ML VIAL.NEB. NEB SCH ×4 (07:36→20:45)
[2022-11-30 10:37] LABS: HEMATOCRIT 26.9 % (32.4-45.2); HEMOGLOBIN 9.1 GM/dL (10.7-15.3); MCHC 33.9 g/dl (32.0-36.0); MEAN CELL VOLUME 76.7 fl (80-96); PLATELET COUNT 520 10^3/uL (134-434); RDW 14.5 % (11.6-15.6); WHITE BLOOD COUNT 10.4 K/mm3 (4.0-10.0)
[2022-11-30] MEDS: ENOXAPARIN NA (PORCINE) 40 MG/0.4 ML DISP.SYRIN SQ SCH (10:51)
[2022-11-30] MEDS: PANTOPRAZOLE 40 MG TABLET PO SCH (10:52)
[2022-11-30] MEDS: OSELTAMIVIR PHOSPHATE 75 MG CAPSULE PO SCH ×2 (10:52→22:36)
[2022-11-30] MEDS: SENNOSIDES 8.6MG TABLET (FP) PO SCH ×2 (10:52→22:35)
[2022-11-30] MEDS: guaiFENesin 600 MG TABLET.ER (FP) PO SCH ×2 (10:52→22:36)
[2022-11-30] MEDS: POLYETHYLENE GLYCOL (HEALTHYLAX) 3350 17 GM PACKET PO SCH (10:53)
[2022-11-30] MEDS: FLUTICASONE/UMECLIDIN/VILANTER(100-62.5-25 TRELEGY ELLIPTA) INAHLER IH SCH (10:54)
[2022-11-30] MEDS: FLUTICASONE PROP 0.05% 16 GM NASAL SPRAY NS SCH (10:54)
[2022-11-30] MEDS: NYSTATIN POWDER 100,000 UNITS/GM - 15 GM TOPICAL POWDER TP SCH (10:54)
[2022-11-30] MEDS ORDERED: predniSONE 20 MG TABLET (UD) PO ONE (15:11)
[2022-11-30] MEDS: MONTELUKAST NA 10 MG TABLET PO SCH (22:36)
[2022-11-30] MEDS: BACITRACIN ZINC 15 GM TUBE TOPICAL OINTMENT TP SCH (22:37)
[2022-12-01] MEDS: ALBUTEROL SO4 2.5/IPRATROPIUM 0.5 INH SOL 3 ML VIAL.NEB. NEB SCH ×4 (07:38→20:15)
[2022-12-01] MEDS: BACITRACIN ZINC 15 GM TUBE TOPICAL OINTMENT TP SCH (10:49)
[2022-12-01] MEDS: SENNOSIDES 8.6MG TABLET (FP) PO SCH ×2 (10:49→21:26)
[2022-12-01] MEDS: PANTOPRAZOLE 40 MG TABLET PO SCH (10:50)
[2022-12-01] MEDS: predniSONE 20 MG TABLET (UD) PO SCH (10:50)
[2022-12-01] MEDS: OSELTAMIVIR PHOSPHATE 75 MG CAPSULE PO SCH ×2 (10:50→21:26)
[2022-12-01] MEDS: POLYETHYLENE GLYCOL (HEALTHYLAX) 3350 17 GM PACKET PO SCH (10:50)
[2022-12-01] MEDS: FLUTICASONE PROP 0.05% 16 GM NASAL SPRAY NS SCH (10:51)
[2022-12-01] MEDS: FLUTICASONE/UMECLIDIN/VILANTER(100-62.5-25 TRELEGY ELLIPTA) INAHLER IH SCH (10:52)
[2022-12-01] MEDS: NYSTATIN POWDER 100,000 UNITS/GM - 15 GM TOPICAL POWDER TP SCH (10:52)
[2022-12-01] MEDS: ENOXAPARIN NA (PORCINE) 40 MG/0.4 ML DISP.SYRIN SQ SCH (10:56)
[2022-12-01] MEDS: CEPHALEXIN MONOHYDRATE 500 MG CAPSULE (UD) PO SCH ×2 (14:35→21:26)
[2022-12-01] MEDS: MONTELUKAST NA 10 MG TABLET PO SCH (21:26)
[2022-12-02] MEDS: ALBUTEROL SO4 2.5/IPRATROPIUM 0.5 INH SOL 3 ML VIAL.NEB. NEB SCH ×4 (08:00→20:16)
[2022-12-02] MEDS: BACITRACIN ZINC 15 GM TUBE TOPICAL OINTMENT TP SCH ×2 (10:21→10:23)
[2022-12-02] MEDS: SENNOSIDES 8.6MG TABLET (FP) PO SCH ×2 (10:21→21:30)
[2022-12-02] MEDS: predniSONE 20 MG TABLET (UD) PO SCH (10:21)
[2022-12-02] MEDS: OSELTAMIVIR PHOSPHATE 75 MG CAPSULE PO SCH (10:22)
[2022-12-02] MEDS: CEPHALEXIN MONOHYDRATE 500 MG CAPSULE (UD) PO SCH (10:22)
[2022-12-02] MEDS: PANTOPRAZOLE 40 MG TABLET PO SCH (10:22)
[2022-12-02] MEDS: FLUTICASONE PROP 0.05% 16 GM NASAL SPRAY NS SCH (10:22)
[2022-12-02] MEDS: FLUTICASONE/UMECLIDIN/VILANTER(100-62.5-25 TRELEGY ELLIPTA) INAHLER IH SCH (10:28)
[2022-12-02] MEDS ORDERED: VANCOMYCIN PREMIX 1.5 GM 1,500 MG/300 ML BAG IVPB ONE (11:00)
[2022-12-02] MEDS: POLYETHYLENE GLYCOL (HEALTHYLAX) 3350 17 GM PACKET PO SCH (11:01)
[2022-12-02 13:18] LABS: HEMATOCRIT 29.1 % (32.4-45.2); HEMOGLOBIN 9.7 GM/dL (10.7-15.3); MCH 25.5 pg (25.7-33.7); MCHC 33.3 g/dl (32.0-36.0); MEAN CELL VOLUME 76.7 fl (80-96); MEAN PLT VOLUME 7.1 fl (7.5-11.1); PLATELET COUNT 638 10^3/uL (134-434); RBC 3.79 M/mm3 (3.60-5.2); RDW 14.6 % (11.6-15.6); WHITE BLOOD COUNT 14.7 K/mm3 (4.0-10.0)
[2022-12-02] MEDS ORDERED: VANCOMYCIN/WATER 1250 MG 1,250 MG/250 ML BAG IVPB SCH (15:00)
[2022-12-02] MEDS: CEFEPIME 1 GM in DEXTROSE 5%-WATER 100 ML IVPB SCH (17:11)
[2022-12-02] MEDS: VANCOMYCIN/WATER 1250 MG 1,250 MG/250 ML BAG IVPB SCH (18:14)
[2022-12-02] MEDS: MONTELUKAST NA 10 MG TABLET PO SCH (21:30)
[2022-12-03] MEDS: CEFEPIME 1 GM in DEXTROSE 5%-WATER 100 ML IVPB SCH ×4 (00:13→22:40)
[2022-12-03] MEDS: VANCOMYCIN/WATER 1250 MG 1,250 MG/250 ML BAG IVPB SCH (04:24)
[2022-12-03] MEDS: ALBUTEROL SO4 2.5/IPRATROPIUM 0.5 INH SOL 3 ML VIAL.NEB. NEB SCH ×4 (09:00→20:07)
[2022-12-03] MEDS: POLYETHYLENE GLYCOL (HEALTHYLAX) 3350 17 GM PACKET PO SCH (10:06)
[2022-12-03] MEDS: SENNOSIDES 8.6MG TABLET (FP) PO SCH ×2 (10:06→22:40)
[2022-12-03] MEDS: predniSONE 20 MG TABLET (UD) PO SCH (10:06)
[2022-12-03] MEDS: PANTOPRAZOLE 40 MG TABLET PO SCH (10:06)
[2022-12-03] MEDS: FLUTICASONE PROP 0.05% 16 GM NASAL SPRAY NS SCH (10:07)
[2022-12-03] MEDS: FLUTICASONE/UMECLIDIN/VILANTER(100-62.5-25 TRELEGY ELLIPTA) INAHLER IH SCH (10:08)
[2022-12-03] MEDS: BACITRACIN ZINC 15 GM TUBE TOPICAL OINTMENT TP SCH (10:14)
[2022-12-03] MEDS ORDERED: CEFEPIME HCL 1 GM VIAL (RESTRICTED TO ID) ONE (14:50)
[2022-12-03] MEDS: MONTELUKAST NA 10 MG TABLET PO SCH (22:40)
[2022-12-04] MEDS: CEFEPIME 1 GM in DEXTROSE 5%-WATER 100 ML IVPB SCH (06:37)
[2022-12-04] MEDS: ALBUTEROL SO4 2.5/IPRATROPIUM 0.5 INH SOL 3 ML VIAL.NEB. NEB SCH ×3 (07:50→15:19)
[2022-12-04] MEDS: predniSONE 20 MG TABLET (UD) PO SCH (09:49)
[2022-12-04] MEDS: SENNOSIDES 8.6MG TABLET (FP) PO SCH (09:49)
[2022-12-04] MEDS: PANTOPRAZOLE 40 MG TABLET PO SCH (09:49)
[2022-12-04] MEDS: FLUTICASONE PROP 0.05% 16 GM NASAL SPRAY NS SCH (09:50)
[2022-12-04] MEDS: FLUTICASONE/UMECLIDIN/VILANTER(100-62.5-25 TRELEGY ELLIPTA) INAHLER IH SCH (09:50)
[2022-12-04] MEDS: POLYETHYLENE GLYCOL (HEALTHYLAX) 3350 17 GM PACKET PO SCH (09:50)
[2022-12-04] MEDS: BACITRACIN ZINC 15 GM TUBE TOPICAL OINTMENT TP SCH (09:53)
[2022-12-04 11:14] VITALS: BP 108/65; PULSE 98; RESP 16; TEMP 97.9
[2022-12-04] MEDS ORDERED: AMOX TR/POT CLAV 875MG/125MG TABLETS (FP) PO ONE (13:58)
== END 2022-12-04 15:57 | disposition home health service (06) | DRG 141 ==
LOC: JER 08:30 → JERBED 13:35 → J6S 15:18 → OBSVTOIN 11-29 10:45
PROVIDERS: ADMIT Internal Medicine; ATTEND Internal Medicine
DX: J45.41 Moderate persistent asthma with (acute) exacerbation (principal); Z68.41 Body mass index [BMI] 40.0-44.9, adult; E66.9 Obesity, unspecified; D50.9 Iron deficiency anemia, unspecified; D75.839 Thrombocytosis, unspecified; K21.9 Gastro-esophageal reflux disease without esophagitis; J11.1 Influenza due to unidentified influenza virus with other respiratory manifestations; G47.33 Obstructive sleep apnea (adult) (pediatric); O86.09 Infection of obstetric surgical wound, other surgical site
CPT/HCPCS: 0241U-QW; 36415; 71045-TC-FY; 74176-TC; 80053; 81003; 82803; 83735; 83880; 84100; 85025; 85027; 85610; 85730; 87040; 87070; 87086; 87186; 87205; 93005; 93010; 93970-TC; 94010; 94640; 94761; 99285-25; G0378

== ENCOUNTER 2023-03-17 23:07 | Emergency (ER) | payer OTHER ==
[2023-03-17 23:27] VITALS: BP 124/80; PULSE 83; RESP 22; TEMP 97.8; BMI 36.1
[2023-03-17] MEDS ORDERED: ALBUTEROL SO4 2.5/IPRATROPIUM 0.5 INH SOL 3 ML VIAL.NEB. NEB ONE ×2 (23:31→23:41)
[2023-03-17] MEDS ORDERED: MAGNESIUM SULF 50% (8.12 MEQ/2 ML-1 GM VIAL) IVPB ONE (23:31)
[2023-03-17] MEDS ORDERED: methylPREDNISolone NA SUCC 125 MG/2 ML VIAL IVPB ONE (23:31)
[2023-03-17] MEDS ORDERED: MAGNESIUM SULFATE IN WATER 2 GM/50 ML IVPB IVPB ONE (23:41)
[2023-03-17] MEDS ORDERED: methylPREDNISolone NA SUCC 125 MG/2 ML VIAL ONE (23:41)
[2023-03-18] MEDS ORDERED: SODIUM CHLORIDE 0.9% 1000 ML INFUS.BAG IV ONE (00:01)
[2023-03-18] MEDS ORDERED: ACETAMINOPHEN 500 MG TABLET (FP) PO ONE (00:51)
[2023-03-18] MEDS ORDERED: ACETAMINOPHEN 325 MG TABLET (FP) ONE (01:02)
== END 2023-03-18 01:35 | disposition home or self-care (01) ==
LOC: JER 23:07
PROC: 3E0F7GC Introduction of Other Therapeutic Substance into Respiratory Tract, Via Natural or Artificial Opening (ICD-10-PCS; principal; 2023-03-17)
PROC: 3E033GC Introduction of Other Therapeutic Substance into Peripheral Vein, Percutaneous Approach (ICD-10-PCS; 2023-03-17)
PROC: 3E033GC Introduction of Other Therapeutic Substance into Peripheral Vein, Percutaneous Approach (ICD-10-PCS; 2023-03-17)
DX: J45.909 Unspecified asthma, uncomplicated (principal); R06.02 Shortness of breath
CPT/HCPCS: 71045-TC-FY; 76882-TC-LT; 99284-25

== ENCOUNTER 2023-03-31 18:26 | Emergency (ER) | payer OTHER ==
[2023-03-31 18:31] VITALS: BMI 40.8
[2023-03-31] MEDS ORDERED: ALBUTEROL SO4 2.5/IPRATROPIUM 0.5 INH SOL 3 ML VIAL.NEB. NEB ONE ×2 (18:34→18:41)
[2023-03-31] MEDS: ALBUTEROL SO4 2.5/IPRATROPIUM 0.5 INH SOL 3 ML VIAL.NEB. NEB SCH ×3 (18:40→19:06)
[2023-03-31] MEDS ORDERED: methylPREDNISolone NA SUCC 125 MG/2 ML VIAL ONE (18:41)
[2023-03-31] MEDS ORDERED: methylPREDNISolone NA SUCC 125 MG/2 ML VIAL IVPUSH ONE (19:03)
[2023-03-31 21:35] LABS: BASO % 0.5 % (0-2.0); EOS % 7.2 % (0-4.5); HEMATOCRIT 37.1 % (32.4-45.2); HEMOGLOBIN 12.5 GM/dL (10.7-15.3); LYMPH % 16.7 % (8-40); MCH 26.1 pg (25.7-33.7); MCHC 33.7 g/dl (32.0-36.0); MEAN CELL VOLUME 77.6 fl (80-96); MEAN PLT VOLUME 8.8 fl (7.5-11.1); MONO % 4.7 % (3.8-10.2); NEUT % 70.9 % (42.8-82.8); PLATELET COUNT 322 10^3/uL (134-434); RBC 4.78 M/mm3 (3.60-5.2); WHITE BLOOD COUNT 9.8 K/mm3 (4.0-10.0)
[2023-03-31 22:18] VITALS: BP 137/67; PULSE 85; RESP 23; TEMP 98.5
[2023-03-31 22:18] LABS: POTASSIUM 3.9 mmol/L (3.5-5.1)
[2023-03-31 22:19] LABS: ALBUMIN 3.4 g/dl (3.4-5.0); CALCIUM 8.7 mg/dL (8.5-10.1)
[2023-03-31 22:21] LABS: BLOOD UREA NITROGEN 11.5 mg/dL (7-18)
[2023-03-31 22:22] LABS: CREATININE 0.7 mg/dL (0.55-1.3)
[2023-03-31 22:25] LABS: BILIRUBIN,TOTAL 0.3 mg/dL (0.2-1)
== END 2023-03-31 23:04 | disposition home or self-care (01) ==
LOC: JER 18:26
PROC: 3E0F7GC Introduction of Other Therapeutic Substance into Respiratory Tract, Via Natural or Artificial Opening (ICD-10-PCS; principal; 2023-03-31)
PROC: 3E033GC Introduction of Other Therapeutic Substance into Peripheral Vein, Percutaneous Approach (ICD-10-PCS; 2023-03-31)
DX: J45.901 Unspecified asthma with (acute) exacerbation (principal); R06.02 Shortness of breath; R07.9 Chest pain, unspecified; R51.9 Headache, unspecified
CPT/HCPCS: 36415; 80053; 85025; 99284-25

== ENCOUNTER 2023-04-13 17:44 | Emergency (ER) | payer OTHER ==
[2023-04-13 17:52] VITALS: BP 115/75; PULSE 100; RESP 22; TEMP 98.5; BMI 40.8
[2023-04-13] MEDS ORDERED: MAGNESIUM SULF 50% (8.12 MEQ/2 ML-1 GM VIAL) IVPB ONE (18:38)
[2023-04-13] MEDS ORDERED: DEXAMETHASONE SOD PHOSPHATE 10 MG/1 ML VIAL IM ONE (18:58)
[2023-04-13] MEDS ORDERED: FLUTICASONE PROP 0.05% 16 GM NASAL SPRAY NS ONE (18:58)
[2023-04-13] MEDS ORDERED: ALBUTEROL SO4 2.5/IPRATROPIUM 0.5 INH SOL 3 ML VIAL.NEB. NEB ONE (19:03)
[2023-04-13] MEDS ORDERED: DEXAMETHASONE SOD PHOSPHATE 10 MG/1 ML VIAL ONE (19:03)
[2023-04-13] MEDS: ALBUTEROL SO4 2.5/IPRATROPIUM 0.5 INH SOL 3 ML VIAL.NEB. NEB SCH ×2 (19:22→19:23)
[2023-04-13] MEDS ORDERED: DOXYCYCLINE HYCLATE 100 MG CAPSULE PO ONE ×2 (19:48→19:50)
[2023-04-13] MEDS ORDERED: AMOX TR/POT CLAV 875MG/125MG TABLETS (FP) PO ONE (19:48)
[2023-04-13] MEDS ORDERED: AMOX TR/POT CLAV 875MG/125MG TABLETS (FP) ONE (19:51)
== END 2023-04-13 20:10 | disposition home or self-care (01) ==
LOC: JERFT 17:44
PROC: 3E023GC Introduction of Other Therapeutic Substance into Muscle, Percutaneous Approach (ICD-10-PCS; principal; 2023-04-13)
PROC: 3E0F7GC Introduction of Other Therapeutic Substance into Respiratory Tract, Via Natural or Artificial Opening (ICD-10-PCS; 2023-04-13)
DX: R05.9 Cough, unspecified (principal); R09.81 Nasal congestion; R06.2 Wheezing; J18.9 Pneumonia, unspecified organism; Z20.822 Contact with and (suspected) exposure to COVID-19
CPT/HCPCS: 0241U-QW; 71046-TC-FY; 99284-25; J1100

== ENCOUNTER 2023-05-25 15:10 | Emergency (ER) | payer OTHER ==
[2023-05-25] MEDS ORDERED: ALBUTEROL SO4 2.5/IPRATROPIUM 0.5 INH SOL 3 ML VIAL.NEB. NEB ONE ×2 (15:18→15:53)
[2023-05-25 15:21] VITALS: BP 118/76; PULSE 92; RESP 16; TEMP 98.5; BMI 40.2
[2023-05-25] MEDS: ALBUTEROL SO4 2.5/IPRATROPIUM 0.5 INH SOL 3 ML VIAL.NEB. NEB SCH ×3 (15:30→16:31)
[2023-05-25] MEDS ORDERED: methylPREDNISolone NA SUCC 125 MG/2 ML VIAL IVPB ONE (15:37)
[2023-05-25] MEDS ORDERED: MAGNESIUM SULFATE IN WATER 2 GM/50 ML IVPB IVPB ONE ×2 (15:38→16:12)
[2023-05-25] MEDS ORDERED: ACETAMINOPHEN 1000 MG/100 ML BAG IVPB ONE (15:42)
[2023-05-25] MEDS ORDERED: methylPREDNISolone NA SUCC 125 MG/2 ML VIAL ONE (16:12)
[2023-05-25] MEDS ORDERED: ACETAMINOPHEN INJECTION 100 ML IVPB ONE (16:20)
[2023-05-25 16:21] LABS: BASO % 1.1 % (0-2.0); EOS % 9.2 % (0-4.5); HEMATOCRIT 36.1 % (32.4-45.2); LYMPH % 28.3 % (8-40); MCH 26.3 pg (25.7-33.7); MCHC 33.1 g/dl (32.0-36.0); MEAN CELL VOLUME 79.5 fl (80-96); MEAN PLT VOLUME 7.7 fl (7.5-11.1); NEUT % 55.4 % (42.8-82.8); PLATELET COUNT 383 10^3/uL (134-434); RBC 4.54 M/mm3 (3.60-5.2); RDW 14.1 % (11.6-15.6); WHITE BLOOD COUNT 6.8 K/mm3 (4.0-10.0)
[2023-05-25 16:39] LABS: POTASSIUM 4.1 mmol/L (3.5-5.1)
[2023-05-25 16:41] LABS: CALCIUM 8.9 mg/dL (8.5-10.1)
[2023-05-25 16:42] LABS: ALBUMIN 3.5 g/dl (3.4-5.0); BLOOD UREA NITROGEN 14.2 mg/dL (7-18)
[2023-05-25 16:45] LABS: CREATININE 0.7 mg/dL (0.55-1.3)
[2023-05-25 16:46] LABS: BILIRUBIN,TOTAL 0.5 mg/dL (0.2-1); TOT PROT 7.9 g/dl (6.4-8.2)
[2023-05-25] MEDS ORDERED: KETOROLAC TROMETHAMINE 15 MG/ML VIAL IVPUSH ONE (17:40)
[2023-05-25] MEDS ORDERED: KETOROLAC TROMETHAMINE 15 MG/ML VIAL ONE (17:46)
== END 2023-05-25 19:14 | disposition home or self-care (01) ==
LOC: JER 15:10
PROC: 3E033GC Introduction of Other Therapeutic Substance into Peripheral Vein, Percutaneous Approach (ICD-10-PCS; principal; 2023-05-25)
PROC: 3E033GC Introduction of Other Therapeutic Substance into Peripheral Vein, Percutaneous Approach (ICD-10-PCS; 2023-05-25)
PROC: 3E033GC Introduction of Other Therapeutic Substance into Peripheral Vein, Percutaneous Approach (ICD-10-PCS; 2023-05-25)
PROC: 3E033GC Introduction of Other Therapeutic Substance into Peripheral Vein, Percutaneous Approach (ICD-10-PCS; 2023-05-25)
PROC: 3E0F7GC Introduction of Other Therapeutic Substance into Respiratory Tract, Via Natural or Artificial Opening (ICD-10-PCS; 2023-05-25)
PROC: 3E0F7GC Introduction of Other Therapeutic Substance into Respiratory Tract, Via Natural or Artificial Opening (ICD-10-PCS; 2023-05-25)
DX: J45.901 Unspecified asthma with (acute) exacerbation (principal); R07.89 Other chest pain; Z20.822 Contact with and (suspected) exposure to COVID-19
CPT/HCPCS: 0241U-QW; 36415; 80053; 84703; 85025; 99284-25

== ENCOUNTER 2023-06-30 00:36 | Emergency (ER) | payer OTHER ==
[2023-06-30 00:53] VITALS: BP 126/75; PULSE 97; RESP 18; TEMP 98.3; BMI 37.0
[2023-06-30] MEDS ORDERED: DEXAMETHASONE 4 MG TABLET (FP) PO ONE ×2 (01:20→01:48)
[2023-06-30] MEDS: ALBUTEROL SO4 2.5/IPRATROPIUM 0.5 INH SOL 3 ML VIAL.NEB. NEB SCH ×4 (01:51→02:16)
[2023-06-30] MEDS ORDERED: DEXAMETHASONE 4 MG TABLET (FP) ONE (01:52)
[2023-06-30] MEDS ORDERED: ALBUTEROL SO4 2.5/IPRATROPIUM 0.5 INH SOL 3 ML VIAL.NEB. NEB ONE (01:52)
== END 2023-06-30 02:39 | disposition home or self-care (01) ==
LOC: JER 00:36
PROC: 3E0F7GC Introduction of Other Therapeutic Substance into Respiratory Tract, Via Natural or Artificial Opening (ICD-10-PCS; principal; 2023-06-30)
DX: R05.9 Cough, unspecified (principal); R06.7 Sneezing; B97.4 Respiratory syncytial virus as the cause of diseases classified elsewhere; R06.2 Wheezing; Z20.822 Contact with and (suspected) exposure to COVID-19
CPT/HCPCS: 0241U-QW; 99283-25

== ENCOUNTER 2023-07-01 17:51 | Emergency (ER) | payer OTHER ==
[2023-07-01 17:58] VITALS: BP 125/79; PULSE 101; RESP 18; TEMP 98.2; BMI 39.0
[2023-07-01] MEDS ORDERED: SODIUM CHLORIDE 0.9% 1000 ML INFUS.BAG IV ONE (18:22)
[2023-07-01] MEDS ORDERED: MAGNESIUM SULF 50% (8.12 MEQ/2 ML-1 GM VIAL) IVPB ONE (18:22)
[2023-07-01] MEDS ORDERED: MAGNESIUM SULFATE IN WATER 2 GM/50 ML IVPB IVPB ONE (18:31)
[2023-07-01 19:03] LABS: BASO % 0.1 % (0-2.0); HEMOGLOBIN 12.9 GM/dL (10.7-15.3); LYMPH % 2.1 % (8-40); MCH 27.1 pg (25.7-33.7); MCHC 34.8 g/dl (32.0-36.0); MEAN CELL VOLUME 77.8 fl (80-96); MEAN PLT VOLUME 7.9 fl (7.5-11.1); NEUT % 96.8 % (42.8-82.8); PLATELET COUNT 335 10^3/uL (134-434); RBC 4.75 M/mm3 (3.60-5.2); RDW 14.8 % (11.6-15.6); WHITE BLOOD COUNT 10.5 K/mm3 (4.0-10.0)
[2023-07-01 19:20] LABS: POTASSIUM 4.1 mmol/L (3.5-5.1)
[2023-07-01 19:22] LABS: ALBUMIN 3.8 g/dl (3.4-5.0); BLOOD UREA NITROGEN 16.7 mg/dL (7-18)
[2023-07-01 19:25] LABS: CREATININE 1.1 mg/dL (0.55-1.3)
[2023-07-01 19:27] LABS: BILIRUBIN,TOTAL 0.3 mg/dL (0.2-1); TOT PROT 7.5 g/dl (6.4-8.2)
[2023-07-01 20:27] LABS: ANISOCYTOSIS 1+; MACROCYTOSIS 0
== END 2023-07-01 21:06 | disposition home or self-care (01) ==
LOC: JERFT 17:51
PROC: 3E033GC Introduction of Other Therapeutic Substance into Peripheral Vein, Percutaneous Approach (ICD-10-PCS; principal; 2023-07-01)
DX: J18.9 Pneumonia, unspecified organism (principal); J45.901 Unspecified asthma with (acute) exacerbation; R07.89 Other chest pain; R05.9 Cough, unspecified
CPT/HCPCS: 36415; 71046-TC-FY; 80053; 85025; 99284-25

== ENCOUNTER 2023-08-03 13:25 | Emergency (ER) | payer OTHER ==
[2023-08-03 13:38] VITALS: BP 134/87; PULSE 96; RESP 20; TEMP 98.1; BMI 39.2
[2023-08-03] MEDS: ALBUTEROL SO4 2.5/IPRATROPIUM 0.5 INH SOL 3 ML VIAL.NEB. NEB SCH ×3 (14:30→15:00)
[2023-08-03] MEDS ORDERED: DEXAMETHASONE LIQUID 0.5 MG/5 ML PO ONE (14:36)
[2023-08-03] MEDS ORDERED: DEXAMETHASONE SOD PHOSPHATE 10 MG/1 ML VIAL ONE (14:37)
== END 2023-08-03 16:18 | disposition home or self-care (01) ==
LOC: FER 13:25
PROC: 3E033NZ Introduction of Analgesics, Hypnotics, Sedatives into Peripheral Vein, Percutaneous Approach (ICD-10-PCS; principal; 2023-08-03)
PROC: 3E0F7GC Introduction of Other Therapeutic Substance into Respiratory Tract, Via Natural or Artificial Opening (ICD-10-PCS; 2023-08-03)
DX: R05.9 Cough, unspecified (principal); R06.02 Shortness of breath; J45.901 Unspecified asthma with (acute) exacerbation; J10.1 Influenza due to other identified influenza virus with other respiratory manifestations; Z20.822 Contact with and (suspected) exposure to COVID-19
CPT/HCPCS: 0241U-QW; 99284-25

== ENCOUNTER 2023-10-18 11:08 | Emergency (ER) | payer OTHER ==
[2023-10-18 11:16] VITALS: RESP 18; BMI 39.0
[2023-10-18] MEDS ORDERED: ALBUTEROL SO4 2.5/IPRATROPIUM 0.5 INH SOL 3 ML VIAL.NEB. NEB ONE (12:58)
[2023-10-18] MEDS ORDERED: predniSONE 20 MG TABLET (UD) ONE (12:59)
[2023-10-18] MEDS: ALBUTEROL SO4 2.5/IPRATROPIUM 0.5 INH SOL 3 ML VIAL.NEB. NEB ONE (13:05)
[2023-10-18] MEDS: predniSONE 20 MG TABLET (UD) PO ONE (13:05)
[2023-10-18] MEDS ORDERED: MAGNESIUM SULFATE IN WATER 2 GM/50 ML IVPB IVPB ONE (14:05)
[2023-10-18] MEDS: MAGNESIUM SULF 50% (8.12 MEQ/2 ML-1 GM VIAL) IVPB ONE (14:17)
[2023-10-18 15:30] VITALS: BP 115/55; PULSE 97; TEMP 98.3
== END 2023-10-18 16:33 | disposition home or self-care (01) ==
LOC: JER 11:08 → JERFT 11:08 → JER 16:33
PROC: 3E033NZ Introduction of Analgesics, Hypnotics, Sedatives into Peripheral Vein, Percutaneous Approach (ICD-10-PCS; principal; 2023-10-18)
PROC: 3E0F7GC Introduction of Other Therapeutic Substance into Respiratory Tract, Via Natural or Artificial Opening (ICD-10-PCS; 2023-10-18)
DX: R09.89 Other specified symptoms and signs involving the circulatory and respiratory systems (principal); R05.9 Cough, unspecified; R09.81 Nasal congestion; U07.1 COVID-19; R06.2 Wheezing
CPT/HCPCS: 0241U-QW; 71046-TC-FY; 99284-25

== ENCOUNTER 2023-11-15 12:01 | Inpatient (IN) | payer OTHER ==
[2023-11-15] MEDS ORDERED: MAGNESIUM SULFATE IN WATER 2 GM/50 ML IVPB IVPB ONE (14:26)
[2023-11-15] MEDS ORDERED: ALBUTEROL SO4 2.5/IPRATROPIUM 0.5 INH SOL 3 ML VIAL.NEB. NEB ONE ×2 (14:27→22:57)
[2023-11-15] MEDS: MAGNESIUM SULFATE IN WATER 2 GM/50 ML IVPB IVPB ONE (14:36)
[2023-11-15] MEDS: ALBUTEROL SO4 2.5/IPRATROPIUM 0.5 INH SOL 3 ML VIAL.NEB. NEB SCH (14:36)
[2023-11-15] MEDS: methylPREDNISolone NA SUCC 125 MG/2 ML VIAL IVPB ONE (16:02)
[2023-11-15] MEDS ORDERED: methylPREDNISolone NA SUCC 125 MG/2 ML VIAL ONE (16:03)
[2023-11-15] MEDS ORDERED: ALBUTEROL SO4 0.083% IH SOL 2.5 MG/3 ML VIAL.NEB. NEB ONE (17:29)
[2023-11-15] MEDS: ALBUTEROL SO4 0.083% IH SOL 2.5 MG/3 ML VIAL.NEB. NEB ONE (17:32)
[2023-11-15 19:25] LABS: HEMOGLOBIN 12.5 GM/dL (10.7-15.3); MCH 26.7 pg (25.7-33.7); MCHC 32.8 g/dl (32.0-36.0); MEAN CELL VOLUME 81.3 fl (80-96); MEAN PLT VOLUME 7.8 fl (7.5-11.1); PLATELET COUNT 320 10^3/uL (134-434); RBC 4.68 M/mm3 (3.60-5.2); RDW 14.4 % (11.6-15.6); WHITE BLOOD COUNT 8.4 K/mm3 (4.0-10.0)
[2023-11-15 19:50] LABS: POTASSIUM 3.3 mmol/L (3.5-5.1)
[2023-11-15 19:52] LABS: ALBUMIN 3.5 g/dl (3.4-5.0); BLOOD UREA NITROGEN 15.4 mg/dL (7-18)
[2023-11-15 19:55] LABS: CREATININE 0.7 mg/dL (0.55-1.3)
[2023-11-15 19:57] LABS: BILIRUBIN,TOTAL 0.4 mg/dL (0.2-1)
[2023-11-15 20:31] LABS: ANISOCYTOSIS 1+; MACROCYTOSIS 0; TEAR DROP CELLS 1+
[2023-11-15] MEDS: ALBUTEROL SO4 0.083% IH SOL 2.5 MG/3 ML VIAL.NEB. NEB SCH (23:17)
[2023-11-15] MEDS: IPRATROPIUM BR 0.02% 0.5 MG/2.5 ML VIAL.NEB. NEB SCH (23:17)
[2023-11-15] MEDS ORDERED: POTASSIUM CHLORIDE TABS 20 MEQ TABLET.ER (FP) PO ONE (23:55)
[2023-11-15] MEDS: POTASSIUM CHLORIDE TABS 20 MEQ TABLET.ER (FP) PO ONE (23:57)
[2023-11-16] MEDS: ACETAMINOPHEN 1000 MG/100 ML BAG IVPB ONE (02:24)
[2023-11-16 03:00] VITALS: BMI 39.2
[2023-11-16] MEDS ORDERED: TRIMETHOBENZAMIDE HCL 200MG/2ML INJ IM PRN (03:48)
[2023-11-16] MEDS: methylPREDNISolone NA SUCC 40 MG/1 ML VIAL IVPUSH SCH (05:42)
[2023-11-16 08:10] LABS: POTASSIUM 4.4 mmol/L (3.5-5.1)
[2023-11-16 08:12] LABS: EOS % 0.1 % (0-4.5); HEMATOCRIT 35.3 % (32.4-45.2); LYMPH % 8.7 % (8-40); MCH 27.6 pg (25.7-33.7); MCHC 34.1 g/dl (32.0-36.0); MEAN CELL VOLUME 81.1 fl (80-96); MEAN PLT VOLUME 8.1 fl (7.5-11.1); MONO % 5.3 % (3.8-10.2); NEUT % 85.9 % (42.8-82.8); PLATELET COUNT 346 10^3/uL (134-434); RBC 4.35 M/mm3 (3.60-5.2); RDW 14.5 % (11.6-15.6); WHITE BLOOD COUNT 7.2 K/mm3 (4.0-10.0)
[2023-11-16 08:23] LABS: CALCIUM 8.6 mg/dL (8.5-10.1)
[2023-11-16 08:24] LABS: BLOOD UREA NITROGEN 12.5 mg/dL (7-18); MAGNESIUM 2.3 mg/dL (1.8-2.4)
[2023-11-16 08:27] LABS: CREATININE 0.5 mg/dL (0.55-1.3); PHOSPHOROUS 2.6 mg/dL (2.5-4.9)
[2023-11-16] MEDS ORDERED: predniSONE 20 MG TABLET (UD) PO SCH (10:00)
[2023-11-16] MEDS: PANTOPRAZOLE 40 MG TABLET PO SCH (10:05)
[2023-11-16] MEDS: ENOXAPARIN NA (PORCINE) 40 MG/0.4 ML DISP.SYRIN SQ SCH (10:05)
[2023-11-16] MEDS: LACTOBACILLUS ACIDOPHILUS 1 TABLET PO SCH (10:33)
[2023-11-16] MEDS ORDERED: IPRATROPIUM BR 0.02% 0.5 MG/2.5 ML VIAL.NEB. NEB SCH (16:00)
[2023-11-16] MEDS: IPRATROPIUM BR 0.02% 0.5 MG/2.5 ML VIAL.NEB. NEB SCH (19:40)
[2023-11-17 09:51] LABS: HEMATOCRIT 40.3 % (32.4-45.2); HEMOGLOBIN 13.4 GM/dL (10.7-15.3); MCH 26.9 pg (25.7-33.7); MCHC 33.2 g/dl (32.0-36.0); MEAN CELL VOLUME 81.1 fl (80-96); MEAN PLT VOLUME 8.2 fl (7.5-11.1); PLATELET COUNT 427 10^3/uL (134-434); RBC 4.97 M/mm3 (3.60-5.2); RDW 14.7 % (11.6-15.6); WHITE BLOOD COUNT 15.8 K/mm3 (4.0-10.0)
[2023-11-17] MEDS ORDERED: BUDESONIDE/FORMETEROL FUMARATE 160/4.5 mcg INHALER IH SCH (10:00)
[2023-11-17] MEDS: FLUTICASONE/UMECLIDIN/VILANTER(200-62.5-25 TRELEGY ELLIPTA) INAHLER IH SCH (10:07)
[2023-11-17 10:10] LABS: POTASSIUM 4.6 mmol/L (3.5-5.1)
[2023-11-17 10:14] LABS: ALBUMIN 3.8 g/dl (3.4-5.0)
[2023-11-17 10:17] LABS: CREATININE 0.7 mg/dL (0.55-1.3)
[2023-11-17 10:18] LABS: BILIRUBIN,TOTAL 0.4 mg/dL (0.2-1); TOT PROT 7.8 g/dl (6.4-8.2)
[2023-11-17 10:39] LABS: ANISOCYTOSIS 2+; MACROCYTOSIS 0
[2023-11-17] MEDS: POLYETHYLENE GLYCOL (HEALTHYLAX) 3350 17 GM PACKET PO ONE (11:31)
[2023-11-17] MEDS: DOCUSATE SODIUM 100 MG CAPSULE (FP) PO SCH (17:26)
[2023-11-18] MEDS: FLUTICASONE PROP 0.05% 16 GM NASAL SPRAY NS SCH (17:29)
[2023-11-18] MEDS: AMOX TR/POT CLAV 500MG/125MG TABLETS (FP) PO SCH (17:31)
[2023-11-19] MEDS: methylPREDNISolone NA SUCC 40 MG/1 ML VIAL IVPUSH SCH (21:55)
[2023-11-20] MEDS: ALBUTEROL SO4 0.083% IH SOL 2.5 MG/3 ML VIAL.NEB. NEB ONE (01:52)
[2023-11-20 11:11] VITALS: BP 117/66; PULSE 110; RESP 20; TEMP 98.1
== END 2023-11-20 11:58 | disposition home or self-care (01) | DRG 141 ==
LOC: JER 12:01 → JERFT 12:01 → JERBED 21:48 → J8W 11-16 02:10 → J5S 11-17 12:07 → J8W 11-17 12:40 → OBSVTOIN 11-18 15:14
PROVIDERS: ADMIT Internal Medicine; ATTEND Nurse Practitioner Family
DX: J45.41 Moderate persistent asthma with (acute) exacerbation (principal); K21.9 Gastro-esophageal reflux disease without esophagitis; E66.01 Morbid (severe) obesity due to excess calories; Z68.39 Body mass index [BMI] 39.0-39.9, adult; Z77.22 Contact with and (suspected) exposure to environmental tobacco smoke (acute) (chronic); G47.33 Obstructive sleep apnea (adult) (pediatric)
CPT/HCPCS: 0241U-QW; 36415; 71046-TC-FY; 80048; 80053; 82962; 83036; 83735; 84100; 84484; 84703; 85025; 93005; 93010; 94150; 94640; 94761; 99285-25; G0378; J0131

== ENCOUNTER 2024-01-07 19:40 | Emergency (ER) | payer OTHER ==
[2024-01-07 19:54] VITALS: BP 143/80; PULSE 100; RESP 18; TEMP 98.6; BMI 40.3
[2024-01-07] MEDS: ALBUTEROL SO4 0.083% IH SOL 2.5 MG/3 ML VIAL.NEB. NEB PRN (20:05)
[2024-01-07] MEDS ORDERED: ALBUTEROL SO4 2.5/IPRATROPIUM 0.5 INH SOL 3 ML VIAL.NEB. NEB ONE (20:09)
[2024-01-07] MEDS ORDERED: methylPREDNISolone NA SUCC 125 MG/2 ML VIAL ONE (20:18)
[2024-01-07] MEDS ORDERED: KETOROLAC TROMETHAMINE 30 MG/1 ML VIAL ONE (20:23)
[2024-01-07] MEDS ORDERED: MAGNESIUM SULFATE IN WATER 2 GM/50 ML IVPB IVPB ONE (20:28)
[2024-01-07] MEDS: methylPREDNISolone NA SUCC 125 MG/2 ML VIAL IVPB ONE (20:32)
[2024-01-07] MEDS: MAGNESIUM SULF 50% (8.12 MEQ/2 ML-1 GM VIAL) IVPB ONE (20:32)
[2024-01-07] MEDS: KETOROLAC TROMETHAMINE 30 MG/1 ML VIAL IVPUSH ONE (20:33)
[2024-01-07] MEDS: predniSONE 20 MG TABLET (UD) PO ONE (20:34)
[2024-01-07] MEDS: ALBUTEROL SO4 2.5/IPRATROPIUM 0.5 INH SOL 3 ML VIAL.NEB. NEB ONE (20:34)
[2024-01-07 21:07] LABS: BASO % 0.5 % (0-2.0); EOS % 12.6 % (0-4.5); HEMATOCRIT 35.7 % (32.4-45.2); HEMOGLOBIN 12.4 GM/dL (10.7-15.3); LYMPH % 26.2 % (8-40); MCH 27.8 pg (25.7-33.7); MCHC 34.8 g/dl (32.0-36.0); MEAN PLT VOLUME 7.9 fl (7.5-11.1); MONO % 7.2 % (3.8-10.2); NEUT % 53.5 % (42.8-82.8); PLATELET COUNT 306 10^3/uL (134-434); RBC 4.47 M/mm3 (3.60-5.2); RDW 14.6 % (11.6-15.6); WHITE BLOOD COUNT 10.6 K/mm3 (4.0-10.0)
[2024-01-07 21:26] LABS: POTASSIUM 4.1 mmol/L (3.5-5.1)
[2024-01-07 21:28] LABS: ALBUMIN 3.6 g/dl (3.4-5.0)
[2024-01-07 21:29] LABS: CALCIUM 8.7 mg/dL (8.5-10.1)
[2024-01-07 21:30] LABS: BLOOD UREA NITROGEN 20.9 mg/dL (7-18)
[2024-01-07 21:33] LABS: CREATININE 0.9 mg/dL (0.55-1.3)
[2024-01-07 21:34] LABS: BILIRUBIN,TOTAL 0.4 mg/dL (0.2-1); TOT PROT 6.7 g/dl (6.4-8.2)
== END 2024-01-07 21:53 | disposition home or self-care (01) ==
LOC: JERFT 19:40
PROC: 3E033GC Introduction of Other Therapeutic Substance into Peripheral Vein, Percutaneous Approach (ICD-10-PCS; principal; 2024-01-07)
PROC: 3E033GC Introduction of Other Therapeutic Substance into Peripheral Vein, Percutaneous Approach (ICD-10-PCS; 2024-01-07)
PROC: 3E03329 Introduction of Other Anti-infective into Peripheral Vein, Percutaneous Approach (ICD-10-PCS; 2024-01-07)
PROC: 3E0F7GC Introduction of Other Therapeutic Substance into Respiratory Tract, Via Natural or Artificial Opening (ICD-10-PCS; 2024-01-07)
DX: J45.901 Unspecified asthma with (acute) exacerbation (principal); R05.9 Cough, unspecified; R51.9 Headache, unspecified
CPT/HCPCS: 36415; 71046-TC-FY; 80053; 85025; 99284-25

== ENCOUNTER 2024-02-24 11:13 | Observation (INO) | payer OTHER ==
[2024-02-24] MEDS ORDERED: ALBUTEROL SO4 2.5/IPRATROPIUM 0.5 INH SOL 3 ML VIAL.NEB. NEB ONE ×2 (11:36→12:00)
[2024-02-24] MEDS ORDERED: methylPREDNISolone NA SUCC 125 MG/2 ML VIAL ONE (11:45)
[2024-02-24] MEDS ORDERED: ACETAMINOPHEN 500 MG TABLET (FP) ONE (11:46)
[2024-02-24] MEDS: ALBUTEROL SO4 2.5/IPRATROPIUM 0.5 INH SOL 3 ML VIAL.NEB. NEB ONE (12:00)
[2024-02-24] MEDS: methylPREDNISolone NA SUCC 125 MG/2 ML VIAL IVPUSH ONE (12:00)
[2024-02-24] MEDS: ACETAMINOPHEN 500 MG TABLET (FP) PO ONE (12:00)
[2024-02-24] MEDS: predniSONE 20 MG TABLET (UD) PO ONE (12:12)
[2024-02-24] MEDS ORDERED: ALBUTEROL SO4 0.083% IH SOL 2.5 MG/3 ML VIAL.NEB. NEB ONE ×3 (13:10→20:35)
[2024-02-24] MEDS: ALBUTEROL SO4 0.083% IH SOL 2.5 MG/3 ML VIAL.NEB. NEB ONE ×2 (13:12→14:46)
[2024-02-24 16:49] LABS: HEMATOCRIT 35.7 % (32.4-45.2); HEMOGLOBIN 12.2 GM/dL (10.7-15.3); MCH 27.8 pg (25.7-33.7); MEAN CELL VOLUME 81.8 fl (80-96); RBC 4.37 M/mm3 (3.60-5.2); WHITE BLOOD COUNT 9.7 K/mm3 (4.0-10.0)
[2024-02-24 16:50] LABS: MEAN PLT VOLUME 7.6 fl (7.5-11.1); PLATELET COUNT 320 10^3/uL (134-434); RDW 13.6 % (11.6-15.6)
[2024-02-24 16:52] VITALS: RESP 18
[2024-02-24 17:17] LABS: CHLORIDE 106 mmol/L (98-107); SODIUM 140 mmol/L (136-145)
[2024-02-24 17:19] LABS: BLOOD UREA NITROGEN 13.1 mg/dL (7-18); CALCIUM 8.7 mg/dL (8.5-10.1)
[2024-02-24 17:20] LABS: ALBUMIN 3.8 g/dl (3.4-5.0); CO2 26 mmol/L (21-32); GLUCOSE,RANDOM 202 mg/dL (74-106)
[2024-02-24 17:23] LABS: ANISOCYTOSIS 1+; CREATININE 0.8 mg/dL (0.55-1.3); MACROCYTOSIS 0; SGOT/AST 11 U/L (15-37); SGPT/ALT 16 U/L (13-61)
[2024-02-24 17:24] LABS: BILIRUBIN,TOTAL 0.4 mg/dL (0.2-1); TOT PROT 7.1 g/dl (6.4-8.2)
[2024-02-24 17:25] LABS: ALK PHOS 49 U/L (45-117); ANION GAP 8 mmol/L (4-13); PLATELET ESTIMATE ADEQUATE; POTASSIUM 2.8 mmol/L (3.5-5.1)
[2024-02-24 18:05] LABS: ARTERIAL BLD GAS O2 SATURATION 96.9 % (95-98); ARTERIAL BLOOD GAS BASE EXCESS -1.8 mmol/L (-2-2); ARTERIAL BLOOD GAS PO2 84.6 mmHg (80-100); ARTERIAL BLOOD GAS pH 7.448 (7.350-7.450)
[2024-02-24 18:11] LABS: ALLENS TEST POSITIVE
[2024-02-24] MEDS ORDERED: KCL 10 MEQ IVPB 10 MEQ/100 ML INFUS.BAG IVPB ONE (19:18)
[2024-02-24] MEDS ORDERED: POTASSIUM CHLORIDE ORAL LIQUID 20 MEQ/15 ML ONE (19:18)
[2024-02-24] MEDS ORDERED: POTASSIUM CHLORIDE TABS 20 MEQ TABLET.ER (FP) PO ONE (19:23)
[2024-02-24] MEDS: KCL 10 MEQ IVPB 10 MEQ/100 ML INFUS.BAG IVPB SCH (19:47)
[2024-02-24] MEDS: POTASSIUM CHLORIDE TABS 20 MEQ TABLET.ER (FP) PO ONE (19:47)
[2024-02-24] MEDS ORDERED: IPRATROPIUM BR 0.02% 0.5 MG/2.5 ML VIAL.NEB. NEB ONE (19:52)
[2024-02-24] MEDS: IPRATROPIUM BR 0.02% 0.5 MG/2.5 ML VIAL.NEB. NEB SCH (20:01)
[2024-02-24] MEDS: ALBUTEROL SO4 0.083% IH SOL 2.5 MG/3 ML VIAL.NEB. NEB SCH (20:47)
[2024-02-24 21:35] VITALS: BMI 35.5
[2024-02-24] MEDS: methylPREDNISolone NA SUCC 40 MG/1 ML VIAL IVPUSH SCH (22:19)
[2024-02-25] MEDS: ACETAMINOPHEN/CAFFEINE/BUTALBITAL 1 TAB PO ONE (00:48)
[2024-02-25] MEDS: diphenhydrAMINE HCL 25 MG CAPSULE (FP) PO ONE (05:29)
[2024-02-25 08:36] LABS: HEMATOCRIT 38.8 % (32.4-45.2); HEMOGLOBIN 12.9 GM/dL (10.7-15.3); MCH 27.4 pg (25.7-33.7); MCHC 33.3 g/dl (32.0-36.0); MEAN CELL VOLUME 82.4 fl (80-96); PLATELET COUNT 380 10^3/uL (134-434); RBC 4.72 M/mm3 (3.60-5.2); RDW 13.9 % (11.6-15.6); WHITE BLOOD COUNT 11.8 K/mm3 (4.0-10.0)
[2024-02-25 08:52] LABS: POTASSIUM 4.8 mmol/L (3.5-5.1)
[2024-02-25 08:53] LABS: CALCIUM 9.4 mg/dL (8.5-10.1)
[2024-02-25 08:54] LABS: BLOOD UREA NITROGEN 11.5 mg/dL (7-18); MAGNESIUM 2.3 mg/dL (1.8-2.4)
[2024-02-25 08:57] LABS: CREATININE 0.5 mg/dL (0.55-1.3)
[2024-02-25] MEDS: ENOXAPARIN NA (PORCINE) 40 MG/0.4 ML DISP.SYRIN SQ SCH (09:38)
[2024-02-25 10:03] LABS: ANISOCYTOSIS 0; HELMET CELLS 0; HOWELL-JOLLY BODIES 0; MACROCYTOSIS 0; OVALOCYTE 0; ROULEAU 0; SICKELED CELLS 0; TARGET CELLS 0; TEAR DROP CELLS 0; TOXIC GRANULATION 0
[2024-02-25] MEDS: FLUTICASONE/UMECLIDIN/VILANTER(100-62.5-25 TRELEGY ELLIPTA) INAHLER IH SCH (17:23)
[2024-02-25] MEDS ORDERED: diphenhydrAMINE HCL 25 MG CAPSULE (FP) PO PRN (19:45)
[2024-02-26 07:47] VITALS: BP 116/86; PULSE 85; TEMP 97.8
[2024-02-26 08:12] LABS: BASO % 0.4 % (0-2.0); HEMATOCRIT 37.1 % (32.4-45.2); HEMOGLOBIN 12.4 GM/dL (10.7-15.3); MCH 27.6 pg (25.7-33.7); MCHC 33.5 g/dl (32.0-36.0); MEAN CELL VOLUME 82.4 fl (80-96); MEAN PLT VOLUME 8.3 fl (7.5-11.1); MONO % 4.7 % (3.8-10.2); NEUT % 87.9 % (42.8-82.8); PLATELET COUNT 398 10^3/uL (134-434); RDW 14.1 % (11.6-15.6); WHITE BLOOD COUNT 15.3 K/mm3 (4.0-10.0)
[2024-02-26 08:34] LABS: POTASSIUM 4.6 mmol/L (3.5-5.1)
[2024-02-26 08:41] LABS: BLOOD UREA NITROGEN 15.9 mg/dL (7-18); CALCIUM 9.3 mg/dL (8.5-10.1)
[2024-02-26 08:45] LABS: CREATININE 0.6 mg/dL (0.55-1.3)
[2024-02-26] MEDS ORDERED: MONTELUKAST NA 10 MG TABLET PO SCH (10:00)
== END 2024-02-26 10:49 | disposition home or self-care (01) ==
LOC: JER 11:13 → JERBED 16:16 → J7W 21:22
PROVIDERS: ADMIT Student in an Organized Health Care Education/Training Program; ATTEND Internal Medicine
PROC: 3E0F7GC Introduction of Other Therapeutic Substance into Respiratory Tract, Via Natural or Artificial Opening (ICD-10-PCS; principal; 2024-02-24)
PROC: 3E033GC Introduction of Other Therapeutic Substance into Peripheral Vein, Percutaneous Approach (ICD-10-PCS; 2024-02-24)
DX: J45.901 Unspecified asthma with (acute) exacerbation (principal); J98.11 Atelectasis; K21.9 Gastro-esophageal reflux disease without esophagitis; F32.A Depression, unspecified; Z90.49 Acquired absence of other specified parts of digestive tract; E66.9 Obesity, unspecified; J30.2 Other seasonal allergic rhinitis; Z87.891 Personal history of nicotine dependence; Z88.0 Allergy status to penicillin
CPT/HCPCS: 0241U-QW; 36415; 36600; 71045-TC-FY; 80048; 80053; 82803; 82962; 83735; 85025; 93005; 93010; 94640; 96365; 96375; 96376; 99285-25; G0378

== ENCOUNTER 2024-03-11 10:26 | Emergency (ER) | payer OTHER ==
[2024-03-11 10:34] VITALS: BMI 35.0
[2024-03-11] MEDS ORDERED: ALBUTEROL SO4 2.5/IPRATROPIUM 0.5 INH SOL 3 ML VIAL.NEB. NEB ONE (10:35)
[2024-03-11] MEDS ORDERED: methylPREDNISolone NA SUCC 40 MG/1 ML VIAL ONE (11:01)
[2024-03-11] MEDS: methylPREDNISolone NA SUCC 40 MG/1 ML VIAL IVPUSH ONE (11:06)
[2024-03-11] MEDS: ALBUTEROL SO4 2.5/IPRATROPIUM 0.5 INH SOL 3 ML VIAL.NEB. NEB ONE (11:06)
[2024-03-11 11:23] LABS: BASO % 0.4 % (0-2.0); EOS % 10.1 % (0-4.5); HEMATOCRIT 36.9 % (32.4-45.2); HEMOGLOBIN 12.6 GM/dL (10.7-15.3); LYMPH % 16.4 % (8-40); MCH 27.6 pg (25.7-33.7); MCHC 34.1 g/dl (32.0-36.0); MEAN PLT VOLUME 8.1 fl (7.5-11.1); MONO % 7.6 % (3.8-10.2); NEUT % 65.5 % (42.8-82.8); PLATELET COUNT 244 10^3/uL (134-434); RBC 4.56 M/mm3 (3.60-5.2); RDW 14.4 % (11.6-15.6); WHITE BLOOD COUNT 7.4 K/mm3 (4.0-10.0)
[2024-03-11 11:28] LABS: VENOUS BASE EXCESS -0.1 mmol/L (-2-2); VENOUS O2 SATURATION 51.8 % (70-80); VENOUS PCO2 49.2 mmHg (38-52); VENOUS PH 7.344 (7.310-7.410)
[2024-03-11 11:40] LABS: CALCIUM 8.6 mg/dL (8.5-10.1)
[2024-03-11 11:41] LABS: ALBUMIN 3.6 g/dl (3.4-5.0); BLOOD UREA NITROGEN 13.8 mg/dL (7-18)
[2024-03-11 11:44] LABS: CREATININE 0.6 mg/dL (0.55-1.3)
[2024-03-11 11:46] LABS: BILIRUBIN,TOTAL 0.7 mg/dL (0.2-1); TOT PROT 6.6 g/dl (6.4-8.2)
[2024-03-11 13:24] VITALS: BP 113/67; PULSE 84; RESP 18; TEMP 98.2
[2024-03-11 14:49] LABS: HIV INTERPRETATION NEGATIVE (NEGATIVE)
== END 2024-03-11 13:24 | disposition home or self-care (01) ==
LOC: JER 10:26
PROC: 3E033GC Introduction of Other Therapeutic Substance into Peripheral Vein, Percutaneous Approach (ICD-10-PCS; principal; 2024-03-11)
PROC: 3E0F7GC Introduction of Other Therapeutic Substance into Respiratory Tract, Via Natural or Artificial Opening (ICD-10-PCS; 2024-03-11)
DX: J45.901 Unspecified asthma with (acute) exacerbation (principal); R06.02 Shortness of breath; R05.9 Cough, unspecified; Z20.822 Contact with and (suspected) exposure to COVID-19
CPT/HCPCS: 0241U-QW; 36415; 80053; 82803; 85025; 86803; 87389; 93005; 93010; 99284-25

== ENCOUNTER 2024-03-16 18:47 | Emergency (ER) | payer OTHER ==
[2024-03-16 18:55] VITALS: BP 113/75; PULSE 98; RESP 18; TEMP 98.7; BMI 39.8
[2024-03-16] MEDS ORDERED: ALBUTEROL SO4 2.5/IPRATROPIUM 0.5 INH SOL 3 ML VIAL.NEB. NEB ONE (21:47)
[2024-03-16] MEDS ORDERED: DEXAMETHASONE SOD PHOSPHATE 10 MG/1 ML VIAL ONE (21:47)
[2024-03-16] MEDS ORDERED: MAGNESIUM SULFATE IN WATER 2 GM/50 ML IVPB IVPB ONE (21:52)
[2024-03-16] MEDS: ALBUTEROL SO4 2.5/IPRATROPIUM 0.5 INH SOL 3 ML VIAL.NEB. NEB ONE (22:09)
[2024-03-16] MEDS: DEXAMETHASONE 4 MG TABLET (FP) PO ONE (22:09)
[2024-03-16] MEDS: MAGNESIUM SULFATE IN WATER 2 GM/50 ML IVPB IVPB ONE (22:09)
[2024-03-16 22:16] LABS: HEMATOCRIT 35.5 % (32.4-45.2); HEMOGLOBIN 12.1 GM/dL (10.7-15.3); MCH 27.7 pg (25.7-33.7); MEAN CELL VOLUME 81.4 fl (80-96); MEAN PLT VOLUME 7.8 fl (7.5-11.1); PLATELET COUNT 281 10^3/uL (134-434); RBC 4.36 M/mm3 (3.60-5.2); RDW 14.3 % (11.6-15.6); WHITE BLOOD COUNT 9.2 K/mm3 (4.0-10.0)
[2024-03-16 22:41] LABS: POTASSIUM 4.7 mmol/L (3.5-5.1)
[2024-03-16 22:43] LABS: BLOOD UREA NITROGEN 17.1 mg/dL (7-18); CALCIUM 9.4 mg/dL (8.5-10.1)
[2024-03-16 22:47] LABS: CREATININE 0.7 mg/dL (0.55-1.3)
[2024-03-16 22:50] LABS: ANISOCYTOSIS 0; MACROCYTOSIS 0
[2024-03-16] MEDS ORDERED: ALBUTEROL SO4 0.083% IH SOL 2.5 MG/3 ML VIAL.NEB. NEB ONE (23:54)
[2024-03-17] MEDS: ALBUTEROL SO4 0.083% IH SOL 2.5 MG/3 ML VIAL.NEB. NEB ONE (00:04)
== END 2024-03-17 01:29 | disposition home or self-care (01) ==
LOC: JER 18:47
PROC: 3E033GC Introduction of Other Therapeutic Substance into Peripheral Vein, Percutaneous Approach (ICD-10-PCS; principal; 2024-03-16)
PROC: 3E0F7GC Introduction of Other Therapeutic Substance into Respiratory Tract, Via Natural or Artificial Opening (ICD-10-PCS; 2024-03-16)
PROC: 3E0F7GC Introduction of Other Therapeutic Substance into Respiratory Tract, Via Natural or Artificial Opening (ICD-10-PCS; 2024-03-16)
DX: J98.01 Acute bronchospasm (principal); Z20.822 Contact with and (suspected) exposure to COVID-19
CPT/HCPCS: 0241U-QW; 36415; 80048; 85025; 99284-25

== ENCOUNTER 2024-03-29 14:59 | Emergency (ER) | payer OTHER ==
[2024-03-29 15:26] VITALS: RESP 18; BMI 87.8
[2024-03-29] MEDS ORDERED: ACETAMINOPHEN INJECTION 100 ML ONE (16:34)
[2024-03-29] MEDS: SODIUM CHLORIDE 0.9% 500 ML INFUS.BAG IV ONE (16:51)
[2024-03-29] MEDS: ACETAMINOPHEN 1000 MG/100 ML BAG IVPB ONE (16:51)
[2024-03-29 17:08] LABS: BASO % 0.1 % (0-2.0); EOS % 0.6 % (0-4.5); HEMATOCRIT 39.5 % (32.4-45.2); HEMOGLOBIN 13.5 GM/dL (10.7-15.3); LYMPH % 9.2 % (8-40); MCH 27.4 pg (25.7-33.7); MCHC 34.1 g/dl (32.0-36.0); MEAN CELL VOLUME 80.4 fl (80-96); MEAN PLT VOLUME 8.1 fl (7.5-11.1); MONO % 9.6 % (3.8-10.2); NEUT % 80.5 % (42.8-82.8); PLATELET COUNT 261 10^3/uL (134-434); RBC 4.92 M/mm3 (3.60-5.2); RDW 14.5 % (11.6-15.6); WHITE BLOOD COUNT 8.1 K/mm3 (4.0-10.0)
[2024-03-29 17:10] LABS: EPI CELLS 28 /uL (0-25.1); HYALINE CASTS 1 /uL (0-3.1); PH,URINE 5.5 (5.0-8.0); URINE APPEARANCE CLEAR; URINE BACTERIA 41 /uL (0-1359); URINE BILIRUBIN NEGATIVE (NEGATIVE); URINE COLOR YELLOW; URINE GLUCOSE (UA) NEGATIVE (NEGATIVE); URINE KETONE NEGATIVE (NEGATIVE); URINE LEUK ESTERASE 1+ (NEGATIVE); URINE NITRITE NEGATIVE (NEGATIVE); URINE PROTEIN TRACE (NEGATIVE); URINE RBC 56 /uL (0-23.9); URINE UROBILINOGEN 0.2 mg/dL (0.2-1.0); URINE WBC 96 /uL (0-25.8)
[2024-03-29 17:18] LABS: POTASSIUM 3.9 mmol/L (3.5-5.1)
[2024-03-29 17:20] LABS: CALCIUM 8.8 mg/dL (8.5-10.1)
[2024-03-29 17:21] LABS: ALBUMIN 2.8 g/dl (3.4-5.0); BLOOD UREA NITROGEN 13.1 mg/dL (7-18)
[2024-03-29 17:24] LABS: CREATININE 0.9 mg/dL (0.55-1.3)
[2024-03-29 17:25] LABS: BILIRUBIN,TOTAL 0.3 mg/dL (0.2-1)
[2024-03-29 17:26] LABS: TOT PROT 6.5 g/dl (6.4-8.2)
[2024-03-29 19:15] VITALS: BP 102/64; PULSE 87; TEMP 98.9
== END 2024-03-29 20:11 | disposition home or self-care (01) ==
LOC: JER 14:59
PROC: 3E033NZ Introduction of Analgesics, Hypnotics, Sedatives into Peripheral Vein, Percutaneous Approach (ICD-10-PCS; principal; 2024-03-29)
DX: M54.50 Low back pain, unspecified (principal); R10.2 Pelvic and perineal pain; N12 Tubulo-interstitial nephritis, not specified as acute or chronic; R35.0 Frequency of micturition; R39.15 Urgency of urination
CPT/HCPCS: 36415; 74176-TC; 76830-TC; 80053; 81003; 84703; 85025; 87040; 87086; 99284-25; J0131